=== PATIENT | female | born 1980 | race Caucasian/White ===

== ENCOUNTER → 2019-08-15 14:23 | Outpatient (CLI) | payer OTHER, SELFPAY ==
--- NOTE | ~2019-08-15 | MMUS_ITS ---
EXAMINATION: MM diagnostic sandra BI w grant, US breast BI limited HISTORY: Palpable lump at the 3:00 location of the right breast TECHNIQUE: Craniocaudal, mediolateral, and mediolateral oblique 3-D tomosynthesis images of the roshan ts were performed and synthetic 2-D images were generated. CAD analysis was submitted and interpreted . High resolution limited bilateral breast ultrasound was performed. COMPARISON: No prior mammogram is currently available for comparison. BREAST PARENCHYMAL COMPOSITION: There are scattered areas of fibroglandular density. FINDINGS: MAMMOGRAPHIC FINDINGS: Right breast: There is no suspicious mass, calcification, or architectural distortion. No mammographi c correlate is identified for the reported palpable abnormality of concern in the right breast. Left breast: There is a 3 mm round, equal density mass in the anterior third of the outer breast at t he 3:00 location 4 cm from the nipple which has suggestion of an internal fat component. No suspiciou s calcification or architectural distortion are identified. ULTRASOUND: There is no evidence of focal abnormal solid or cystic lesion in the vicinity of the reported palpabl e abnormality of concern in the right breast. There is a 4 mm oval, circumscribed, parallel, hypoecho ic mass with subtle central echogenicity at the 3:00 location near the nipple corresponding to the ma mmographic finding in question the left breast which has imaging features of an intramammary lymph no de. IMPRESSION: 1. No specific mammographic or sonographic correlate is identified for the reported palpable abnormal ity of concern in the right breast. Further evaluation at this time should be based on clinical asses sment. Continued follow-up physical examination is recommended. 2. Recommend routine screening mammography in one year. BI-RADS Category 2: Benign finding(s). Reviewed, dictated and finalized at location A. IMPRESSION: 1. No specific mammographic or sonographic correlate is identified for the repo rted palpable abnormality of concern in the right breast. Further evaluation at this time should be based on clinical assessment. Continued follow-up physical examination is recommended. 2. Recommend routine screening mammography in one year. BI-RADS Category 2: Benign finding(s).
== END ==
PROVIDERS: Visit Provider Nurse Practitioner Obstetrics & Gynecology
DX: N64.4 Mastodynia (principal); N63.10 Unspecified lump in the right breast, unspecified quadrant
CPT/HCPCS: 76642; 77062; 77066; G0279

== ENCOUNTER 2019-12-28 15:15 | Outpatient (RCR) | payer OTHER, SELFPAY ==
--- NOTE | 2019-11-28 16:17 | PTOPEVAL ---
PHYSICAL THERAPY EVALUATION Thank you for referring Jin Man to [facility].? The patient was evaluated with the diagnosis of rosas. ankle/foot pain. The patient is scheduled to be seen for therapy? 2 x/week for 4 weeks. Please review, sign, date and return this plan of care FANI. I agree with and certify that the following plan of care is medically necessary. Referring Physician Date Attending Provider: Adrianna Emery NP *PT Outpatient Evaluation Start: 11/28/19 15:03 Freq: Status: Active Protocol: Document 11/28/19 15:04 [facility] (Rec: 11/28/19 16:17 [facility] [id number]) Evaluation Evaluation Information Problem Diagnosis rosas. foot pain Onset chronic Cause started after achilles surgery Additional Evaluation Detail The patient had the left achilles repaired 3-4 years ago and plantar faciitis rosas. The patient had shots but it didn't help-had no therapy. Subjective Information The patient saw the MD due to Query Text:As Reported By Patient/ rosas. leg rash and foot pain. Family The patient has increased pain at ankles over time-worse the last 5 months. The more she is on her feet, the worse the pain gets. 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 Home Meds Must Be Re-entered With Each Visit. Pain Assessment Timing of Pain Assessment Timing of Pain Assessment Assessment Pain Scale Pain Scale Used Numeric (1 - 10) Self Report Pain Assessment Right Ankle(s) Reported Pain Level 5 Pain Description Pinching,Pressure,Tightness Pain Frequency C
--- NOTE | 2019-12-05 16:26 | PCPTNOTE ---
Patient called & cancelled scheduled appointment this date due to patient scheduling error.
--- NOTE | 2020-01-09 08:44 | PTOPEVAL ---
PHYSICAL THERAPY DISCHARGE SUMMARY Thank you for referring Jin Man to [facility].? The patient has been seen for therapy? 2x/week for 4 weeks. All goals have been met and PT is discontinued. Please review, sign, date and return this plan of care FANI. I agree with and certify that the following plan of care is medically necessary. Referring Physician Date Attending Provider: Adrianna Emery NP *PT Outpatient Evaluation Start: 11/28/19 15:03 Freq: Status: Active Protocol: Document 01/09/20 08:33 [facility] (Rec: 01/09/20 08:43 [facility] [email or web address]) Therapy Assessment Status Assessment Status Discharge Pain Assessment Timing of Pain Assessment Timing of Pain Assessment Post-Treatment Pain Scale Pain Scale Used Numeric (1 - 10) Self Report Pain Assessment Right Ankle(s) Reported Pain Level 0 Left Ankle(s) Reported Pain Level 0 Pain Score Pain Score 0,0: Self Report Interventions Used Interventions Used By Clinicians Education,Exercise,Manual Therapy Techniques,Ultrasound Pain Relief Interventions Used By Exercise,Inactivity/Rest, Patient Walking Lower Extremity Range of Motion General Lower Extremity Range of Motion Gross Lower Extremity Range of Motion ankle active motion: left DF Comments 10, PF 63, inversion 38, eversion 32 (all improved) right ankle DF 12, PF 46, inversion 43, eversion 24 Lower Extremity Muscle Strength Testing General Lower Extremity Strength Reason Not Measured WNL/Left,WNL/Right Gross Lower Extremity Strength *patient able to rise to toes rosas. without pain *patient able to stand single leg without discomfort for 30 seconds + without support Palpation Assessment Palpation Palpation non tender at left achilles and scar. Scar adhesions and achilles tendon 75% + improved flexibility. Gait Assessment Gait Pattern Assessment Gait Pattern No Deviations/Normal Other Gait Observations gait greatly improved and minimal to no notable deviations on level surfaces and with mild challenges 2 Minute Walk Total Distance Walked (feet) 464 2 Minute Walk Gait Speed Score (feet/ 3.86 second) Number of Breaks Required 0 2 Minute Walk Test Comments moderate increased limp left after 150' and no heel strike or toe off rosas. throughout
== END 2020-02-14 15:40 | disposition home or self-care (01) ==
LOC: ANHPT 15:15
PROVIDERS: PCP Internal Medicine; Visit Provider Nurse Practitioner
DX: M79.671 Pain in right foot (principal); M79.672 Pain in left foot
CPT/HCPCS: 97035; 97110; 97140; 97162

== ENCOUNTER → 2020-04-15 10:51 | Outpatient (CLI) | payer OTHER, SELFPAY ==
--- NOTE | ~2020-04-15 | US_ITS ---
EXAMINATION: US renal BI EXAM DATE: 04/15/2020 11:37 INDICATION: Cyst of kidney. CT scan outside institution one week ago demonstrating 1.3 cm hypodensity right. TECHNIQUE: Multiple grayscale and Doppler images of the kidneys were obtained (by a technologist who performed the scan) and subsequently reviewed. There is no prior study for comparison. FINDINGS: Right kidney: There is normal contour and echogenicity. It measures 11.2 x 5.1 x 5.0 centimeters. He terogeneous echogenicity region measuring 2.3 x 1.6 x 2.0 cm. Portion appears cystic and another port ion appears hyperechoic, could be hemorrhage, fat, calcium, milk of calcium. Sonographically indeterm inate lesion. There is no hydronephrosis. Left kidney: There is normal contour and echogenicity. It measures 10.5 x 5.2 x 6.0 centimeters. Th ere are no focal renal lesions identified. There is no hydronephrosis. Bladder unremarkable. IMPRESSION: Indeterminate right renal lesion. CT or MRI abdomen without and with contrast recommended . Reviewed, dictated and finalized at location B. 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 CT or MRI abdomen without and wit h contrast recommended.
--- NOTE | ~2020-04-15 | US_ITS ---
EXAMINATION: US transvaginal DATE: 04/15/2020 11:37 INDICATION: Hemoperitoneum, left adnexal cyst TECHNIQUE: Multiple endovaginal sonographic images of the pelvis were obtained. COMPARISON: None. FINDINGS: The uterus is surgically absent. The right ovary is not visualized however no right adnexal abnormality is seen. The left ovary measures 2.7 x 1.8 x 2.9 cm. No abnormality of the left adnexa i s seen.. There is normal vascular flow in the left ovary. There is no free fluid in the pelvis. IMPRESSION: 1. No left adnexal cyst or free pelvic fluid identified. Reviewed, dictated and finalized at location A. 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
--- NOTE | ~2020-04-15 | XR_ITS ---
EXAMINATION: XR hip RT min 2V DATE: 04/15/2020 11:42 INDICATION: Right hip pain TECHNIQUE: Two views of right hip were obtained. COMPARISON: None. FINDINGS: Bone alignment is normal. There is no fracture. A bone island is noted in the right acetabu lum. The soft tissues are unremarkable. IMPRESSION: 1. Normal right hip radiographs. 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
== END ==
PROVIDERS: PCP Internal Medicine; Visit Provider Clinical Nurse Specialist
DX: M25.551 Pain in right hip (principal); K66.1 Hemoperitoneum; N28.1 Cyst of kidney, acquired; N94.9 Unspecified condition associated with female genital organs and menstrual cycle
CPT/HCPCS: 73502; 76775; 76830

== ENCOUNTER 2020-04-25 16:28 | Outpatient (CLI) | payer OTHER, SELFPAY ==
--- NOTE | ~2020-04-25 | MR_ITS ---
EXAMINATION: MR abdomen wo/w con DATE: 04/25/2020 17:59 INDICATION: Indeterminate right renal lesion TECHNIQUE: Magnetic resonance imaging (MRI) of the abdomen was performed without and with 18 mL Multi darren intravenous contrast. Sequences included coronal T2-weighted SS-FSE, coronal and axial FS 2D-F IESTA, axial STIR FSE, axial T2-weighted SS-FSE, axial T2-weighted FS SS-FSE, axial diffusion-weighte d SE, axial dual-echo T1-weighted FSPGR, and axial and coronal T1-weighted LAVA. Postcontrast axial T 1-weighted LAVA images were obtained in a time course. Postcontrast coronal T1-weighted LAVA images w ere obtained. COMPARISON: Ultrasound dated 04/15/2020 FINDINGS: Heart size is normal. No pericardial or pleural effusion. All bladder is not visualized and likely posadas rgically absent. Liver, spleen, pancreas, bilateral adrenal glands and left kidney are normal. 1.3 cm mildly complex cystic lesion at the lower pole of the right kidney with hairline thin internal septa tion with very subtle discernible but not measurable enhancement consistent with a Bosniak 2 lesion. Small fluid-filled diverticulum at the proximal descending colon without adjacent inflammatory change to suggest diverticulitis. Bowels are otherwise unremarkable. No pathologically enlarged abdominal l ymphadenopathy. Bones are unremarkable with normal marrow signal throughout. IMPRESSION: 1. Minimally complex 1.3 cm benign Bosniak 2 cystic lesion at the lower pole of the right kidney whic h requires no further follow-up. Reviewed, dictated and finalized at location A. IMPRESSION: 1. Minimally complex 1.3 cm benign Bosniak 2 cystic lesion at the lower pole of the right kidney which requires no further follow-up.
[2020-04-25 17:21] LABS: Estimated Glomerular Filt Rate > 60
== END 2020-04-25 16:29 | disposition home or self-care (01) ==
PROVIDERS: PCP Internal Medicine; Visit Provider Clinical Nurse Specialist
DX: N28.9 Disorder of kidney and ureter, unspecified (principal)
CPT/HCPCS: 74183; A9577

== ENCOUNTER → 2020-05-29 13:24 | Outpatient (CLI) | payer OTHER, SELFPAY ==
--- NOTE | ~2020-05-29 | XR_ITS ---
XR ankle RT min 3V DATE: 05/29/2020 14:12 INDICATION: Right ankle injury, sprain TECHNIQUE: 4 views COMPARISON: None FINDINGS: There is mild soft tissue swelling, greater laterally. No recent fracture or dislocation of the ankle or disruption of the ankle mortise. There is suggestio n of ankle joint effusion. No periosteal reaction or bone destruction. Mild plantar calcaneal enthesopathy. IMPRESSION: Suggestion of ankle joint effusion Soft tissue swelling Mild plantar calcaneal enthesopathy Reviewed, dictated and finalized at location A.
== END ==
PROVIDERS: PCP Internal Medicine; Visit Provider Clinical Nurse Specialist
DX: S93.409A Sprain of unspecified ligament of unspecified ankle, initial encounter (principal); M79.89 Other specified soft tissue disorders; M77.31 Calcaneal spur, right foot
CPT/HCPCS: 73610

== ENCOUNTER → 2020-06-30 15:19 | Outpatient (CLI) | payer OTHER, SELFPAY ==
--- NOTE | ~2020-06-30 | MR_ITS ---
EXAMINATION: MR ankle RT wo con DATE: 06/30/2020 16:02 INDICATION: Right ankle sprain post injury one and a half months prior presenting with persistent med ial sided pain, swelling and burning sensation. TECHNIQUE: Magnetic resonance imaging (MRI) of the right ankle was performed without intravenous cont rast. Sequences included sagittal, coronal, and axial proton-density weighted fast spin echo without and with fat saturation. COMPARISON: None. FINDINGS: Medial ankle ligaments: There is prominent thickening and amorphous increased signal of the anterior superficial deltoid liga ment with surrounding soft tissue edema consistent with moderate grade sprain. There is additional in creased signal and disorganized appearance to the deep deltoid ligament including lax and discontiguo us ligament fibers consistent with additional moderate to high-grade sprain. The spring ligament comp reji remains normal. Lateral ankle ligaments: The anterior and posterior inferior tibiofibular and posterior talofibular ligaments are normal. Ther e are additional moderate to high-grade tears of the anterior talofibular and calcaneofibular ligamen ts. Tendons: Achilles tendon is normal. The peroneus longus and brevis tendons are normal. The tibialis anterior a nd extensor hallucis longus and extensor digitorum longus tendons are normal. The tibialis posterior, flexor digitorum longus and flexor hallucis longus tendons are normal. Plantar fascia: Very small plantar calcaneal spur at the origin of the otherwise normal plantar aponeurosis. Bones/other: There is prominent marrow edema of the talus centered along the medial process and neck of the talus likely related to the previous noted medial ankle sprain. Review of radiograph from 05/29/2020 demonst rate several tiny calcific densities in this region suggesting tiny cortical avulsion fracture fragme nts arising from the talus. Bone alignment is normal. Otherwise normal marrow signal with no other fr actures or pathologic marrow replacing process. Fluid: Small right ankle joint effusion. IMPRESSION: 1. Moderate to high-grade sprains of the deep and superficial deltoid ligament, the latter with likel y associated tiny avulsion fracture fragment arising from the talar footplate. 2. moderate to high-grade sprains at the lateral ankle of the anterior talofibular and calcaneofibula r ligaments 3. Small right ankle joint effusion. Reviewed, dictated and finalized at location A. IMPRESSION: 1. Moderate to high-grade sprains of the deep and superficial deltoid ligament, the latter with likely associated tiny avulsion fracture fragment arising from the talar footplate. 2. moderate to high-grade sprains at the lateral ankle of the anterior talofibu lar and calcaneofibular ligaments 3. Small right ankle joint effusion.
== END ==
PROVIDERS: Visit Provider Clinical Nurse Specialist
DX: M25.471 Effusion, right ankle (principal); S93.401A Sprain of unspecified ligament of right ankle, initial encounter
CPT/HCPCS: 73721

== ENCOUNTER 2022-03-20 13:50 | Emergency (ER) | payer OTHER, SELFPAY ==
--- NOTE | ~2022-03-20 | XR_ITS ---
XR hand LT min 3V DATE: 03/20/2022 14:14 INDICATION: Hyperextension injury of third digit TECHNIQUE: 3 views of left hand COMPARISON: None FINDINGS: A subtle approximately 0.5 mm focal density is noted at the anterior base of the distal pha lanx of the third digit. This may be a small degenerative ossicle or very small cortical avulsion fra cture of uncertain age. No fracture or dislocation, periosteal reaction or bone destruction is noted otherwise. No erosive ch oziel. IMPRESSION: Subtle approximately 0.5 mm focal density of anterior base of distal phalanx of third dig it; see differential diagnosis above Reviewed, dictated and finalized at location A. 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
[2022-03-20 13:56] VITALS: BP 150/73; PULSE 87; RESP 20; TEMP 36.6; O2SAT 99
--- NOTE | 2022-03-20 14:05 | ED.UPPEXIN ---
HPI - Extremity Injury (Upper) General Chief Complaint: Extremity Injury, Upper Stated Complaint: left hand middle finger numb/pain History of Present Illness HPI narrative: patient presents with left hand and fingers pain. thinks she may have bent finger back when lifting water at work, but pain did not start for 3 days after the incident. no deformity no bruising no swelling no open area noted. Related Data Allergies Allergy/AdvReac Type Severity Reaction Status Date / Time ciprofloxacin AdvReac Unknown Nausea and Verified 12/01/20 13:05 Vomiting SOB Penicillins AdvReac Unknown Nausea and Verified 12/01/20 13:05 Vomiting SOB Review of Systems Review of Systems: CONSTITUTIONAL: Denies fever, chills, or sweats. EYES: Denies visual changes, redness, or discharge. ENT: Denies rhinorrhea, congestion, sore throat, or otalgia. CARDIOVASCULAR: Denies chest pain, palpitations, or edema. RESPIRATORY: Denies cough or dyspnea. GASTROINTESTINAL: Denies abdominal pain, nausea, vomiting, or diarrhea. GENITOURINARY: Denies dysuria or hematuria. SKIN: Denies rash or itching. MUSCULOSKELETAL: Denies back pain, joint pain, or myalgia. NEUROLOGIC: Denies headache, numbness, or weakness. PSYCHIATRIC: Denies anxiety or depression. [facility] Past Medical History Medical History Achilles tendinitis, left leg IBS (irritable bowel syndrome) Wears glasses Weight gain Surgical History Surgical History H/O: hysterectomy History of cholecystectomy History of foot surgery left Family History Family History Mother Diabetes mellitus COPD (chronic obstructive pulmonary disease) Emphysema lung Heart problem Arthritis Kidney disorder Grandparent Breast cancer Other Depression Heart disease High cholesterol Lung cancer Neuropathy Social History Social History Social History: caffeine-soda 12 oz daily Smoking status: Never smoker Alcohol intake: current Alcohol use details: rarely Substance use: never Substance use type: does not use Gender identity (if verbalized by the patient): Female Comments At time of signature, agree with nursing past medical, surgical, social and family history. There is no relevant family history pertinent to the presenting complaint Exam Narrative: GENERAL: Well-appearing, well-nourished, and in no acute distress. HEAD: Normocephalic, atraumatic. EYES: PERRLA and EOMI. ENT: Nares clear, no rhinorrhea or epistaxis. Mucous membranes moist. NECK: Supple. CHEST: Clear to auscultation. No respiratory distress. HEART: Regular rate and rhythm. No murmur heard. Normal peripheral pulses. ABDOMEN: Soft, nontender, nondistended, normal active bowel sounds. EXTREMITIES: Normal range of motion. No edema. HAND EXAM - Skin intact, no laceration, no swelling, no erythema, normal digit cascade with flexion of fingers, median nerve, ulnar nerve, radial nerve is intact. Normal sensation of each side of each finger, can perform `ok? sign, `cross over finger test of index and middle fingers? and `thumbs up? sign, normal thumb opposition, no scissoring. good capillary refill and radial pulse. normal flexion and extension of fingers and wrist. normal supination at wrist. Normal forearm and elbow exam. SKIN: Warm, dry, no rash. NEURO: No focal deficits. Alert and oriented x3. [place] Coma Scale Eye Opening: Spontaneous 4 [place] Coma Scale Motor: Obeys Commands 6 [place] Coma Scale Verbal: Oriented 5 [place] Coma Scale Total 15 Course Course Level of Care: Express Care Visit Vital Signs Vital signs: Vital Signs Temperature 36.6 C 03/20/22 13:56 Pulse Rate 87 03/20/22 13:56 Respiratory Rate 20 03/20/22 13:56 Blood Pressure 150/73 H 03/20/22 1
== END 2022-03-20 14:48 | disposition home or self-care (01) ==
PROVIDERS: Emergency Provider Nurse Practitioner Family; PCP Internal Medicine
DX: S63.613A Unspecified sprain of left middle finger, initial encounter (principal); X58.XXXA Exposure to other specified factors, initial encounter; S60.222A Contusion of left hand, initial encounter
CPT/HCPCS: 29130; 73130; 99213; G0463

== ENCOUNTER 2022-12-22 16:41 | Emergency (ER) | payer OTHER, SELFPAY ==
[2022-12-22 16:55] VITALS: BP 123/84; PULSE 79; RESP 16; TEMP 36.8; O2SAT 100
--- NOTE | 2022-12-22 17:03 | ED.URI ---
HPI - URI/Sore Throat General Chief Complaint: Upper Respiratory Infection Stated Complaint: SINUS CONGESTION/DRAINAGE/SORE THROAT/EARS Time Seen by Provider: 12/22/22 17:03 Source: patient Mode of arrival: ambulatory Limitations: no limitations History of Present Illness HPI Narrative: 42-year-old female presents with complaint of nasal congestion, cough, sore throat, postnasal drainage, pressure to bilateral ears for 5 days. Afebrile. No chest pain or shortness of breath. Taking Mucinex, Zyrtec and Flonase. Reports not getting any better, no worsening of symptoms. 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 Would like a strep test. Has had COVID exposure but does not want COVID testing. All systems reviewed and negative except as noted above. Related Data Allergies Allergy/AdvReac Type Severity Reaction Status Date / Time ciprofloxacin AdvReac Unknown Nausea and Verified 12/22/22 17:07 Vomiting SOB Penicillins AdvReac Unknown Nausea and Verified 12/22/22 17:07 Vomiting SOB Review of Systems Review of Systems: CONSTITUTIONAL: Denies fever, chills, or sweats. Reports fatigue. EYES: Denies visual changes, redness, or discharge. ENT: Reports rhinorrhea, congestion, sore throat, bilateral ear pressure. CARDIOVASCULAR: Denies chest pain, palpitations, or edema. RESPIRATORY: Reports cough. Denies dyspnea. GASTROINTESTINAL: Denies abdominal pain, nausea, vomiting, or diarrhea. GENITOURINARY: Denies dysuria or hematuria. SKIN: Denies rash or itching. MUSCULOSKELETAL: Denies back pain, joint pain, or myalgia. NEUROLOGIC: Denies headache, numbness, or weakness. PSYCHIATRIC: Denies anxiety or depression. All other systems reviewed are negative, except as documented in HPI. [facility] Past Medical History Medical History Achilles tendinitis, left leg IBS (irritable bowel syndrome) Wears glasses Weight gain Surgical History Surgical History H/O: hysterectomy History of cholecystectomy History of foot surgery left Family History Family History Mother Diabetes mellitus COPD (chronic obstructive pulmonary disease) Emphysema lung Heart problem Arthritis Kidney disorder Grandparent Breast cancer Other Depression Heart disease High cholesterol Lung cancer Neuropathy Social History Social History Social History: caffeine-soda 12 oz daily Smoking status: Never smoker Alcohol intake: current Alcohol use details: rarely Substance use: never Substance use type: does not use Gender identity (if verbalized by the patient): Female Comments At time of signature, agree with nursing past medical, surgical, social and family history. There is no relevant family history pertinent to the presenting complaint. Exam Narrative: GENERAL: This is a well-nourished, well-developed patient, in no apparent distress. HEAD: normocephalic, atraumatic. EYES: PERRL. Sclera clear/white. Vision is grossly intact. EARS: External ears normal, auditory canals clear and without drainage, fluid bilateral TMs without erythema or perforation. Hearing grossly intact. NOSE: External nose normal with clear nasal drainage, mild erythema to nares without swelling. THROAT: Mucous membranes moist, clear postnasal drainage without erythema or swelling. No exudates. NECK: Neck supple, non-tender without lymphadenopathy, masses or thyromegaly. CARDIOVASCULAR: Regular rate and rhythm without murmurs, gallops, or rubs. RESPIRATORY: Clear to auscultation. Breath sounds equal bilaterally. No wheezes, rales, or rhonchi. SKIN: warm, Dry, intact with no suspicious lesions or rash, good texture and turgor. NEURO: awake, alert, and oriented to person, place and time. There were no obvious focal
== END 2022-12-22 17:15 | disposition home or self-care (01) ==
PROVIDERS: Emergency Provider Nurse Practitioner Family; PCP Clinical Nurse Specialist
DX: J06.9 Acute upper respiratory infection, unspecified (principal)
CPT/HCPCS: 87081; 87880; 99213; G0463

== ENCOUNTER 2023-01-03 15:30 | Outpatient (RCR) | payer OTHER, SELFPAY ==
[2022-12-08 15:32] VITALS: BP_SYST 106
--- NOTE | 2022-12-08 16:36 | OPREHPOC ---
Outpatient Therapy Plan of Care This is a Multidisciplinary Plan of Care that may contain components documented by all disciplines (PT, OT, and ST.) PT Problem 1 PT Problem #1 Knowledge Deficit PT Goal 1 Goal Pt to be IND with issued HEP Target Visit 8 PT Problem 2 PT Problem #2 Pain PT Goal 1 Goal Pt to report shoulder pain no greater than 3/10 in the last week. Target Visit 8 PT Goal 2 Goal Pt to report 75% improvement in overall symptoms. Target Visit 8 PT Problem 3 PT Problem #3 Impaired Range of Motion PT Goal 1 Goal Pt to report no increase in pain with active cervical ROM Target Visit 8 PT Goal 2 Goal Pt to improve active shoulder flexion and abduction to 120 deg without an increase in pain Target Visit 8 PT Problem 4 PT Problem #4 Impaired Sensation PT Goal 1 Goal Pt to decline radicular symptoms in the last week Target Visit 8 PT Problem 5 PT Problem #5 Impaired Strength PT Goal 1 Goal Pt to demonstrates R shoulder strength equal to L shoulder Target Visit 8 PT Goal 2 Goal Pt to demonstrate a 30lb lift and carry without an increase in pain Target Visit 8
--- NOTE | 2022-12-08 16:36 | PTOPEVAL1 ---
Assessment and note entered by Chantel Almaraz, PT, DPT Evaluation Information Assessment Status Evaluation Diagnosis R shoulder pain Onset 1 month Subjective Information Pt states about a month ago she was picking up her school bag and felt a pressure in her shoulder, without a pop. She states mowing her grass or when she is resting on her shoulder when driving is when she gets the most pain. She also reports trouble sleeping. Pt reports pain over a 10/10 when mowing. Reported Pain Level Pain Score 4: Self Report Assessment PT Clinical Summary Jin presents to therapy today for her initial evaluation with a diagnosis of R shoulder pain. Today she demonstrates decreased shoulder strength , decreased shoulder ROM (actively and passively), and cervical ROM from expected. She demonstrates lots of increased tenderness to palpation throughout her R shoulder and cervical region. She demonstrates decreased functional arm swing during ambulation. Skilled therapy services are indicated to manage pain, improve strength and ROM, and to return to PLOF. UEFI: 53/80 Plan of Care Interventions Electrical Stimulation,Hot Pack/Cold Pack,Manual Therapy,Mechanical Traction,Neuro Re-education, Patient/Caregiver Educati,Therapeutic Activities, Therapeutic Exercise PT Services Indicated Yes Treatment Frequency and 2x/wk for 8 visits Duration These treatments will address the objective and functional deficits as defined above. The patient will be advanced safely and appropriately in order for the patient to progress towards his/her prior level of function. Additional exercises will be introduced and as well as a comprehensive home exercise program upon discharge, if needed, ?to ensure carryover of functional gains achieved in the clinic. This treatment plan has been reviewed and agreement upon by the patient.
--- NOTE | 2022-12-23 16:12 | PCPTNOTE ---
Patient called to cancel this date to illness.
--- NOTE | 2022-12-27 15:54 | PCPTNOTE ---
Pt no showed today due to forgetting her appt. for a school function.
--- NOTE | 2023-01-05 16:13 | PCPTNOTE ---
Patient did not show up for scheduled appointment this date. Called and spoke with pt, she has been rescheduled.
--- NOTE | 2023-01-19 09:34 | PCPTNOTE ---
Patient called & cancelled scheduled appointment this date due to having Covid. She states she will call back to reschedule when she is feeling better.
--- NOTE | 2023-03-01 11:28 | PTOPDC ---
Assessment and note entered by Chantel Almaraz, PT, DPT Evaluation Information Assessment Status Discharge - Pt Not Presen Diagnosis R shoulder pain Onset 1 month Subjective Information Pt called and cancelled her appointment on and stated she would call back to reschedule. We have not heard from her at this time. Assessment PT Clinical Summary Jin completed 6 visits of skilled therapy from 12/08/22 to 01/19/23. She will be discharged at this time d/t lack of therapy attendance. If she needs additional therapy at a later date will need a new order.
== END 2023-03-01 12:52 | disposition home or self-care (01) ==
LOC: ANHGOSHPT 15:30
PROVIDERS: PCP Internal Medicine; Visit Provider Clinical Nurse Specialist
DX: M25.511 Pain in right shoulder (principal)
CPT/HCPCS: 97012; 97014; 97110; 97140; 97161; 97530; 99199; G0283

== ENCOUNTER 2023-03-08 08:25 | Emergency (ER) | payer OTHER, SELFPAY ==
--- NOTE | 2023-03-08 08:30 | ED.URI ---
HPI - URI/Sore Throat General Chief Complaint: Upper Respiratory Infection Stated Complaint: Ear Irritation;Sore Throat Time Seen by Provider: 03/08/23 08:30 Source: patient Mode of arrival: ambulatory Limitations: no limitations History of Present Illness HPI Narrative: Jin is a 42-year-old female patient presenting to the clinic today with complaints of ear itching, runny nose, and itchy throat. She reports symptoms started 1-2 days ago. No known fever or chills. Denies any chest pain or shortness of breath. She had COVID back in January. MD elicited complaint: sore throat and nasal congestion Related Data Allergies Allergy/AdvReac Type Severity Reaction Status Date / Time ciprofloxacin AdvReac Unknown Nausea and Verified 03/01/23 08:04 Vomiting SOB Penicillins AdvReac Unknown Nausea and Verified 03/01/23 08:04 Vomiting SOB Review of Systems Review of Systems: Pertinent positives per HPI. Patient denies any fever, chills, rash, headache, visual changes, dizziness, cough, shortness of breath, chest pain, palpitations, nausea, vomiting, diarrhea, constipation, abdominal pain, or any urinary issues. [facility] Past Medical History Medical History Achilles tendinitis, left leg IBS (irritable bowel syndrome) Wears glasses Weight gain Surgical History Surgical History H/O: hysterectomy History of cholecystectomy History of foot surgery left Family History Family History Mother Diabetes mellitus COPD (chronic obstructive pulmonary disease) Emphysema lung Heart problem Arthritis Kidney disorder Grandparent Breast cancer Other Depression Heart disease High cholesterol Lung cancer Neuropathy Social History Social History Social History: caffeine-soda 12 oz daily Smoking status: Never smoker Alcohol intake: current Alcohol use details: rarely Substance use: never Substance use type: does not use Lack of Transportation: No Lack of Food: Never True Current Housing: I Have Housing Concerned About Future Housing: No Difficulty Paying Gas/Electric Bills: No Difficulty Paying for Meds: No Currently Unemployed: No Education: High School Diploma/GED Difficulty w/ Childcare or Family Care: No Gender identity (if verbalized by the patient): Female Comments At the time of my signature, I reviewed and agree with the nursing past medical, surgical, social, and family history. There is no relevant family history pertinent to the patient complaint. Exam Narrative: General: Well-developed, well nourished, in no apparent distress Head: Normocephalic, atraumatic Eyes: Pupils equally round and reactive to light bilaterally, EOM intact, sclera and conjunctive clear, no discharge, lids normal Ears: TMs intact and clear, ear canals clear, no drainage, grossly hearing normal. Nose: Nares patent, clear nasal discharge, no inflammation, no sinus tenderness. Mouth: Oral pharynx without lesions or masses, good dentition, MMM. Neck: Supple, trachea midline, no enlargement of anterior or posterior cervical nodes, no thyroid masses or goiter palpable. Cardio: Regular rate and rhythm, s1 and s2 normal, no murmur appreciated. Resp: Clear to auscultation bilaterally, no rhonchi, rales, wheezing or rubs Course Course Emergency Course: Portions of this record may have been created with voice recognition software. Level of Care: Express Care Visit Vital Signs Vital signs: Vital signs reviewed MDM - URI/Sore Throat MDM Narrative Medical decision making narrative: At the time of visit patient is resting comfortably on the exam table. Patient appears to be nontoxic. Labs: Strep test was performed and was negative i
[2023-03-08 08:34] VITALS: BP 121/82; PULSE 73; RESP 16; TEMP 36.7; O2SAT 98
== END 2023-03-08 08:48 | disposition home or self-care (01) ==
PROVIDERS: Emergency Provider Nurse Practitioner Family; PCP Internal Medicine
DX: J30.9 Allergic rhinitis, unspecified (principal)
CPT/HCPCS: 87081; 87880; 99213; G0463

== ENCOUNTER 2024-01-11 20:59 | Emergency (ER) | payer OTHER, SELFPAY ==
--- NOTE | ~2024-01-11 | CT_ITS ---
CT abdomen pelvis w con Ordering provider: Adrianna Todd PA-C History: 43 years Female with . abd pain, vomiting . Comparison: None. Technique: CT abdomen and pelvis with IV and without oral contrast. Automated exposure control and it erative reconstruction technique were employed. The dose-length product was 1241.54 mGy-cm. 100 mL Om nipaque 350 was given IV. Findings: VISUALIZED LOWER CHEST: Normal. UPPER ABDOMINAL ORGANS: Liver: Fat infiltration. Gallbladder: Status post cholecystectomy. Spleen: Normal. Stomach/duodenum: Normal. Pancreas: Normal. Adrenals: Normal. Kidneys: Simple Cyst in the right kidney lower pole measuring 1.6 cm. PELVIC ORGANS: The bladder is normal. BOWEL AND MESENTERY: Colon: No evidence of diverticulitis. No evidence of appendicitis. Small Bowel: Fluid is seen in the small bowel loops in the mid abdomen and pelvis which may be the du e to enteritis. No thickening of the wall. Clinical correlation advised. Peritoneum/mesentery: No free air or free fluid. No mesenteric lymphadenopathy. RETROPERITONEUM: Normal aorta. No retroperitoneal lymphadenopathy. MUSCULOSKELETAL: Superficial soft tissues: The superficial soft tissues are normal. Bones: Normal spine. IMPRESSION: 1. Slightly dilated small bowel loops in the mid abdomen suggestive of enteritis versus diarrhea. Cl inical correlation and follow-up advised 2. Fat infiltration of the liver. Reviewed, dictated and finalized at location [facility] IMPRESSION: 1. Slightly dilated small bowel loops in the mid abdomen suggestive of enterit is versus diarrhea. Clinical correlation and follow-up advised 2. Fat infiltration of the liver.
[2024-01-11 21:10] VITALS: BP 127/92; PULSE 108; RESP 22; TEMP 36.6; O2SAT 100
[2024-01-11] MEDS: SODIUM CHLORIDE 0.9% IV 1,000 ML 999 ML IV CONT (22:06)
[2024-01-11] MEDS: ONDANSETRON INJ 4 MG/2 ML VIAL IV PUSH (22:07)
[2024-01-11] MEDS: FAMOTIDINE 20 MG/2 ML VIAL IV PUSH (22:07)
[2024-01-11 22:16] LABS: Basophils Percent Auto 0.3 % (0.2-1.2); Eosinophils Absolute Auto 0.1 K/mm3 (0-0.3); Eosinophils Percent Auto 0.9 % (0-4.4); Hematocrit 42.2 % (37.0-47.0); Hemoglobin 14.6 g/dL (12.0-15.0); Immature Granulocyte Absolute 0.04 K/mm3 (0.00-0.031); Immature Granulocyte Percent A 0.3 % (0-0.5); Lymphocytes Absolute Auto 0.38 K/mm3 (0.9-3.2); Lymphocytes Percent Auto 2.7 % (18.3-44.2); Mean Corpuscular HGB Conc 34.6 g/dl (32-36); Mean Corpuscular Hemoglobin 30.9 pg (26-34); Mean Corpuscular Volume 89.4 fl (80-100); Mean Platelet Volume 10.3 fl (7.4-10.4); Monocytes Absolute Auto 0.8 K/mm3 (0.1-0.6); Monocytes Percent Auto 5.3 % (2.6-8.5); Neutrophils Absolute Auto 12.7 K/mm3 (1.3-6.7); Neutrophils Percent Auto 90.5 % (45.5-73.1); Platelet Count Result 235 k/mm3 (150-375); Red Blood Count 4.72 M/mm3 (4.2-5.4); Red Cell Distribution Width 12.2 % (11.5-14.5); White Blood Count 14.1 K/mm3 (4.5-10.0)
[2024-01-11 22:17] VITALS: BP 144/93; PULSE 94; RESP 18; O2SAT 100
[2024-01-11 22:27] LABS: Alanine Aminotransferase 20 U/L (6-35); Albumin Level 4.4 g/dL (3.5-5.1); Alkaline Phosphatase 117 U/L (38-126); Anion Gap 8 mmol/L (4-12); Aspartate Amino Transferase 26 U/L (14-36); Bilirubin,Total 1.5 mg/dL (0.2-1.3); Blood Urea Nitrogen 16 mg/dL (7-17); Calcium 8.9 mg/dL (8.4-10.2); Carbon Dioxide 24 mmol/L (22-30); Chloride 104 mmol/L (98-107); Estimated CRCL calculation 81 ml/min; Estimated Glomerular Filt Rate > 60; Glucose 155 mg/dL (65-110); Lipase 37 U/L (23-300); Sodium 136 mmol/L (137-145)
[2024-01-11 22:28] LABS: BEDSIDEPREGUCG Negative (Negative)
[2024-01-11 22:31] LABS: Add Urine Microscopic? YES; Appearance Urine Clear (Clear); Bacteria Urine 1+ /hpf; Bilirubin Urine Negative (Negative); Blood Urine Negative (Negative); Color Urine Yellow (Yellow); Glucose Urine UA Negative (Negative); Ketones Urine 3+ mg/dL (Negative); Leukocyte Esterase Ur Negative LEU/UL (Negative); Nitrate Urine Negative (Negative); Non Pathogenic Casts 0-2; Protein Urine Trace mg/dL (Negative); Specific Grav Ur 1.026 (1.001-1.035); Squamous Epithelial Cell Urine Few /hpf (Few); WBC Urine 0-5 /hpf (0-3); pH Urine 7.5 (5.0-9.0)
--- NOTE | 2024-01-11 22:41 | ED_ITS ---
HPI - Nausea/Vomiting/Diarrhea General Chief complaint: Nausea/Vomiting/Diarrhea Stated complaint: N/V Time Seen by Provider: 01/11/24 21:31 Source: patient Mode of arrival: ambulatory Limitations: no limitations History of Present Illness HPI Narrative: This is a 43 year old female that presents to the emergency department for nausea, vomiting and diarrhea. Ongoing since this afternoon. Reports diffuse abdominal pain. Denies fevers. Related Data Allergies Allergy/AdvReac Type Severity Reaction Status Date / Time ciprofloxacin AdvReac Unknown Nausea and Verified 01/03/24 11:25 Vomiting SOB Penicillins AdvReac Unknown Nausea and Verified 01/03/24 11:25 Vomiting SOB Review of Systems Review of Systems: CONSTITUTIONAL: Denies fever GASTROINTESTINAL: Reports abdominal pain, nausea, vomiting, and diarrhea. GENITOURINARY: Denies dysuria All systems reviewed & are unremarkable except as noted in HPI and below PMFSH Past Medical History Medical History Achilles tendinitis, left leg IBS (irritable bowel syndrome) Wears glasses Weight gain Surgical History Surgical History H/O: hysterectomy History of cholecystectomy History of foot surgery left Family History Family History Mother Diabetes mellitus COPD (chronic obstructive pulmonary disease) Emphysema lung Heart problem Arthritis Kidney disorder Grandparent Breast cancer Other Depression Heart disease High cholesterol Lung cancer Neuropathy Social History Social History Social History: caffeine-soda 12 oz daily Smoking status: Never smoker Alcohol intake: current Alcohol use details: rarely Substance use: never Substance use type: does not use Lack of Transportation: No Lack of Food: Never True Current Housing: I Have Housing Concerned About Future Housing: No Difficulty Paying Gas/Electric Bills: No Difficulty Paying for Meds: No Currently Unemployed: No Education: High School Diploma/GED Difficulty w/ Childcare or Family Care: No Gender identity (if verbalized by the patient): Female Exam Narrative: GENERAL: Well-appearing, well-nourished, and in no acute distress. HEAD: Normocephalic, atraumatic. EYES: EOMI. CHEST: Clear to auscultation. No respiratory distress. No wheezes rales or rhonchi HEART: Regular rate and rhythm. No murmur heard. Normal peripheral pulses. ABDOMEN: Soft, nondistended, normal active bowel sounds. Tender to palpation throughout the abdomen, without guarding EXTREMITIES: Normal range of motion. No edema. SKIN: Warm, dry, no rash. NEURO: No focal deficits. Alert and oriented x3. PSYCH: Normal mood and affect Course Course Emergency Course: patient updated on workup and agrees with plan of care Vital Signs Vital signs: Vital Signs Temperature 97.9 F 01/11/24 21:10 Pulse Rate 108 H 01/11/24 21:10 Respiratory Rate 22 H 01/11/24 21:10 Blood Pressure 127/92 H 01/11/24 21:10 Pulse Oximetry 100 01/11/24 21:10 Oxygen Delivery Room Air 01/11/24 21:10 Temperature 97.9 F 01/11/24 21:10 Pulse Rate 94 01/11/24 22:17 Respiratory Rate 18 01/11/24 22:17 Blood Pressure 144/93 H 01/11/24 22:17 Pulse Oximetry 100 01/11/24 22:17 Oxygen Delivery Room Air 01/11/24 21:10 MDM - Nausea/Vomiting/Diarrhea MDM Narrative Medical decision making narrative: Patient presents to the ER for abdominal pain, nausea and vomiting. She is afebrile and nontoxic appearing. Tachycardic upon arrival, this normalized with hydration. CBC with leukocytosis to 14.1, likely due to vomiting. Metabolic panel without concerning findings. Urine without signs of infection. CT abdomen/pelvis shows findings of enteritis. patient updated on workup and agrees with plan of care. Tolerating PO intake. She is to follow up with PCP. She was given warnings to return to the ER Differential Diagnosis Differential diagnosis: Likely food poisoning, gastroenteritis, dehydration and other (colitis) Lab Data Attestation: I reviewed the patient's lab results. 01/11/24 22:08 01/11/24 22:08 Labs: Lab Results 01/11/24 01/11/24 01/11/24 Range/Units 22:08 22:20 22:26 WBC 14.1 H (4.5-10.0) K/mm3 RBC 4.72 (4.2-5.4) M/mm3 Hgb 14.6 (12.0-15.0) g/dL Hct 42.2 (37.0-47.0) % MCV 89.4 (80-100) fl MCH 30.9 (26-34) pg MCHC 34.6 (32-36) g/dl RDW 12.2 (11.5-14.5) % Plt Count 235 (150-375) k/mm3 MPV 10.3 (7.4-10.4) fl Immature Gran % (Auto) 0.3 (0-0.5) % Neut % (Auto) 90.5 H (45.5-73.1) % Lymph % (Auto) 2.7 L (18.3-44.2) % [place] % (Auto) 5.3 (2.6-8.5) % Eos % (Auto) 0.9 (0-4.4) % Baso % (Auto) 0.3 (0.2-1.2) % Lymph # (Auto) 0.38 L (0.9-3.2) K/mm3 [place] # (Auto) 0.8 H (0.1-0.6) K/mm3 Eos # (Auto) 0.1 (0-0.3) K/mm3 Baso # (Auto) 0.0 (0.0-0.1) K/mm3 Abs Immat Gran (auto) 0.04 H (0.00-0.031) K/mm3 Absolute Neuts (auto) 12.7 H (1.3-6.7) K/mm3 Absolute Nucleated RBC 0.000 (0.0-0.012) K/mm3 Nucleated RBC % 0.0 (0.0-0.2) % Sodium 136 L (137-145) mmol/L Potassium 4.0 (3.4-5.0) mmol/L Chloride 104 (98-107) mmol/L Carbon Dioxide 24 (22-30) mmol/L Anion Gap 8 (4-12) mmol/L BUN 16 (7-17) mg/dL Creatinine 0.80 (0.7-1.0) mg/dL Estim Creat Clear Calc 81 ml/min Estimated GFR > 60 (59 - ) Glucose 155 H (65-110) mg/dL Calcium 8.9 (8.4-10.2) mg/dL Total Bilirubin 1.5 H (0.2-1.3) mg/dL AST 26 (14-36) U/L ALT 20 (6-35) U/L Alkaline Phosphatase 117 (38-126) U/L Total Protein 8.0 (6.3-8.2) g/dL Albumin 4.4 (3.5-5.1) g/dL Lipase 37 (23-300) U/L Urine Color Yellow (Yellow) Urine Appearance Clear (Clear) Urine pH 7.5 (5.0-9.0) Ur Specific [place] 1.026 (1.001-1.035) Urine Protein Trace (Negative) mg/dL Urine Glucose (UA) Negative (Negative) mg/dL Urine Ketones 3+ H (Negative) mg/dL Ur Blood (Man) Negative (Negative) Urine Nitrate Negative (Negative) Urine Bilirubin Negative (Negative) Urine Urobilinogen 1.0 (<2.0) mg/dL Leukocyte Esterase Rfl Negative (Negative) JESENIA/UL Urine RBC 3-5 H (0-2) /hpf Urine WBC 0-5 (0-3) /hpf Ur Squamous Epith Cells Few (Few) /hpf Urine Bacteria 1+ H /hpf Urine Casts 0-2 POC Urine HCG, Qual Negative (Negative) Imaging Data Radiologist's impression: ITS Impressions Abdomen/Pelvis CT 01/11/24 23:25 IMPRESSION: 1. Slightly dilated small bowel loops in the mid abdomen suggestive of enteritis versus diarrhea. Clinical correlation and follow-up advised 2. Fat infiltration of the liver. Critical Care Time Critical Care Time Critical Care Time: No Discharge Plan Discharge Clinical Impression: Gastroenteritis Patient Disposition: Home, Self-Care Condition: Improved Instructions: Gastroenteritis (ED) Additional Instructions: Return to the ER if you experience fever, abdominal pain with nausea and vomiting, you are unable to keep down liquids or solids, blood in the stool, pain or burning with urination, blood in the urine or any other symptoms that are concerning to you Small, frequent meals. [place] diet. Remain well hydrated. Ondansetron as needed for nausea Follow up with primary care doctor Prescriptions: New ondansetron 4 mg tablet,disintegrating 4 mg PO Q8H PRN (Reason: nausea and vomiting) Qty: 10 0RF No Action bupropion HCl [Wellbutrin XL] 300 mg tablet extended release 24 hr 300 mg PO QAM Qty: 90 1RF duloxetine [Cymbalta] 60 mg capsule,delayed release(DR/EC) 60 mg PO DAILY Qty: 90 1RF alprazolam [Xanax] 0.5 mg tablet 0.5 mg PO BID PRN (Reason: anxiety) Qty: 30 2RF Follow-up/Referrals: Azael Howard DO [Primary Care Provider] -
== END 2024-01-12 00:30 | disposition home or self-care (01) ==
PROVIDERS: Emergency Provider Physician Assistant; PCP Internal Medicine
DX: K52.9 Noninfective gastroenteritis and colitis, unspecified (principal); K58.9 Irritable bowel syndrome, unspecified; Z90.710 Acquired absence of both cervix and uterus; Z90.49 Acquired absence of other specified parts of digestive tract; K76.0 Fatty (change of) liver, not elsewhere classified
CPT/HCPCS: 36415; 74177; 80053; 81001; 81025; 83690; 85025; 96361; 96374; 96375; 99284; J2405; J7030; Q9967

== ENCOUNTER 2024-03-06 16:05 | Emergency (ER) | payer OTHER, SELFPAY ==
--- NOTE | ~2024-03-06 | XR_ITS ---
EXAMINATION: XR knee LT 3V DATE: 03/06/2024 17:26 INDICATION: Left knee pain. TECHNIQUE: 3 views of left knee were obtained. COMPARISON: None. FINDINGS: Alignment is normal. No fracture. There is mild tricompartmental osteoarthritis. No knee norma int effusion. IMPRESSION: 1. Mild left knee osteoarthritis. Reviewed, dictated and finalized at location A. [facility]POINT ADMIN
--- OUTSIDE RECORDS SUMMARY | 2024-03-06 16:07 | XMS_ITS | Clinical Summary ---
Author Organization [facility] [employer] Address [address] [place] [address] Care Team Providers Care Third Mate Name Role Phone Azael Howard DO Primary Care Provider [phone] Source Comments [facility] [employer],non-owned Affiliates and Associated Physician Practices is amultiple site organization consisting of ambulatory clinics and hospital sitesin [place], [place], [place] and [place]. This disclosure is being madepursuant to the Care Everywhere program and may not contain all information available regarding this patient. Last updated 17.[facility] [employer] Allergies Active Allergy Reactions Criticality Noted Date Comments Ciprofloxacin Rash Low 09/07/2013 vomiting Penicillins Rash Low 09/07/2013 vomiting Medications * Be aware that medications may not be up to date on this document. Alwaysverify current medications with the patient. Medication Sig Dispensed Refills Start Date End Date Status amitriptyline (ELAVIL) 25 MG tablet Take 25 mg by mouth at bedtime. Active DICLOFENAC PO Active Social History Tobacco Use Types Packs/Day Years Used Date Smoking Tobacco: Never Alcohol Use Standard Drinks/Week Comments Yes 0 (1 standard drink = 0.6 oz pur e alcohol) Sex and Gender Information Value Date Recorded Sex Assigned at Not on file Gender Identity Not on file Sexual Orientation Not on file Last Filed Vital Signs Vital Sign Reading Time Taken Comments Blood Pressure 122/68 06/16/2017 2:26 PM CDT Pulse 114 06/16/2017 2:26 PM CDT Temperature 37 ??C (98.6 ??F) 06/16/2017 2:26 PM CDT Respiratory Rate - - Oxygen Saturation 97% 06/16/2017 2:26 PM CDT Inhaled Oxygen Concentration - - Weight 88.5 kg (195 lb) 06/16/2017 2:26 PM CDT Height 154.9 cm (5' 1 ) 06/16/2017 2:26 PM CDT Body Mass Index 36.84 06/16/2017 2:26 PM CDT Plan of Treatment Health Maintenance Due Date Last Done Comments LIPID TESTING 1979 MAMMOGRAM 1979 PAP SMEAR 1979 HIV SCREENING 08/11/1994 HEPATITIS C SCREENING 08/07/1997 DTAP/TDAP/TD VACCINES (1 - Tdap) 08/11/1998 HEPATITIS B VACCINE (1 of 3 - 19+ 3-dose series) 08/11/1998 COVID-19 VACCINE (1 - 2023-2 5 season) 2023 INFLUENZA VACCINE (#1) 2023 DEPRESSION SCREENING 02/08/2024 ZOSTER VACCINE (1 of 2) 08/11/2029 HIB VACCINE Aged Out No longer eligi ble based on patient's age to complete this topic HPV VACCINE Aged Out No longer eligi ble based on patient's age to complete this topic MENINGOCOCCAL (Group B) VACCINE Aged Out No longer eligible based on patient's age to complete this topic MENINGOCOCCAL VACCINE Aged Out No sophia ayan eligible based on patient's age to complete this topic PNEUMOCOCCAL VACCINE Aged Out No long er eligible based on patient's age to complete this topic Care Teams Third Mate Relationship Specialty Start Date End Date Azael Howard DO PCP - General Internal Medicine 09/05/13
--- OUTSIDE RECORDS SUMMARY | 2024-03-06 16:08 | XMS_ITS ---
Author Organization [facility] Address [address], [place] [address] Care Team Providers Care Gas Or Water Meter Installer Name Role Phone Azael Howard Primary Care Provider UnavailJuan Castro DPM Unavailable [phone] ALLERGIES Allergen (clinical drug ingredient) Drug/Non Drug Allergy documented on EMR Reaction Allergy Type Onset Date Status penicillin G Penicillin G Sodium Unknown Drug Allergy Active Ciprofloxacin Unknown Drug Allergy Act sheridan REASON FOR VISIT left foot MEDICATIONS Medication SIG (Take, Route, Fr equency, Duration) Notes Start Date End Date Status DULoxetine HCl 60 MG Oral for 30 Days Active SOCIAL HISTORY Tobacco Use: Social History Observation Description Date Details (start date - stop date) Never Smoker NA - NA Sex Assigned At : Social History Observation Description Sex Assigned At Unknown Tobacco Use: Question Answer Notes Patient is a: nonsmoker Alcohol screening: Question Answer Notes Did you have a drink containing alcohol in the p ast year? 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) 05/23/19 24 Active confirmed 806409165 Problem Metatarsalgia, left foot (M77.42) 05/23/19 24 Active confirmed 656913327668010 VITAL SIGNS Blood pressure systolic 123 mm Hg 05/23/19 24 Blood pressure diastolic 77 mm Hg 024 Height 61 in 05/23/2023 Weight 198 lbs 05/23/2023 BMI 37.41 kg/m2 05/23/2023 Encounters Encounter Location Date Provider Diagnosis [facility] [address] [place] [address] 05/23/2023 Juan Fritz DPM 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 Today we did discuss treatment options and I did recommend a steroid injection into the interspace. Patient also instructed to wear wide and supportive shoes and avoid barefoot walking for at least the next 2-3 weeks. Today we did discuss the risks of the injection including risk of bruising, infection, soft tissue damage and steroid flare. 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 Today we did discuss treatment options and I did recommend a steroid injection into the interspace. Patient also instructed to wear wide and supportive shoes and avoid barefoot walking for at least the next 2-3 weeks. Today we did discuss the risks of the injection including risk of bruising, infection, soft tissue damage and steroid flare. Left foot third interspace Progress Notes * Examination Category Sub-Category Detail Notes General Examination GENERAL APPEARANCE: LEFT low er extremity Vascular: Dorsalis pedis and posterior tibial pulses are palpable 2 out of 4. Capillary refill time is less than 3 seconds to all digits of the left lower extremity. Skin temp is warm to warm and a proximal to distal fashion. Dorsal pedal hair growth present. Absent dependent rubor. No edema. Neurological: Epricritic sensation grossly intact to left foot. Proprioception intact at first metatarsal phalangeal joint. Dermatological: Toenails 1 through 5 are within normal limits. Webspaces 1 through 4 are clean, dry and intact. No rash noted. Skin is supple and well hydrated. No open wounds or ulcerations noted. Musculoskeletal: Muscle strength is 5 out of 5 for all groups of the lower extremity. No pain with medial to lateral compression of the calf muscle. Ankle joint and subtalar joint range of motion are full without pain or crepitus. No obvious pedal abnormalities or deformities noted. Positive pain with direct dorsal plantar palpation of the third interspace with positive Judah sign. No pain along the lateral ligament complex of the peroneal tendons. No pain along the lateral fifth metatarsal History and Physical Notes * HPI (History of Present Illness) Category Sub-Category Detail Notes Depression Screening PHQ-2 (2015 Edition) Little interest or pleasure in doing things?: Not at all Feeling down, depressed, or hopeless?: N ot at all Total Score: 0
--- OUTSIDE RECORDS SUMMARY | 2024-03-06 16:08 | XMS_ITS | Patient Health Record ---
Author Organization [facility] Address [address] [place] [address] Care Team Providers Care Claim Technician Name Role Phone EfremAzael dolan Primary Care Provider UnavailJuan Castro DPM Unavailable [phone] ALLERGIES Allergen (clinical drug ingredient) Drug/Non Drug Allergy documented on EMR Reaction Allergy Type Onset Date Status penicillin G Penicillin G Sodium Unknown Drug Allergy Active Ciprofloxacin Unknown Drug Allergy Act sheridan REASON FOR REFERRAL No Information MEDICATIONS Medication SIG (Take, Route, Fr equency, [...] lower limb (G57.82) 05/23/19 24 Active confirmed [id number] Problem Metatarsalgia, left foot (M77.42) 05/23/19 24 Active confirmed [id number] VITAL SIGNS Blood pressure diastolic 77 mm Hg 05/23/2023 Height 61 in 05/23/2023 Blood pressure systolic 123 mm Hg 05/23/2023 Weight 198 lbs 05/23/2023 BMI 37.41 kg/m2 05/23/2023 Encounters Encounter Location Date Provider Diagnosis [facility] 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 Left foot third interspace PLAN OF TREATMENT No Information Insurance Providers Payer Name Payer Address Payer Phone Subscriber Number Group Number Insured Name Patient Relationship to Insured Coverage Start Date Coverage End Date [facility] [address] [address] [place] [phone] [id number] Jin Man Self - patient is the insured MEDICAL (GENERAL) HISTORY Medical History History ICD Code depression irritable bowel syndrome neuropathy Surgical History Surgery Date(Month/Year) hysterectomy 07/2009 left achilles tendon repair 02/2017 gallbladder 2013
--- OUTSIDE RECORDS SUMMARY | 2024-03-06 16:08 | XMS_ITS | Patient Health Summary ---
Author Organization [facility] Address [address] [place] [address] Care Team Providers Care Ornament Setter Name Role Phone Azael Howard DO Primary Care Provider [phone] Note [address] [facility],non-owned Affiliates and Associated Physician Practices is amultiple site organization consisting of ambulatory clinics and hospital sitesin [place], [place], [place] and [place]. This disclosure is being madepursuant to the Care Everywhere program and may not contain all information available regarding this patient. Last updated 17.[facility] Allergies * Ciprofloxacin(Rash) -Low Criticality * Penicillins(Rash) -Low Criticality Medications * Be aware that medications may not be up to date on this document. Alwaysverify current medications with the patient. * amitriptyline (ELAVIL) 25 MG tablet Take 25 mg by mouth at bedtime. * DICLOFENAC PO Social History Tobacco Use Types Packs/Day Years [...] Mass Index 36.84 06/16/2017 2:26 PM CDT Procedures * INFLUENZA A+B - POINT OF CARE (AMB)(Performed 06/16/2017) Performed for Viral illness * STREP A SCREEN - POINT OF CARE (AMB) STL(Performed 06/16/2017) Performed for Viral illness * BREATH HYDROGEN/METHANE TEST(Performed 09/07/2013) Results * STREP A SCREEN - POINT OF CARE (AMB) STL (06/16/2017) Strep A Rapid POCT Negative Negative Strep A Internal Control Present Lot # [id number] Expiration Date [id number] Throat ENTIRE THROAT (SURFACE REGION OF NECK) / Unknown 06/16/2017 Reyna Cevallos [facility] - POINT O F CARE ORDERABLES * INFLUENZA A+B - POINT OF CARE (AMB) (06/16/2017) Influenza A Antigen Rapid Negative Negative Influenza B Antigen Rapid Negative Negative Influenza Internal Control neg/pos NEGATIVE - POSITIVE Influenza Lot Number [id number] Influenza Expiration Date Other NASOPHARYNGEAL SWAB / Unknown 06/16/2017 Reyna Cevallos [facility] - POINT O F CARE ORDERABLES Care Teams Ornament Setter Relationship Specialty Start Date End Date Azael Howard DO PCP - General Internal Medicine 09/05/13
--- OUTSIDE RECORDS SUMMARY | 2024-03-06 16:08 | XMS_ITS | Referral Summary ---
Author Organization [facility] Address [address] [place] [address] Care Team Providers Care Systems Development Consultant Name Role Phone Azael Howard DO Primary Care Provider [phone] Allergies Active Allergy Reactions Criticality Noted Date Comments Ciprofloxacin Anxiety,Vomiting Low Hot flashes, anxiety, vomiting Other Itching Low 04/30/2021 Medrol dose pack. She states she can take prednisone that is in the bottle . Penicillin G Anxiety,Vomiting Low Hot flashes, anxiety, vomiting Medications amitriptyline (ELAVIL) 25 mg tablet as needed Active ibuprofen (ADVIL,MOTRIN) 800 mg tablet TK 1 T PO TID PRF PAIN. D/C ALL OTHER NSAIDS WHILE TAKING THIS 0 Active cetirizine (ZyrTEC) 10 mg tablet Take 1 tablet (10 mg total) by mouth daily 2 Active fluticasone propionate (FLONASE) 50 mcg/actuation nasal spray fluticasone propionate 50 mcg/actuation nasal spray,suspension SHAKE LIQUID AND USE 1 TO 2 SPRAYS IN EACH NOSTRIL DAILY DIRECTED 1 Active doxycycline hyclate 100 mg capsule TAKE 1 CAPSULE BY MOUTH TWICE DAILY WITH MEALS FOR 7 DAYS [address] (CYMBALTA) 20 mg capsule Take 1 capsule (20 mg total) by mouth 2 (two) times a day 3 Active hyoscyamine (LEVSIN) 0.125 mg SL tablet hyoscyamine 0.125 mg sublingual tablet DISSOLVE 1 TABLET SUBLINGUALLY FOUR TIMES DAILY NEEDED Active albuterol HFA (PROVENTIL HFA,VENTOLIN HFA,PROAIR HFA) 90 mcg/actuation inhalerIndicati ons:Bronchitis Inhale 2 puffs every 4 (four) hours as needed for shortness of breath or wheezing 8 g 3 Active inhalational spacing device (Aerochamber MV) spacerIndicatio ns:Bronchitis Use with albuterol inhaler 1 each 3 Active Active Problems Problem Noted Date Diagnosed Date Abdominal pain 10/09/2019 Change in bowel habits 10/09/2019 IBS (irritable bowel syndrome) 10/09/2019 Intestinal gas excretion 10/09/2019 Plantar fasciitis of right foot 10/15/2018 Social History Tobacco Use Types Packs/Day Years Used Date Smoking Tobacco: Never Smokeless Tobacco: Never Tobacco Cessation:Counseling Given: Not Answered Personal Safety Answer Date Recorded Getting School Help Needed Not on file 01/19 Comments No Sex and Gender Information Value Date Recorded Sex Assigned at Not on file Legal Sex Female 8:49 AM PROSTHODONTIST/EDUCATOR Gender Identity Not on file Sexual Orientation Not on file Last Filed Vital Signs Vital Sign Reading Time Taken Comments Blood Pressure 132/90 01/27/2023 3:57 PM PROSTHODONTIST/EDUCATOR Pulse 86 01/27/2023 3:57 PM PROSTHODONTIST/EDUCATOR Temperature 36.9 ??C (98.4 ??F) 01/27/2023 3:57 PM CS T Respiratory Rate 18 01/27/2023 3:57 PM PROSTHODONTIST/EDUCATOR Oxygen Saturation 98% 01/27/2023 3:57 PM PROSTHODONTIST/EDUCATOR Inhaled Oxygen Concentration - - Weight 92.5 kg (204 lb) 01/27/2023 3:57 PM PROSTHODONTIST/EDUCATOR Height 154.9 cm (5' 1 ) 01/27/2023 3:57 PM PROSTHODONTIST/EDUCATOR Body Mass Index 38.55 01/27/2023 3:57 PM PROSTHODONTIST/EDUCATOR Plan of Treatment Not on file Insurance [facility] HMO/PPO Address: [address] [place] [address] [facility] CHOICE PLUS [facility] HMO/PPO Address: [address] [place] [address] Care Teams Systems Development Consultant Relationship Specialty Start Date End Date Azael Howard DO PCP - General Internal Medicine 04/13/19
--- OUTSIDE RECORDS SUMMARY | 2024-03-06 16:08 | XMS_ITS | Referral Summary ---
Author Organization [facility] Address [address] [place] [address] Care Team Providers Care Manager Investigations Name Role Phone Azael Howard DO Primary Care Provider [phone] Source Comments [facility],non-owned Affiliates and Associated Physician Practices is amultiple site organization consisting of ambulatory clinics and hospital sitesin [place], [place], [place] and [place]. This disclosure is being madepursuant to the Care Everywhere program and may not contain all information available regarding this patient. Last updated 17.[facility] Allergies Active Allergy Reactions Criticality Noted Date [...] 06/16/2017 2:26 PM CDT Plan of Treatment Not on file Care Teams Manager Investigations Relationship Specialty Start Date End Date Azael Howard DO PCP - General Internal Medicine 09/05/13
--- OUTSIDE RECORDS SUMMARY | 2024-03-06 16:08 | XMS_ITS | Data Portability ---
Author Organization [facility] Address [address] [place] [address] Assessment Encounter Date Assessment Date Assessment LastModified by Organization Details LastModified Time 07/17/2019 07/17/2019 Annual gynecological exam performed. Patient will come back in a year unless there are new symptoms. [email or web address] Not available 07/17/2019 11:56:43 Plan of Treatment Reminders Order Date Submit Date Provider Last Modified By Organization Details Last Modified Time Details Appointments None recorded. Lab None recorded. Referral None recorded. Procedures None recorded. Surgeries None recorded. Imaging MAMMO, screening, digital, bilateral 2019 020 [facility], [address] [place] [address] [address], [place], [address], 1 05:06:03 Medication Orders None recorded. Patient TargetsNo targets recorded. Patient Instructions Encounter Date Encounter Id Patient Instructions Last Modified By Organization Details Last Modified Time 07/17/2019 [id number] [email or web address] Not available 12:18:11 Reason for Referral None Reported. Results Created Date Observation Date Name Description Value Unit Range Abnormal Flag Note LastModifiedBy Organization Detail LastModifiedTime 07/17/1907/19/2019 pap, LB Pap test thin prep Negati ve for Intrae pithel ial Lesion or Malign arnol normal ACCES DINA #: [id number] Sourc e: Cervi paige/E ndoce rvica l LMP: 06/07 Date Taken : 07/16 Speci men Type: ThinP rep Vial Date Repor bienvenido: 2019 Clini paige Data: Cytot ech: Tracy Crump , CT (ASCP ) Date Repor bienvenido: 2019 Speci men Adequ acy: Satis facto ry for evalu ation No endoc ervic al/tr ansfo rmati on zone compo nent prese nt Gener al Categ oriza tion: NEGAT MARISSA FOR INTRA EPITH ELIAL BRISSA N OR MALIG KASIA This speci men has been jaime zed by the ThinP rep Imagi ng Syste m, an inter activ e compu ter syste m which bo ts the lab in the scree concepción of ThinP rep Pap Test slide s. Follo wing imagi ng, the slide was revie wed by a Cytot echno logis t and/o r Patho logis t. D N A A S S A Y S R E P O R T TEST NAME RESUL TS ----- ---- ----- -- HPV High Risk Vinny rashid (TMA) ThinP rep Vial The human papil lomav irus (HPV) High Risk Vinny rashid is an FDA-a pprov ed in-vi tro ampli fied nucle ic acid test for the quali tativ e detec tion of E6/E7 viral mRNA. Resul ts shoul d be corre lated with patie nt prese ntati on, histo ry, cervi paige cytol ogy and other clini paige and labor atory findi ngs. See https ://[employer]/s ites/ defau lt/fi les/2 018-0 3/AW- 01797 _002_ 01.pd f for furth er infor matio n. Test perfo rmed by [facility] d/b/a [facility], [address], [place] [address] , Clyde Saenz ra, DO, Labor atory Direc tor. HPV High Risk *HPV NOT DETEC BIENVENIDO (TYPE S 16, 18, 31, 33, 35, 39, 45, 51, 52, 56, 58, 59, 66, 68) *HPV: The human papil lomav irus (HPV) High Risk Vinny rashid is an FDA-a pprov ed in-vi tro ampli fied nucle ic acid test for the quali tativ e detec tion of E6/E7 viral mRNA. [facility] parker pradhan be corre lated with patimelissa nt prese ntati on, histo ry, cervi paige cytol ogy and other clini paige and labor atory findi ngs. See https ://[employer]/s ites/ defau lt/fi les/2 018-0 3/AW- 05635 _002_ 01.pd f for deondre er infor sarah n. Test perfo rmed by [facility], [facility], [address], [place] [address] , Clyde Saenz ra, DO, Labor atory Direc tor. End of t Techn ical servi minh provi ded by [facility] [place], [facility], [address] [place] [address] Murali Parsons MD, Labor ator[facility] Dire tor. Case revie wed and diagn osis rende red at [facility], d/b/a [facility], [address] [place] [address] Murali Parsons MD, Labor atorNanoVelos Dire tor. CONFI DENTI AL Not Available [facility] ([facility]) [address], [place], [address], 07/19/2019 12:08:58 07/17/19 20 07/18/2019 HPV DNA, high- risk HPV high risk NOT DETECT ED normal Not Available [facility]) [address], [place], [address], 07/19/2019 12:08:59 08/16/19 20 08/15/2019 MAMMO , diagn ostic , digit al, bilat eral No observ ation record ed. [address], [place], [address], 12/14/2019 11:12:30 Result Notes None recorded. Problems Name Problem SNOMED Code Status Onset Date Resolution Date Notes Provider Name and Address Organization Details Recorded Time Menopause present 344042058 Active 2015 Symptoms such as flushing, sleeplessn ess, headache, lack of concentrat ion, associated with natural (age-relat ed) menopause; Recorded Elsewhere: No Locatio n: [facility] rce: EHR Chroni c: N Practice ID: 0001 Billa ble Time: 11:15:00 AM Not Available [facility] 0 21:48:18 Acute vaginitis 18002971 Active 2019 Vaginitis; Recorded Elsewhere: No Locatio n: [facility] rce: EHR Chroni c: N Practice ID: 0001 Billa ble Time: 10:45:00 AM Not Available [facility] 0 21:48:[address] Concept Active 2015 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) (routine) w/o abn findings;R ecorded Elsewhere: No Locatio n: [facility] rce: EHR Chroni c: N Practice ID: 0001 Billa ble Time: 11:15:00 AM Not Available [facility] 0 21:48:[address] Concept Active 2015 Encntr for general adult medical exam w/o abnormal findings;R ecorded Elsewhere: No Locatio n: [facility] rce: EHR Chroni c: N Practice ID: 0001 Billa ble Time: 11:15:00 AM Not Available [facility] 0 21:48:18 Breast lump 35182244 Active 2016 Lump in breast;Rec orded Elsewhere: No Locatio n: [facility] rce: EHR Chroni c: N Practice ID: 0001 Billa ble Time: 09:45:00 AM Not Available [facility] 0 21:48:18 Specializ ed medical examinati on Active 2014 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 N;Recorded Elsewhere: No Locatio n: [facility] rce: EHR Chroni c: N Practice ID: 0001 Billa ble Time: 01:30:00 PM Not Available [facility] 0 21:48:18 Vaginolab ial hernia Active 2017 Other specified noninflamm atory disorders of vagina;Rec orded Elsewhere: No Locatio n: [facility] rce: EHR Chroni c: N Practice ID: 0001 Billa ble Time: 11:00:00 AM Not Available [facility] 0 21:48:18 Screening for malignant neoplasm of cervix Active 2014 Screening for malignant neoplasms of the cervix;Rec orded Elsewhere: No Locatio n: [facility] rce: EHR Chroni c: N Practice ID: 0001 Billa ble Time: 01:30:00 PM Not Available [facility] 0 21:48:18 Screening procedure Active 2013 Special screening for malignant neoplasms, vagina;Rec orded Elsewhere: No Locatio n: [facility] rce: EHR Chroni c: N Practice ID: 0001 Billa ble Time: 12:30:00 PM Not Available [facility] 0 21:48:19 Acute vulvitis 12513143 Active 2016 Vulvitis;R ecorded Elsewhere: No Locatio n: [facility] rce: EHR Chroni c: N Practice ID: 0001 Billa ble Time: 01:00:00 PM Not Available [facility] 0 21:48:19 Finding of trunk structure 855348663 Active 2013 Abdominal or pelvic swelling, mass, or lump, generalize d;Recorded Elsewhere: No Locatio n: [facility] rce: EHR Chroni c: N Practice ID: 0001 Billa ble Time: 10:00:00 AM Not Available [facility] 0 21:48:19 Adult health examinati on Active 2014 ROUTINE MEDICAL EXAM;Recor ded Elsewhere: No Locatio n: [facility] rce: EHR Chroni c: N Practice ID: 0001 Billa ble Time: 01:30:00 PM Not Available [facility] 0 21:48:19 Microscop ic hematuria 898053226 Active 2013 MICROSCOPI C HEMATURIA; Recorded Elsewhere: No Locatio n: [facility] rce: EHR Chroni c: N Practice ID: 0001 Billa ble Time: 12:30:00 PM Not Available [facility] 0 21:48:19 Abnormal cervical Papanicol aou smear 979139999 Active 2013 Other abnormal papanicola ou smear of cervix and cervical HPV;Record ed Elsewhere: No Locatio n: [facility] rce: EHR Chroni c: N Practice ID: 0001 Billa ble Time: 12:30:00 PM Not Available [facility] 0 21:48:19 Problem Notes None recorded. Procedures Surgical History Date Name Laterality Status Provider Name and Address Organization Details Recorded Time Partial Hysterectomy completed [facility] 07/17/2019 11:56:01 Cholecystectomy completed [facility] 07/17/2019 11:56:07 Imaging Results Imaging Date Name Status LastModified by Organiz ation Details LastModified Time 08/15/2019 MAMMO, diagnostic, digital, bilateral completed [facility] [address] [place] [address], [id number], 12/14/2019 11:12:30 Procedure Notes None recorded. Medical Equipment None Reported. Allergies Allergen ID Allergen Name Allergen Category Reaction Reaction Severity Criticality Documentation Date Start Date Code Code System Note Provider Name and Address Organization Details Recorded Time 921 ciproflox acin medicatio n Not available Not available Not available 07/17/2019 2551 RxNorm Vero [facility] 0 11:54:39 922 Product containin g penicilli n and antibioti c (product) medicatio n Not available Not available Not available 07/17/2019 12762 05 SNOMED Vero Osorio [facility] 0 11:54:43 Medications Name Sig Start Date Stop Date Status Note LastModified by Organization Details LastModified Time amitripty line 75 mg tablet take 1 tablet by oral route every day at bedtime 2014 active Prescrib ed Elsewher e: Yes Loca tion: Mirna torres [facility] odify By: [email or web address] trick En counter DateTime : 08/31/19 15 01:30:00 PM Not Available Not Available Not Available Diflucan 150 mg tablet take 1 tablet by oral route once 08/15 completed Prescrib ed Elsewher e: No Locat ion: Mirna torres [facility] odify By: sherron Torres ncounter DateTime : 05/11/19 18 11:00:00 AM Not Available Not Available Not Available meloxicam 7.5 mg tablet take 1 tablet by oral route every day 2016 active Prescrib ed Elsewher e: Yes Loca tion: Mirna torres [facility] odify By: amcandace Torres ncounter DateTime : 09/22/19 17 09:45:00 AM Not Available Not Available Not Available betametha sone valerate 0.1 % topical cream apply by topical route every day a thin layer to the affected area(s) 05/10 completed Prescrib ed Elsewher e: No Locat ion: Mirna torres [facility] odify By: steven chowdary DateTime : 01/29/20 17 01:00:00 PM Not Available Not Available Not Available Terazol 7 0.4 % vaginal cream insert 1 applicat orful by vaginal route every day for 7 days at bedtime 03/02 completed Prescrib ed Elsewher e: No Locat ion: Mirna torres [facility] odify By: toni Torres ncounter DateTime : 02/24/19 18 10:10:22 AM Not Available Not Available Not Available meloxicam 07/16 completed Not Available Not Available Not Available ibuprofen active Not Available Not Abril ilable Not Available amitripty line active Not Available Not Available Not Available Vitals Date Recorded Body height Body mass index (BMI) Body weight Systolic blood pressure Diastolic blood pressure Provider Name and Address Organization Details Last Updated DateTime 07/17/2019 1859.28 cm 0.3 kg/m2 13300.51 g 117 mm[Hg] 79 mm[Hg] Vero Osorio [facility] 0 12:02:07 Social History None recorded. Functional Status None recorded. Mental Status None recorded. Family History Relationship Description Onset Age of this Age Resolved Age Notes LastModified by Organization Details LastModified Time Mother Asthma [email or web address] Not available 11:55:08 Mother Diabetes mellitus [email or web address] Not available 2019 11:55:19 Sister Asthma [email or web address] Not available 11:55:08 Sister Disorder of thyroid gland [email or web address] Not available 2019 11:55:28 Maternal Grandmother Carcinoma in situ of breast [email or web address] Not available 2019 11:55:41 Maternal Grandmother Malignant tumor of lung [email or web address] Not available 2019 11:55:49 Notes:Maternal grandmother: Cancer, lung, Cancer, breast Mother: Diabetes mellitus, Asthma Sister: Asthma, Thyroid disease Medical History No medical history recorded. Gynecological HistoryNo gynecological history recorded. Obstetrics History GPAL:G 0 P 0 0 0 0 Past Encounters Encounter ID Performer Location Encounter Start Date Encounter Closed Date Diagnosis/Indication Diagnosis SNOMED-CT Code Diagnosis ICD10 Code Diagnosis Note [id number] Kimber Rangel , [facility] [address] [address] 07/17/2019 11:52:14 07/17/2019 13:24:16 Gynecologic examination 07236015 Z12.39 Suggested Calcium with Vitamin D 1200-1500m g daily. Patient advised to get an annual flu shot in the fall and she could obtain at [facility] or [facility] clinic. Also to obtain TDap vaccinatio n if you have not had one in the last 10 years. Recommend yearly mammograms . Encouraged monthly self breast exams. Encourage safe sexual practices, to use condoms and limit partners if not already in a monogamous relationsh ip. Engage in daily exercise of low impact aerobic exercise 45-60 minutes 4-5 times weekly. Avoid tobacco and illicit drugs as well as using moderation with alcohol intake less than 1-2 8 oz beverages daily. This lifestyle behavior pattern will lead to less health conditions and longer life span. If BMI greater than 25 weight watchers or dietary consult advised. All questions have been answered. Patient appears to understand informatio n, but if you have any questions please call or respond to this email. Partial Hyst for cervical cancer last pap 2016 wnl She would like to update pap/hpv cuff this year. Mammo order given Health Concerns Section Related Observation LastModified by Organization Detai ls LastModified Time None Recorded Concern Status LastModified by Organization Details LastModified Time None Recorded Advance Directives Directive None Recorded Payers Encounter Date Sequence Insurance Name Policy Number Policy Madden Covered Member ID Madden Member ID Guarantor Name 07/17/2019 1 [facility] [id number] Jin Man [id number] Notes Date Note Type Note Provider Name and Address Organization Details Recorded Time 07/17/2019 text/html Annual GYNReport ed bypatient.History: no gynecologic complaints Menstrual cycle:Normal menses Urinary symptoms:No hematuria; No incontinence Vulva:No genital lesion Vagina:Normal vaginal discharge Breast:No breast pain; No breast lump; No nipple discharge Current Contraception:Hyst erectomy partial for cervical cancer Sexual complaints:No sexual complaints; No pain during intercourse; Normal libido Menopausal Symptoms:No menopausal symptoms; Normal vaginal lubrication Psychological symptoms:No depression; No anxiety; No PMDD Preventive measures:Encourage self breast examination; Encourage regular exercise; Encourage no tobacco use; Encourage regular mammograms starting age 40; History of abnormal pap smear/cervical dysplasia; Needs to schedule mammogram Kimber Rangel [facility]- [address], [place], [address], [facility] 07/17/2019 12:20:48 OBGyn Episode Ob Episode Information Episode Created Date Number of Fetuses Patient Bloodtype Patient rh Status Prepregnancy Weight lbs Domestic Partner Domestic Partner Phone Father Name Dietetics Professor Status 07/17/19 20 1 CLOSED Fetus Data First Name Last Name Admitted to NICU Weight (g) Sex Living Outcome Pediatric Complications Fetus ID Race Codes Race Delivery Type 2104 Ferdinand Calculation Initial Ferdinand Date Initial Exam Date Initial Exam Provider Initial Ultrasound Date Last Menstrual Period Date Ultra Sound Weeks Gestation 0 Eighteen To Twenty Week Ferdinand Update Ultra Sound Date Fundal Height At Umbil Quickening Date Ultra Sound Latest Weeks Gestation Final Ferdinand Confirmed By Final Ferdinand Confirmed Date Final Ferdinand Date Ultra Sound Latest Days Gestation 0 0 Menstrual History Last Menstrual Date Menses Monthly On Bcp Conception Prior Menses Frequency Hcg Plus Date Menarche Onset Age Delivery Information Delivery Date Delivery Type Labor Anesthesia Weeks Gestation Incision Type Labor Labor Length Hrs Delivered By Post Complications Tubal Sterilization Discharge Date Comments 0 Discharge Information Feeding Method Contraceptive Method Maternal HG B and HCT Levels Ob Episode Information Episode Created Date Number of Fetuses Patient Bloodtype Patient rh Status Prepregnancy Weight lbs Domestic Partner Domestic Partner Phone Father Name Dietetics Professor Status 07/17/19 20 1 CLOSED Fetus Data First Name Last Name Admitted to NICU Weight (g) Sex Living Outcome Pediatric Complications Fetus ID Race Codes Race Delivery Type 2105 Ferdinand Calculation Initial Ferdinand Date Initial Exam Date Initial Exam Provider Initial Ultrasound Date Last Menstrual Period Date Ultra Sound Weeks Gestation 0 Eighteen To Twenty Week Ferdinand Update Ultra Sound Date Fundal Height At Umbil Quickening Date Ultra Sound Latest Weeks Gestation Final Ferdinand Confirmed By Final Ferdinand Confirmed Date Final Ferdinand Date Ultra Sound Latest Days Gestation 0 0 Menstrual History Last Menstrual Date Menses Monthly On Bcp Conception Prior Menses Frequency Hcg Plus Date Menarche Onset Age Delivery Information Delivery Date Delivery Type Labor Anesthesia Weeks Gestation Incision Type Labor Labor Length Hrs Delivered By Post Complications Tubal Sterilization Discharge Date Comments 3 Discharge Information Feeding Method Contraceptive Method Maternal HG B and HCT Levels
--- OUTSIDE RECORDS SUMMARY | 2024-03-06 16:08 | XMS_ITS | Clinical Summary ---
Author Organization [facility] Address [address] [place] [address]. [place], [place] [address] [place] [address] Care Team Providers Care Building Services Technician Name Role Phone Unavailable Primary Care Provider Unavailabl e Social History Tobacco Use Types Packs/Day Years Used Date Smoking Tobacco: Never Assessed Comments Unknown Sex and Gender Information Value Date Recorded Sex Assigned at Not on file Legal Sex Female 5:47 PM CDT Gender Identity Not on file Sexual Orientation Not on file Plan of Treatment Health Maintenance Due Date Last Done Comments Cervical Cancer Screening Pa p Smear (Age 30 to 64) Every 3 Years 1979 Annual Physical 08/11/1982 Hepatitis C 08/11/1997 DTaP, Tdap and Td Vaccines ( 1 - Tdap) 08/11/1998 Hepatitis B Vaccines (1 of 3 - 19+ 3-dose series) 08/11/1998 Cervical Cancer Screening Pa p with HPV Testing (Age 30 to 64) Every 5 Years 08/11/2009 Cervical Cancer Screening with HPV 08/11/2009 Mammogram Screening 2019 COVID-19 Vaccine ( - 2023-2 5 season) 2023 Influenza Adult (#1) 2023 HPV Vaccines Aged Out No longer eligi ble based on patient's age to complete this topic Meningococcal B Vaccine Aged Out No l onger eligible based on patient's age to complete this topic Meningococcal Vaccine Aged Out No sophia ayan eligible based on patient's age to complete this topic Pneumococcal Vaccine: Pediat rics (0 to 5 Years) and At-Risk Patients (6 to 64 Years) Aged Out No longer eligible b ased on patient's age to complete this topic RSV Immunizations Under 20 Months Aged Out No longer eligible based on patient's age to complete this topic
--- OUTSIDE RECORDS SUMMARY | 2024-03-06 16:08 | XMS_ITS | Clinical Summary ---
Author Organization [facility] Address [address] [place] [address] Care Team Providers Care Sales Clerk Name Role Phone Azael Howard DO Primary Care Provider [phone] Allergies Active Allergy Reactions Criticality Noted Date [...] 10/09/2019 Plantar fasciitis of right foot 10/15/2018 Surgical History Surgery Date Site/Laterality Comments CHOLECYSTECTOMY HYSTERECTOMY Partial ACHILLES TENDON REPAIR Medical History Medical History Date Comments Abdominal bloating Arthritis Family History Medical History Relation Name Comments Breast cancer Father's Brother Heart disease Maternal Grandfather Arthritis Mother COPD Mother Heart disease Mother Colon cancer Paternal Grandmother Asthma Sister Relation Name Status Comments Father's Brother Maternal Grandfather Mother Paternal Grandmother Sister Social History Tobacco Use Types Packs/Day Years Used Date Smoking Tobacco: Never Smokeless Tobacco: Never Tobacco Cessation:Counseling Given: Not Answered Personal Safety Answer Date Recorded Getting School Help Needed Not on file 01/19 Comments No Sex and Gender Information Value Date Recorded Sex Assigned at Not on file Legal Sex Female 8:49 AM LEGAL WORD PROCESSOR Gender Identity Not on file Sexual Orientation Not on file Obstetrics History Last Filed Vital Signs Vital Sign Reading Time Taken Comments Blood Pressure 132/90 01/27/2023 3:57 PM LEGAL WORD PROCESSOR Pulse 86 01/27/2023 3:57 PM LEGAL WORD PROCESSOR Temperature 36.9 ??C (98.4 ??F) 01/27/2023 3:57 PM CS T Respiratory Rate 18 01/27/2023 3:57 PM LEGAL WORD PROCESSOR Oxygen Saturation 98% 01/27/2023 3:57 PM LEGAL WORD PROCESSOR Inhaled Oxygen Concentration - - Weight 92.5 kg (204 lb) 01/27/2023 3:57 PM LEGAL WORD PROCESSOR Height 154.9 cm (5' 1 ) 01/27/2023 3:57 PM LEGAL WORD PROCESSOR Body Mass Index 38.55 01/27/2023 3:57 PM LEGAL WORD PROCESSOR Plan of Treatment Health Maintenance Due Date Last Done Comments Breast Cancer Screening-Mammogram 1979 Depression Screening 1979 Hepatitis C Screening 1979 DTaP/Tdap/Td Vaccine (1 - Tdap) 08/11/1990 Varicella Vaccines (1 of 2 - 13+ 2-dose series) 08/11/1992 Hepatitis B Screening 08/11/1997 Regular Well Visit/Exam 18-64 08/11/1997 Influenza Vaccine (#1) 2023 HPV Vaccines Aged Out No longer eligi ble based on patient's age to complete this topic Pneumococcal vaccine <65 Aged Out No longer eligible based on patient's age to complete this topic Insurance [facility] Address: [place] [address] [facility] Address: [facility] [address] [place] [address] Care Teams Sales Clerk Relationship Specialty Start Date End Date Azael Howard DO PCP - General Internal Medicine 04/13/19
--- OUTSIDE RECORDS SUMMARY | 2024-03-06 16:08 | XMS_ITS | Clinical Summary ---
Author Organization [facility] Address [address] [place] [address] Phone Care Team Providers Care Contracts Paralegal Name Role Phone Azael Howard DO Primary Care Provider Allergies Active Allergy Reactions Criticality Noted Date Comments Ciprofloxacin Unknown Penicillins Unknown Medications amitriptyline (ELAVIL) 25 MG TabletIndicatio ns:1 tab by mouth every evening Indications: 1 tab by mouth every evening Active dicyclomine (BENTYL) 20 MG Tablet Take 1 Tablet by mouth every 6 hours. 30 Tablet 1 Active Additional Information Patient not taking.Reported on 11/28/2020 traMADol (ULTRAM) 50 MG Tablet Take 1-2 Tablets by mouth every 6 hours as needed for Moderate or more severe pain. 20 Tablet 1 Active Additional Information Patient not taking.Reported on 11/28/2020 ibuprofen (MOTRIN) 800 MG Tablet ibuprofen 800 mg tablet TK 1 T PO TID PRN P - DISCONTINUE ALL OTHER NSAIDS WHILE TAKING THIS 0 Active methylPREDNISol one (Medrol) 4 MG Tablet Therapy PackIndications :Acute non-recurrent frontal sinusitis Use as per instructions on package. 21 Tablet 1 Active cetirizine (ZyrTEC) 10 MG TabletIndicatio ns:Acute non-recurrent frontal sinusitis Take 1 Tablet by mouth daily. 90 Tablet 3 1 Active fluticasone (FLONASE) 50 MCG/ACT SuspensionIndic ations:Acute non-recurrent frontal sinusitis 1-2 Sprays by Nasal route daily. Use in each nostril as directed. 15.8 mL 1 1 Active albuterol 108 (90 Base) MCG/ACT Aerosol Solution take 2 Puffs by inhalation every 6 hours as needed for Cough. 18 g 2 Active Active Problems Problem Noted Date Diagnosed Date IBS (irritable bowel syndrome) Abdominal pain Intestinal gas Change in bowel habits Family History Medical History Relation Name Comments Breast Cancer Maternal Grandmother Relation Name Status Comments Maternal Grandmother Social History Tobacco Use Types Packs/Day Years Used Date Smoking Tobacco: Never Smokeless Tobacco: Never Alcohol Use Standard Drinks/Week Comments Not Currently 0 (1 standard drink = 0.6 oz pur e alcohol) Sexually Active Control Partners Comments Yes Male Comments No Sex and Gender Information Value Date Recorded Sex Assigned at Not on file Legal Sex Female 9:01 PM CDT Gender Identity Not on file Sexual Orientation Not on file Last Filed Vital Signs Vital Sign Reading Time Taken Comments Blood Pressure 133/76 05/03/2021 10:02 AM CDT Pulse 100 05/03/2021 10:02 AM CDT Temperature 36.3 ??C (97.3 ??F) 05/03/2021 8:04 AM CD T Respiratory Rate 20 05/03/2021 10:02 AM CDT Oxygen Saturation 95% 05/03/2021 10:02 AM CDT Inhaled Oxygen Concentration - - Weight 90.7 kg (200 lb) 05/03/2021 8:04 AM CDT Height 154.9 cm (5' 1 ) 05/03/2021 8:04 AM CDT Body Mass Index 37.79 05/03/2021 8:04 AM CDT Plan of Treatment Health Maintenance Due Date Last Done Comments Hepatitis C Virus (HCV) Screening 1979 TdaP Immunization 1979 Hepatitis B Immunization (1 of 3 - 19+ 3-dose series) 08/11/1998 Influenza Immunization (#1) 2023 SARS-COV-2 Immunization ( - 2023- season) 2023 Respiratory Syncytial Virus (RSV) Immunization (Adult) (1 - 1-dose 75+ series) 08/11/2054 Discussion re Starting/Frequ ency of Mammograms Completed 09/30/2016 Meningococcal Immunization (ACWY) Aged Out No longer eligible based on patient's age to complete this topic Pneumococcal Immunization Combined Aged Out No longer eligible based on patient's age to complete this topic Rotavirus Immunization Aged Out No lo nger eligible based on patient's age to complete this topic Procedures Procedure Name Priority Date/Time Associated Diagnosis Comments HEIKE DIAG BILATERAL DIGITAL W CAD Routine 09/30/2016 3:20 PM CDT Lump or mass in breast from Last 3 Months or Most Recently Relevant to Health Maintenance Results * HEIKE DIAG BILATERAL DIGITAL W CAD (09/30/2016 3:20 PM CDT) Anatomical Region Laterality Modality breast Bilateral Mammography 09/30/2016 2:46 PM CDT Narrative 09/30/2016 4:58 PM CDT - HEIKE DIAG BILATERAL DIGITAL W CAD BILATERAL DIGITAL DIAGNOSTIC MAMMOGRAM WITH CAD WITH MEDIOLATERAL MEDIOLATERAL OBLIQUE CRANIOCAUDAL: 09/30/2016 The study was acquired using digital technology and interpreted from soft copy. ?? Current study was also evaluated with ICAD version 7.2. ?? CLINICAL: Diagnostic study new baseline. Patient presents with a left breast lower inner quadrant lump for the past 2 weeks. Patient also states having bilateral breast tenderness/soreness intermittently for the past year and has increased in frequency and severity over the past 4 months. No personal history of cancer. Maternal grandmother had breast cancer age 35. ?? COMPARISONS: No prior exams were available for comparison. ?? BREAST TISSUE:The tissue of both breasts is heterogeneously dense. This may lower the sensitivity of mammography. ?? FINDINGS: No significant masses, calcifications, or other findings are seen in either breast. ?? IMPRESSION: BI-RAD 0 ??ADDITIONAL IMAGING EVALUATION NEEDED There is no abnormality seen in the left breast to correspond with the palpable abnormality. ?? An ultrasound will also be performed and reported separately. The patient has been or will be contacted. ?? Simon Munoz M.D. ? bs/:09/30/2016 15:18:15 ?? Family Resource Specialist: Valentina Ceron (Suki), [facility] letter sent: Additional Imaging ?? Reading location: [facility] BI-RADS: 0 Additional Imaging Evaluation Needed Procedure Note Simon Munoz MD - 09/30/2016 - HEIKE DIAG BILATERAL DIGITAL W CAD BILATERAL DIGITAL DIAGNOSTIC MAMMOGRAM WITH CAD WITH MEDIOLATERAL MEDIOLATERAL OBLIQUE CRANIOCAUDAL: 09/30/2016 The study was acquired using digital technology and interpreted from soft copy. Current study was also evaluated with ICAD version 7.2. CLINICAL: Diagnostic study new baseline. Patient presents with a left breast lower inner quadrant lump for the past 2 weeks. Patient also states having bilateral breast tenderness/soreness intermittently for the past year and has increased in frequency and severity over the past 4 months. No personal history of cancer. Maternal grandmother had breast cancer age 35. COMPARISONS: No prior exams were available for comparison. BREAST TISSUE:The tissue of both breasts is heterogeneously dense. This may lower the sensitivity of mammography. FINDINGS: No significant masses, calcifications, or other findings are seen in either breast. IMPRESSION: BI-RAD 0 ADDITIONAL IMAGING EVALUATION NEEDED There is no abnormality seen in the left breast to correspond with the palpable abnormality. An ultrasound will also be performed and reported separately. The patient has been or will be contacted. Simon Munoz M.D. bs/:09/30/2016 15:18:15 Family Resource Specialist: Valentina Ceron (R), [facility] letter sent: Additional Imaging Reading location: [facility] BI-RADS: 0 Additional Imaging Evaluation Needed us Bethany Rachel MD IMG MAMMO ORDERABLES Final Re sult from Last 3 Months or Most Recently Relevant to Health Maintenance Care Teams Contracts Paralegal Relationship Specialty Start Date End Date Azael Howard DO [facility] [address] [place] [address] PCP - General Internal Medicine 12/31/15
[2024-03-06 16:14] VITALS: BP 139/78; PULSE 85; RESP 18; TEMP 36.9; O2SAT 99
--- NOTE | 2024-03-06 17:19 | ED_ITS ---
HPI - General Adult General Chief complaint: Extremity Injury, Lower Stated complaint: Left Ankle/Leg Pain Source: patient Mode of arrival: ambulatory Limitations: no limitations History of Present Illness HPI narrative: Patient presents for evaluation of pain in left lower extremity. Symptom onset 1829 last night. Pain was initially in the left knee. 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 Pain lasted until about 2230 last night at which time she got home from work. She denies any identified precipitating injury. It feels like her knee is ?twisting and grinding?. She rates her pain last night as 7/10 severity. She did not take any medication for symptoms. 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 She describes the pain as ?mushing and her left foot as being wet . She has associated numbness without tingling. She has an underlying history of fibromyalgia, restless legs and anxiety for which she takes Wellbutrin, Cymbalta, and xanax. Related Data Allergies Allergy/AdvReac Type Severity Reaction Status Date / Time ciprofloxacin AdvReac Unknown Nausea and Verified 03/06/24 16:10 Vomiting SOB Penicillins AdvReac Unknown Nausea and Verified 03/06/24 16:10 Vomiting SOB Review of Systems Review of Systems: CONSTITUTIONAL: Denies fever, chills, or sweats. EYES: Denies visual changes, redness, or discharge. ENT: Denies rhinorrhea, congestion, sore throat, or otalgia. CARDIOVASCULAR: Denies chest pain, palpitations, or edema. RESPIRATORY: Denies cough or dyspnea. GASTROINTESTINAL: Denies abdominal pain, nausea, vomiting, or diarrhea. GENITOURINARY: Denies dysuria or hematuria. SKIN: Denies rash or itching. MUSCULOSKELETAL: Reports pain in the left knee. Reports pain left foot which radiates up the anterior aspect of the left lower leg into the lateral aspect of the left hip NEUROLOGIC: Reports numbness in the left foot. Denies headache, dizziness, or weakness. PSYCHIATRIC: Denies anxiety or depression. [facility] Past Medical History Medical History IBS (irritable bowel syndrome) Wears glasses Weight gain Achilles tendinitis, left leg Surgical History Surgical History History of cholecystectomy H/O: hysterectomy History of foot surgery left Family History Family History Mother Diabetes mellitus COPD (chronic obstructive pulmonary disease) Emphysema lung Heart problem Arthritis Kidney disorder Grandparent Breast cancer Other Depression Heart disease High cholesterol Lung cancer Neuropathy Social History Social History Social History: caffeine-soda 12 oz daily Smoking status: Never smoker Alcohol intake: current Alcohol use details: rarely Substance use: never Substance use type: does not use Lack of Transportation: No Lack of Food: Never True Current Housing: I Have Housing Concerned About Future Housing: No Difficulty Paying Gas/Electric Bills: No Difficulty Paying for Meds: No Currently Unemployed: No Education: High School Diploma/GED Difficulty w/ Childcare or Family Care: No Gender identity (if verbalized by the patient): Female Exam Narrative: GENERAL: Well-appearing, well-nourished, and in no acute distress. HEAD: Normocephalic, atraumatic. EYES: PERRLA and EOMI. ENT: Nares clear, no rhinorrhea or epistaxis. Mucous membranes moist. Oropharynx without tonsillar hypertrophy exudate or other lesions. Bilateral TMs pearly mauricio nonbulging NECK: Supple. No adenopathy or masses. No carotid bruits or JVD CHEST: Clear to auscultation. No respiratory distress. No wheezes rales or rhonchi HEART: Regular rate and rhythm. No murmur heard. Normal peripheral pulses. ABDOMEN: Soft, nontender, nondistended, normal active bowel sounds. EXTREMITIES: There is mild tenderness in the plantar aspect of the arch of the left foot. There is tenderness in left knee. Positive crepitus in anterior aspect of the left knee without obvious deformity. Full ROM of left knee intact. There is tenderness in anterior aspect of left lower leg SKIN: Warm, dry, no rash. NEURO: No focal deficits. Alert and oriented x3. PSYCH: Normal mood and affect. Course Course Emergency Course: This is a 43-year-old female who presented for evaluation of left lower extre mity pain. She has evidence of osteoarthritis on x ray. Foot pain is consistent with plantar fasciitis. She states she does have a history of this. 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 She was instructed to ensure she has good arch supports in her footwear. Increase hydration. Vlvc-vit-tgkaocv agents for symptom management. Follow up with primary provider. Go to the ER for worsening symptoms. Patient in agreement with plan of care. Level of Care: Express Care Visit Vital Signs Vital signs: Vital Signs Temperature 36.9 C 03/06/24 16:14 Pulse Rate 85 03/06/24 16:14 Respiratory Rate 18 03/06/24 16:14 Blood Pressure 139/78 03/06/24 16:14 Pulse Oximetry 99 03/06/24 16:14 Oxygen Delivery Room Air 03/06/24 16:14 Temperature 36.9 C 03/06/24 16:14 Pulse Rate 85 03/06/24 16:14 Respiratory Rate 18 03/06/24 16:14 Blood Pressure 139/78 03/06/24 16:14 Pulse Oximetry 99 03/06/24 16:14 Oxygen Delivery Room Air 03/06/24 16:14 Medical Decision Making Vital Signs Vital Signs: Vital Signs Temperature 36.9 C 03/06/24 16:14 Pulse Rate 85 03/06/24 16:14 Respiratory Rate 18 03/06/24 16:14 Blood Pressure 139/78 03/06/24 16:14 Pulse Oximetry 99 03/06/24 16:14 Oxygen Delivery Room Air 03/06/24 16:14 Temperature 36.9 C 03/06/24 16:14 Pulse Rate 85 03/06/24 16:14 Respiratory Rate 18 03/06/24 16:14 Blood Pressure 139/78 03/06/24 16:14 Pulse Oximetry 99 03/06/24 16:14 Oxygen Delivery Room Air 03/06/24 16:14 Imaging Data Radiologist's impression: EXAMINATION: XR knee LT 3V DATE: 03/06/2024 17:26 INDICATION: Left knee pain. TECHNIQUE: 3 views of left knee were obtained. COMPARISON: None. FINDINGS: Alignment is normal. No fracture. There is mild tricompartmental osteoarthritis. No knee joint effusion. IMPRESSION: 1. Mild left knee osteoarthritis. Discharge Plan Discharge Clinical Impression: Arthritis of left knee, Plantar fasciitis Patient Disposition: Home, Self-Care Condition: Stable Instructions: Antibiotic Form, Plantar Fasciitis (ED), Osteoarthritis (ED) Patient Language: Guamanian Prescriptions: New methylprednisolone [Medrol (Silvestre)] 4 mg tablets,dose pack See Rx Instructions .ROUTE .COMPLEX Qty: 21 0RF Rx Instructions: for 6 days No Action bupropion HCl [Wellbutrin XL] 300 mg tablet extended release 24 hr 300 mg PO QAM Qty: 90 1RF duloxetine [Cymbalta] 60 mg capsule,delayed release(DR/EC) 60 mg PO DAILY Qty: 90 1RF alprazolam [Xanax] 0.5 mg tablet 0.5 mg PO BID PRN (Reason: anxiety) Qty: 30 2RF Follow-up/Referrals: Azael Howard DO [Primary Care Provider] - Time of Disposition: 17:55
[2024-03-06] MEDS: IBUPROFEN 400 MG TABLET 800 MG PO (17:30)
== END 2024-03-06 17:58 | disposition home or self-care (01) ==
PROVIDERS: Emergency Provider Nurse Practitioner; PCP Internal Medicine
DX: M17.12 Unilateral primary osteoarthritis, left knee (principal); M72.2 Plantar fascial fibromatosis; M79.7 Fibromyalgia; G25.81 Restless legs syndrome; F41.9 Anxiety disorder, unspecified
CPT/HCPCS: 73562; 99213; A9270; G0463

== ENCOUNTER 2024-03-29 09:35 | Outpatient (CLI) | payer OTHER, SELFPAY ==
--- NOTE | ~2024-03-29 | MM_ITS ---
EXAMINATION: MM screening sandra BI w grant HISTORY: Screening TECHNIQUE: Craniocaudal and mediolateral oblique 3-D tomosynthesis images were obtained and synthetic 2-D images were generated. CAD analysis was submitted and interpreted. COMPARISON: Comparison to multiple prior studies sequentially, with oldest reviewed study dated 09/2019. BREAST PARENCHYMAL COMPOSITION: Not dense: There are scattered areas of fibroglandular density. FINDINGS: There is a new small low-density mass in the lower central aspect of the right breast, midd le third. The left breast is stable without evidence for malignancy. IMPRESSION: 1. New low-density mass lower central right breast, middle third. 2. Additional mammographic views and possible breast ultrasound are recommended. BI-RADS Category 0: Incomplete: Needs additional imaging evaluation. Reviewed, dictated and finalized at location B. E BUILDER IMPRESSION: 1. New low-density mass lower central right breast, middle third. 2. Additional mammographic views and possible breast ultrasound are recommended . BI-RADS Category 0: Incomplete: Needs additional imaging evaluation.
--- OUTSIDE RECORDS SUMMARY | 2024-03-29 09:45 | XMS_ITS | Patient Health Record ---
Author Organization [facility] Address [address] [place] [address] Care Team Providers Care Pearl Cutter Name Role Phone EfremAzael dolan Primary Care Provider UnavailJuan Castro DPM Unavailable [phone] ALLERGIES Allergen (clinical drug ingredient) Drug/Non Drug [...] lower limb (G57.82) 05/23/19 24 Active confirmed [id number] Problem Metatarsalgia, left foot (M77.42) 05/23/19 24 Active confirmed [id number] VITAL SIGNS Blood pressure diastolic 77 mm Hg 05/23/2023 Height 61 in 05/23/2023 Blood pressure systolic 123 mm Hg 05/23/2023 Weight 198 lbs 05/23/2023 BMI 37.41 kg/m2 05/23/2023 Encounters Encounter Location Date Provider Diagnosis [facility] [address] [place] [address] 05/23/2023 Juan Fritz DPM Neuroma of third [...] Insured Coverage Start Date Coverage End Date [facility] [address] [address] [place] [address] [id number] Jin Man Self - patient is the insured MEDICAL (GENERAL) HISTORY Medical History History ICD Code depression irritable bowel syndrome neuropathy Surgical History Surgery Date(Month/Year) hysterectomy 07/2009 left achilles tendon repair 02/2017 gallbladder 2013
--- OUTSIDE RECORDS SUMMARY | 2024-03-29 09:45 | XMS_ITS | Referral Summary ---
Author Organization [facility] Address [address] [place] [address] Care Team Providers Care Incinerator Attendant Name Role Phone Azael Howard DO Primary Care Provider [phone] Source Comments [facility],non-owned Affiliates and Associated Physician Practices is amultiple site organization consisting of ambulatory clinics and hospital sitesin [place], [place] and [place]. This disclosure is being madepursuant to the Care Everywhere program and may not contain all information available regarding this patient. Last updated 17.[facility] Allergies Active Allergy Reactions Criticality Noted Date [...] 114 06/16/2017 2:26 PM CDT Temperature 37 C (98.6 F) 06/16/2017 2:26 PM CDT Respiratory Rate - - Oxygen Saturation 97% 06/16/2017 2:26 PM CDT Inhaled Oxygen Concentration - - Weight 88.5 kg (195 lb) 06/16/2017 2:26 PM CDT Height 154.9 cm (5' 1 ) 06/16/2017 2:26 PM CDT Body Mass Index 36.84 06/16/2017 2:26 PM CDT Plan of Treatment Not on file Care Teams Incinerator Attendant Relationship Specialty Start Date End Date Azael Howard DO PCP - General Internal Medicine 09/05/13
--- OUTSIDE RECORDS SUMMARY | 2024-03-29 09:45 | XMS_ITS | Clinical Summary ---
Author Organization [facility] Address [address] [place] [address] Care Team Providers Care Supervisor Histology Name Role Phone Unavailable Primary Care Provider [...] HPV 08/11/2009 Mammogram Screening 2019 COVID-19 Vaccine (2023-2 5 season) 2023 Influenza Adult (#1) 2023 [...]
--- OUTSIDE RECORDS SUMMARY | 2024-03-29 09:45 | XMS_ITS | Patient Health Summary ---
Author Organization [facility] Address [address] [place] [address] Care Team Providers Care Ecdis N Navigation Operator Name Role Phone Azael Howard DO Primary Care Provider [phone] Note from [facility],non-owned Affiliates and Associated Physician Practices is amultiple site organization consisting of ambulatory clinics and hospital sitesin [place], [place], [place] and [place]. This disclosure is being madepursuant to the Care Everywhere program and may not contain all information available regarding this patient. Last updated 17.[facility] Allergies * Ciprofloxacin(Rash) -Low Criticality * Penicillins(Rash) [...] Strep A Internal Control Present Lot # [id number] Expiration Date [id number] Throat ENTIRE THROAT (SURFACE REGION OF NECK) / Unknown 06/16/2017 Reyna Cevallos SHAREPOINT ADMINISTRATOR-PROBATION AND PATROL AGENT LAB - POINT O F CARE ORDERABLES * INFLUENZA A+B - POINT OF CARE (AMB) (06/16/2017) Influenza A Antigen Rapid Negative Negative Influenza B Antigen Rapid Negative Negative Influenza Internal Control neg/pos NEGATIVE - POSITIVE Influenza Lot Number [id number] Influenza Expiration Date Other NASOPHARYNGEAL SWAB / Unknown 06/16/2017 Reyna Cevallos SHAREPOINT ADMINISTRATOR-PROBATION AND PATROL AGENT LAB - POINT O F CARE ORDERABLES Care Teams Ecdis N Navigation Operator Relationship Specialty Start Date End Date Azael Howard DO PCP - General Internal Medicine 09/05/13
--- OUTSIDE RECORDS SUMMARY | 2024-03-29 09:45 | XMS_ITS ---
Author Organization [facility] Address [address], [place] [address] Care Team Providers Care Retouching Operator Name Role Phone Azael Howard Primary Care Provider UnavailJuan Castro DPM Unavailable [phone] ALLERGIES Allergen (clinical drug ingredient) Drug/Non Drug [...] lower limb (G57.82) 05/23/19 24 Active confirmed [id number] Problem Metatarsalgia, left foot (M77.42) 05/23/19 24 Active confirmed [id number] VITAL SIGNS Blood pressure systolic 123 mm Hg 05/23/19 24 Blood pressure diastolic 77 mm Hg 024 Height 61 in 05/23/2023 Weight 198 lbs 05/23/2023 BMI 37.41 kg/m2 05/23/2023 Encounters Encounter Location Date Provider Diagnosis [facility] [address] [place] [address] 05/23/2023 Juan Fritz DPM Neuroma of third [...]
--- OUTSIDE RECORDS SUMMARY | 2024-03-29 09:45 | XMS_ITS | Clinical Summary ---
Author Organization [facility] Address [address] [address] Care Team Providers Care Botanical Technical Officer Name Role Phone Azael Howard DO Primary Care Provider [phone] Source Comments [facility],non-owned Affiliates and Associated Physician Practices is amultiple site organization consisting of ambulatory clinics and hospital sitesin [place], [place], [place] and [place]. This disclosure is being madepursuant to the Care Everywhere program and may not contain all information available regarding this patient. Last updated 17.[facility] Allergies Active Allergy Reactions Criticality Noted Date [...] - 19+ 3-dose series) 08/11/1998 COVID-19 VACCINE ( - 2023-2 5 season) 2023 INFLUENZA VACCINE [...] age to complete this topic Care Teams Botanical Technical Officer Relationship Specialty Start Date End Date Azael Howard DO PCP - General Internal Medicine 09/05/13
--- OUTSIDE RECORDS SUMMARY | 2024-03-29 09:46 | XMS_ITS | Clinical Summary ---
Author Organization [facility] Address [address] [place] [address] Care Team Providers Care Lay Up Operator Name Role Phone Azael Howard DO Primary Care Provider [phone] Allergies Active Allergy Reactions Criticality Noted Date [...] on file Legal Sex Female 8:49 AM OFFICE WORKER Gender Identity Not on file Sexual Orientation Not on file Obstetrics History Last Filed Vital Signs Vital Sign Reading Time Taken Comments Blood Pressure 132/90 01/27/2023 3:57 PM OFFICE WORKER Pulse 86 01/27/2023 3:57 PM OFFICE WORKER Temperature 36.9 C (98.4 F) 01/27/2023 3:57 PM OFFICE WORKER Respiratory Rate 18 01/27/2023 3:57 PM OFFICE WORKER Oxygen Saturation 98% 01/27/2023 3:57 PM OFFICE WORKER Inhaled Oxygen Concentration - - Weight 92.5 kg (204 lb) 01/27/2023 3:57 PM OFFICE WORKER Height 154.9 cm (5' 1 ) 01/27/2023 3:57 PM OFFICE WORKER Body Mass Index 38.55 01/27/2023 3:57 PM OFFICE WORKER Plan of Treatment Health Maintenance Due Date [...] patient's age to complete this topic Insurance [facility] [employer] [facility] [facility] [employer]PPO Address: [place] [address] [facility] [employer] [employer] [employer]/PPO Address: [facility] [address] [phone] Care Teams Lay Up Operator Relationship Specialty Start Date End Date Azael Howard DO PCP - General Internal Medicine 04/13/19
--- OUTSIDE RECORDS SUMMARY | 2024-03-29 09:46 | XMS_ITS | Referral Summary ---
Author Organization [facility] Address [address] [place] [address] Care Team Providers Care Blow Pit Helper Name Role Phone Azael Howard DO Primary Care Provider +1- [phone] Allergies Active Allergy Reactions Criticality Noted Date [...] on file Legal Sex Female 8:49 AM LAW WRITER Gender Identity Not on file Sexual Orientation Not on file Last Filed Vital Signs Vital Sign Reading Time Taken Comments Blood Pressure 132/90 01/27/2023 3:57 PM LAW WRITER Pulse 86 01/27/2023 3:57 PM LAW WRITER Temperature 36.9 C (98.4 F) 01/27/2023 3:57 PM LAW WRITER Respiratory Rate 18 01/27/2023 3:57 PM LAW WRITER Oxygen Saturation 98% 01/27/2023 3:57 PM LAW WRITER Inhaled Oxygen Concentration - - Weight 92.5 kg (204 lb) 01/27/2023 3:57 PM LAW WRITER Height 154.9 cm (5' 1 ) 01/27/2023 3:57 PM LAW WRITER Body Mass Index 38.55 01/27/2023 3:57 PM LAW WRITER Plan of Treatment Not on file Insurance [facility] PLUS [facility] H[facility]PPO Address[facility] [address] [place] [address] [facility] CHOICE PLUS [facility] H[facility]/PPO Address: [address] [address] [place] [address] Care Teams Blow Pit Helper Relationship Specialty Start Date End Date Azael Howard DO PCP - General Internal Medicine 04/13/19
--- OUTSIDE RECORDS SUMMARY | 2024-03-29 09:46 | XMS_ITS | Clinical Summary ---
Author Organization [facility] Address [address] [place] [address] Phone Care Team Providers Care Motorized Squad Captain Name Role Phone Azael Howard DO Primary [...] 100 05/03/2021 10:02 AM CDT Temperature 36.3 C (97.3 F) 05/03/2021 8:04 AM CDT Respiratory Rate 20 05/03/2021 10:02 AM CDT [...] copy. Current study was also evaluated with Stick and PlayD version 7.2. CLINICAL: Diagnostic study new baseline. [...] be contacted. Simon Munoz M.D. bs/:09/30/2016 15:18:15 Sales Host: Valentina Ceron (R), [facility] letter sent: Additional Imaging Reading location: [facility] BI-RADS: 0 Additional Imaging Evaluation Needed [...] be contacted. Simon Munoz M.D. bs/:09/30/2016 15:18:15 Sales Host: Valentina Ceron (R), [facility] letter sent: Additional Imaging Reading location: [facility] BI-RADS: 0 Additional Imaging Evaluation Needed us Bethany Rachel MD IMG MAMMO ORDERABLES Final Re sult from Last 3 Months or Most Recently Relevant to Health Maintenance Care Teams Motorized Squad Captain Relationship Specialty Start Date End Date Azael Howard DO [address] [place] [address] PCP - General Internal Medicine 12/31/15
== END 2024-03-29 09:36 | disposition home or self-care (01) ==
PROVIDERS: PCP Internal Medicine; Visit Provider Clinical Nurse Specialist
DX: Z12.31 Encounter for screening mammogram for malignant neoplasm of breast (principal); R92.8 Other abnormal and inconclusive findings on diagnostic imaging of breast
CPT/HCPCS: 77063; 77067

== ENCOUNTER 2024-04-03 13:01 | Outpatient (CLI) | payer OTHER, SELFPAY ==
--- NOTE | ~2024-04-03 | MMUS_ITS ---
EXAMINATION: MM diagnostic sandra RT w grant, US breast RT limited HISTORY: Right breast mass TECHNIQUE: Additional 3-D tomosynthesis images of the right breast were performed and synthetic 2-D i mages were generated. CAD analysis was submitted and interpreted. High resolution limited right breas t ultrasound was performed. COMPARISON: 03/29/2024 BREAST PARENCHYMAL COMPOSITION:Not Dense. There are scattered areas of fibroglandular density. FINDINGS: MAMMOGRAPHIC FINDINGS: Spot compression views confirm a low-density ovoid 1 cm mass at the slightly lower, central right baljeet ast. ULTRASOUND: At the 7:00 position right breast, 2 cm from nipple, there is a 5 x 6 x 5 mm hypoechoic circumscribed round mass. No posterior shadowing. IMPRESSION: 6 mm probable benign mass at the 7:00 position right breast, as detailed above. Six-month follow-up ultrasound recommended to reassess. BI-RADS category 3, probably benign findings. Reviewed, dictated and finalized at location . TECHNICAL MGR IMPRESSION: 6 mm probable benign mass at the 7:00 position right breast, as detailed above . Six-month follow-up ultrasound recommended to reassess. BI-RADS category 3, probably benign findings.
--- OUTSIDE RECORDS SUMMARY | 2024-04-03 14:49 | XMS_ITS | Patient Health Record ---
Author Organization [employer] [facility] Address [address] [place] [address] Care Team Providers Care Mexican Food Maker Name Role Phone EfremAzael dolan Primary Care Provider UnavailJuan Castro DPM Unavailable [phone] ALLERGIES Allergen (clinical drug ingredient) Drug/Non Drug [...] lower limb (G57.82) 05/23/19 24 Active confirmed [id number] Problem Metatarsalgia, left foot (M77.42) 05/23/19 24 Active confirmed [id number] VITAL SIGNS Blood pressure diastolic 77 mm Hg 05/23/2023 Height 61 in 05/23/2023 Blood pressure systolic 123 mm Hg 05/23/2023 Weight 198 lbs 05/23/2023 BMI 37.41 kg/m2 05/23/2023 Encounters Encounter Location Date Provider Diagnosis [facility] [address] [place] [address] 05/23/2023 Juan Fritz DPM Neuroma of third [...] Insured Coverage Start Date Coverage End Date [facility] [address] [address] [place] [address] [phone] [id number] Jin Man Self - patient is the insured MEDICAL (GENERAL) HISTORY Medical History History ICD Code depression irritable bowel syndrome neuropathy Surgical History Surgery Date(Month/Year) hysterectomy 07/2009 left achilles tendon repair 02/2017 gallbladder 2013
--- OUTSIDE RECORDS SUMMARY | 2024-04-03 14:49 | XMS_ITS | Clinical Summary ---
Author Organization [facility] Address [address] [place] [address] Phone Care Team Providers Care Wood Heel Cementer Name Role Phone Azael Howard DO Primary [...] 08/11/2054 Discussion re Starting/Frequ ency of Mammograms Discontinued 09/30/2016 Meningococcal Immunization (ACWY) Aged Out No longer eligible based on patient's age to complete this topic Pneumococcal Immunization Combined Aged Out No longer eligible b ased [...] be contacted. Simon Munoz M.D. bs/:09/30/2016 15:18:15 Cement Car Dumper: Valentina Ceron (R), [facility] letter sent: Additional Imaging Reading location: [facility] BI-RADS: 0 Additional Imaging Evaluation Needed Procedure [...] be contacted. Simon Munoz M.D. bs/:09/30/2016 15:18:15 Cement Car Dumper: Valentina Ceron (R), [facility] letter sent: Additional Imaging Reading location: [facility] BI-RADS: 0 Additional Imaging Evaluation Needed us Bethany Rachel MD IMG MAMMO ORDERABLES Final Re sult from Last 3 Months or Most Recently Relevant to Health Maintenance Care Teams Wood Heel Cementer Relationship Specialty Start Date End Date Azael Howard DO [address] [facility] [place] [address] PCP - General Internal Medicine 12/31/15
--- OUTSIDE RECORDS SUMMARY | 2024-04-03 14:49 | XMS_ITS | Patient Health Summary ---
Author Organization [facility] Address [address] [place] [address] Care Team Providers Care Egg Breaker Name Role Phone Azael Howard DO Primary Care Provider [phone] Note from [facility],non-owned Affiliates and Associated Physician Practices is amultiple site organization consisting of ambulatory clinics and hospital sitesin [place], [place], [place] and [place]. This disclosure is being madepursuant to the Care Everywhere program and may not contain all information available regarding this patient. Last updated 17.[facility] Allergies * Ciprofloxacin(Rash) -Low Criticality * Penicillins(Rash) [...] Strep A Internal Control Present Lot # [id number] Expiration Date [id number] Throat ENTIRE THROAT (SURFACE REGION OF NECK) / Unknown 06/16/2017 Reyna Cevallos TIME STUDY TECHNICIAN-OVERLAY OPERATOR LAB - POINT O F CARE ORDERABLES * INFLUENZA A+B - POINT OF CARE (AMB) (06/16/2017) Influenza A Antigen Rapid Negative Negative Influenza B Antigen Rapid Negative Negative Influenza Internal Control neg/pos NEGATIVE - POSITIVE Influenza Lot Number [id number] Influenza Expiration Date Other NASOPHARYNGEAL SWAB / Unknown 06/16/2017 Reyna Cevallos TIME STUDY TECHNICIAN-OVERLAY OPERATOR LAB - POINT O F CARE ORDERABLES Care Teams Egg Breaker Relationship Specialty Start Date End Date Azael Howard DO PCP - General Internal Medicine 09/05/13
--- OUTSIDE RECORDS SUMMARY | 2024-04-03 14:49 | XMS_ITS | Referral Summary ---
Author Organization [facility] Address [address] [place] [address] Care Team Providers Care Stereotype Molder Name Role Phone Azael Howard DO Primary Care Provider +1- [phone] Allergies Active Allergy Reactions Criticality Noted Date [...] on file Legal Sex Female 8:49 AM PICKING TECH Gender Identity Not on file Sexual Orientation Not on file Last Filed Vital Signs Vital Sign Reading Time Taken Comments Blood Pressure 132/90 01/27/2023 3:57 PM PICKING TECH Pulse 86 01/27/2023 3:57 PM PICKING TECH Temperature 36.9 C (98.4 F) 01/27/2023 3:57 PM PICKING TECH Respiratory Rate 18 01/27/2023 3:57 PM PICKING TECH Oxygen Saturation 98% 01/27/2023 3:57 PM PICKING TECH Inhaled Oxygen Concentration - - Weight 92.5 kg (204 lb) 01/27/2023 3:57 PM PICKING TECH Height 154.9 cm (5' 1 ) 01/27/2023 3:57 PM PICKING TECH Body Mass Index 38.55 01/27/2023 3:57 PM PICKING TECH Plan of Treatment Not on file Insurance [facility] [place] [address] [facility] CHO[facility] PLUS Care Teams Stereotype Molder Relationship Specialty Start Date End Date Azael Howard DO PCP - General Internal Medicine 04/13/19
--- OUTSIDE RECORDS SUMMARY | 2024-04-03 14:49 | XMS_ITS | Clinical Summary ---
Author Organization [facility] Address [address] [place] [address] Care Team Providers Care Sales Planning Analyst Name Role Phone Azael Howard DO Primary Care Provider +1- [phone] Allergies Active Allergy Reactions Criticality Noted Date [...] on file Legal Sex Female 8:49 AM NONPROFIT DIRECTOR Gender Identity Not on file Sexual Orientation Not on file Obstetrics History Last Filed Vital Signs Vital Sign Reading Time Taken Comments Blood Pressure 132/90 01/27/2023 3:57 PM NONPROFIT DIRECTOR Pulse 86 01/27/2023 3:57 PM NONPROFIT DIRECTOR Temperature 36.9 C (98.4 F) 01/27/2023 3:57 PM NONPROFIT DIRECTOR Respiratory Rate 18 01/27/2023 3:57 PM NONPROFIT DIRECTOR Oxygen Saturation 98% 01/27/2023 3:57 PM NONPROFIT DIRECTOR Inhaled Oxygen Concentration - - Weight 92.5 kg (204 lb) 01/27/2023 3:57 PM NONPROFIT DIRECTOR Height 154.9 cm (5' 1 ) 01/27/2023 3:57 PM NONPROFIT DIRECTOR Body Mass Index 38.55 01/27/2023 3:57 PM NONPROFIT DIRECTOR Plan of Treatment Health Maintenance Due Date [...] patient's age to complete this topic Insurance [facility] CHOICE PLUS [facility] CHOICE PLUS [place] [id number] Care Teams Sales Planning Analyst Relationship Specialty Start Date End Date Azael Howard DO PCP - General Internal Medicine 04/13/19
--- OUTSIDE RECORDS SUMMARY | 2024-04-03 14:49 | XMS_ITS ---
Author Organization [employer] [facility] Address [address], [place] [address] Care Team Providers Care Stunt Double Name Role Phone Azael Howard Primary Care Provider UnavailJuan Castro DPM Unavailable [phone] ALLERGIES Allergen (clinical drug ingredient) Drug/Non Drug [...] lower limb (G57.82) 05/23/19 24 Active confirmed [id number] Problem Metatarsalgia, left foot (M77.42) 05/23/19 24 Active confirmed [id number] VITAL SIGNS Blood pressure systolic 123 mm Hg 05/23/19 24 Blood pressure diastolic 77 mm Hg 024 Height 61 in 05/23/2023 Weight 198 lbs 05/23/2023 BMI 37.41 kg/m2 05/23/2023 Encounters Encounter Location Date Provider Diagnosis [facility] [address] [place] [address] 05/23/2023 Juan Fritz DPM Neuroma of third [...]
--- OUTSIDE RECORDS SUMMARY | 2024-04-03 14:49 | XMS_ITS | Clinical Summary ---
Author Organization [facility] Address [address] [place] [address] Care Team Providers Care Entrepreneurship Program Director Name Role Phone Unavailable Primary Care Provider [...]
--- OUTSIDE RECORDS SUMMARY | 2024-04-03 14:49 | XMS_ITS | Clinical Summary ---
Author Organization [facility] [employer] Address [address] [place] [address] Care Team Providers Care Arts Education Teacher Name Role Phone Azael Howard DO Primary Care Provider [phone] Source Comments [facility] [employer],non-owned Affiliates and Associated Physician Practices is amultiple site organization consisting of ambulatory clinics and hospital sitesin [place], [place], [place] and [place]. This disclosure is being madepursuant to the Care Everywhere program and may not contain all information available regarding this patient. Last updated 17.[facility] [employer] Allergies Active Allergy Reactions Criticality Noted Date [...] age to complete this topic Care Teams Arts Education Teacher Relationship Specialty Start Date End Date Azael Howard DO PCP - General Internal Medicine 09/05/13
--- OUTSIDE RECORDS SUMMARY | 2024-04-03 14:49 | XMS_ITS | Referral Summary ---
Author Organization [facility] Address [address] [place] [address] Care Team Providers Care Model Maker Name Role Phone Azael Howard DO Primary Care Provider [phone] Source Comments [facility],non-owned Affiliates and Associated Physician Practices is amultiple site organization consisting of ambulatory clinics and hospital sitesin [place], [place], [place] and [place]. This disclosure is being madepursuant to the Care Everywhere program and may not contain all information available regarding this patient. Last updated 17.[facility] Allergies Active Allergy Reactions Criticality Noted Date [...] of Treatment Not on file Care Teams Model Maker Relationship Specialty Start Date End Date Azael Howard DO PCP - General Internal Medicine 09/05/13
== END 2024-04-03 13:02 | disposition home or self-care (01) ==
PROVIDERS: PCP Internal Medicine; Visit Provider Clinical Nurse Specialist
DX: N63.13 Unspecified lump in the right breast, lower outer quadrant (principal); R92.8 Other abnormal and inconclusive findings on diagnostic imaging of breast
CPT/HCPCS: 76642; 77061; 77065; G0279

== ENCOUNTER 2024-04-27 15:24 | Emergency (ER) | payer OTHER, SELFPAY ==
--- NOTE | ~2024-04-27 | XR_ITS ---
HISTORY: achilles tendon pain COMPARISON: 05/29/2020. Reference is also made to an MRI examination of the right ankle performed 06/08. TECHNIQUE: 3 views of the right ankle were performed FINDINGS: Degenerative disease is identified with a prominent calcaneal spur. No acute fracture or dislocation. No significant soft tissue swelling. The ankle mortise is preserved. Bone mineralization is age-appropriate. IMPRESSION: Degenerative disease, without acute fracture. Reviewed, dictated and finalized at location A.
--- OUTSIDE RECORDS SUMMARY | 2024-04-27 15:27 | XMS_ITS ---
Author Organization [facility] Address [address], [place] [address] Care Team Providers Care Beam Worker Name Role Phone Azael Howard Primary Care Provider UnavailJuan Castro DPM Unavailable [phone] ALLERGIES Allergen (clinical drug ingredient) Drug/Non Drug [...] lower limb (G57.82) 05/23/19 24 Active confirmed [id number] Problem Metatarsalgia, left foot (M77.42) 05/23/19 24 Active confirmed [id number] VITAL SIGNS Blood pressure systolic 123 mm Hg 05/23/19 24 Blood pressure diastolic 77 mm Hg 024 Height 61 in 05/23/2023 Weight 198 lbs 05/23/2023 BMI 37.41 kg/m2 05/23/2023 Encounters Encounter Location Date Provider Diagnosis [facility] [address] [place] [address] 05/23/2023 Juan Fritz DPM Neuroma of third [...]
--- OUTSIDE RECORDS SUMMARY | 2024-04-27 15:27 | XMS_ITS | Clinical Summary ---
Author Organization [facility] Address [address] [place] [address] Care Team Providers Care Health Unit Coordinator Name Role Phone Unavailable Primary Care Provider [...]
--- OUTSIDE RECORDS SUMMARY | 2024-04-27 15:27 | XMS_ITS | Clinical Summary ---
Author Organization [facility] Address [address] [place] [address] Care Team Providers Care Elevator Operator Freight Name Role Phone Azael Howard DO Primary Care Provider [phone] Source Comments [facility],non-owned Affiliates and Associated Physician Practices is amultiple site organization consisting of ambulatory clinics and hospital sitesin [place], [place], [place] and [place]. This disclosure is being madepursuant to the Care Everywhere program and may not contain all information available regarding this patient. Last updated 17.[facility] Allergies Active Allergy Reactions Criticality Noted Date [...] to complete this topic MENINGOCOCCAL (Group B) VACC INE SHARED DECISION-MAKING Aged Out No longer eligibl e based on patient's age to complete this topic MENINGOCOCCAL GROUPS A/C/Y/W VACCINE Aged Out No longer eligible b ased on patient's age to complete this topic PNEUMOCOCCAL VACCINE Aged Out No long er eligible based on patient's age to complete this topic Care Teams Elevator Operator Freight Relationship Specialty Start Date End Date Azael Howard DO PCP - General Internal Medicine 09/05/13
--- OUTSIDE RECORDS SUMMARY | 2024-04-27 15:28 | XMS_ITS | Patient Health Record ---
Author Organization [facility] Address [address] [place] [address] Care Team Providers Care County Manager Name Role Phone EfremAzael dolan Primary Care Provider UnavailJuan Castro DPM Unavailable [phone] ALLERGIES Allergen (clinical drug ingredient) Drug/Non Drug [...] lower limb (G57.82) 05/23/19 24 Active confirmed [id number] Problem Metatarsalgia, left foot (M77.42) 05/23/19 24 Active confirmed [id number] VITAL SIGNS Blood pressure diastolic 77 mm Hg 05/23/2023 Height 61 in 05/23/2023 Blood pressure systolic 123 mm Hg 05/23/2023 Weight 198 lbs 05/23/2023 BMI 37.41 kg/m2 05/23/2023 Encounters Encounter Location Date Provider Diagnosis [facility] [address] [place] [address] 05/23/2023 Juan Fritz DPM Neuroma of third [...] Start Date Coverage End Date [facility] [address] [address] [place] [address] [phone] [id number] Jin Man Self - patient is the insured MEDICAL (GENERAL) HISTORY Medical History History ICD Code depression irritable bowel syndrome neuropathy Surgical History Surgery Date(Month/Year) hysterectomy 07/2009 left achilles tendon repair 02/2017 gallbladder 2013
--- OUTSIDE RECORDS SUMMARY | 2024-04-27 15:28 | XMS_ITS | Clinical Summary ---
Author Organization [facility] Address [address] [place] [address] Phone Care Team Providers Care Extraction Operator Name Role Phone Azael Howard DO [...] be contacted. Simon Munoz M.D. bs/:09/30/2016 15:18:15 Law Writer: Valentina Ceron (R), [facility] letter sent: Additional Imaging Reading location: [facility] BI-RADS: 0 Additional Imaging Evaluation [...] be contacted. Simon Munoz M.D. bs/:09/30/2016 15:18:15 Law Writer: Valentina Ceron (R), [facility] letter sent: Additional Imaging Reading location: [facility] BI-RADS: 0 Additional Imaging Evaluation Needed us Bethany Rachel MD IMG MAMMO ORDERABLES Final Re sult from Last 3 Months or Most Recently Relevant to Health Maintenance Care Teams Extraction Operator Relationship Specialty Start Date End Date Azael Howard DO [address] [place] [address] PCP - General Internal Medicine 12/31/15
--- OUTSIDE RECORDS SUMMARY | 2024-04-27 15:28 | XMS_ITS | Referral Summary ---
Author Organization [facility] Address [address] [place] [address] Care Team Providers Care Assistant Oceanographer Name Role Phone Azael Howard DO Primary Care Provider +1- [phone] Allergies Active Allergy Reactions Criticality Noted Date [...] on file Legal Sex Female 8:49 AM ANIMAL PHYSIOLOGIST Gender Identity Not on file Sexual Orientation Not on file Last Filed Vital Signs Vital Sign Reading Time Taken Comments Blood Pressure 132/90 01/27/2023 3:57 PM ANIMAL PHYSIOLOGIST Pulse 86 01/27/2023 3:57 PM ANIMAL PHYSIOLOGIST Temperature 36.9 C (98.4 F) 01/27/2023 3:57 PM ANIMAL PHYSIOLOGIST Respiratory Rate 18 01/27/2023 3:57 PM ANIMAL PHYSIOLOGIST Oxygen Saturation 98% 01/27/2023 3:57 PM ANIMAL PHYSIOLOGIST Inhaled Oxygen Concentration - - Weight 92.5 kg (204 lb) 01/27/2023 3:57 PM ANIMAL PHYSIOLOGIST Height 154.9 cm (5' 1 ) 01/27/2023 3:57 PM ANIMAL PHYSIOLOGIST Body Mass Index 38.55 01/27/2023 3:57 PM ANIMAL PHYSIOLOGIST Plan of Treatment Not on file Insurance [facility] CHOICE PLUS [facility] HMO/PPO Address: [address] [address] [place] [address] [facility] CHOICE PLUS [facility] HMO/PPO Address: [address] [address] [place] [address] Care Teams Assistant Oceanographer Relationship Specialty Start Date End Date Azael Howard DO PCP - General Internal Medicine 04/13/19
--- OUTSIDE RECORDS SUMMARY | 2024-04-27 15:28 | XMS_ITS | Data Portability ---
Author Organization [facility] Address [address] [place] [address] Assessment Encounter Date Assessment Date Assessment LastModified [...] Imaging MAMMO, screening, digital, bilateral 2019 020 [facility], [address] [place] [address] [address], [place], [address], 1 05:06:03 Medication Orders None recorded. Patient [...] and labor atory findi ngs. See https ://[employer] ([employer]IS)/s ites/ defau lt/fi les/2 018-0 3/AW- 34927 _002_ 01.pd f for furth er infor matio n. Test perfo rmed by [facility] d/b/a Yoni drew, [address], [place] [address] , Clyde Saenz ra, DO, Labor atory [...] e detec tion of E6/E7 viral mRNA. [facility] [[email or web address]] parker pradhan be corre lated with patimelissa nt prese ntati on, histo ry, cervi paige cytol ogy and other clini paige and labor atory findi ngs. See https ://[employer] ([employer]IS)/s ites/ defau lt/fi les/2 018-0 3/AW- 09498 _002_ 01.pd f for deondre er infor sarah n. Test perfo rmed by [facility] [employer], d/b/a [facility], [address], [place] [address] , Clyde Saenz ra, DO, Labor atory Direc tor. End of t Techn ical servi minh provi ded by [facility] [employer], d/b/a [facility], [address] [place] [address] Murali Parsons MD, Labor atorLight Harmonic Dire tor. Case revie wed and diagn osis rende red at [facility], d/b/a [facility], [address] [place] [address] Murali Parsons MD, Labor atorLight Harmonic Dire tor. CONFI DENTI AL Not Available [facility] ([facility]) [address], [place], [address], 07/19/2019 12:08:58 07/17/19 20 07/18/2019 HPV DNA, high- risk HPV high risk NOT DETECT ED normal Not Available [facility]) [address], [place], [address], 07/19/2019 12:08:59 08/16/19 20 08/15/2019 MAMMO , diagn ostic , digit al, bilat eral No observ ation record ed. [address], [place], [address], 12/14/2019 11:12:30 Result Notes None recorded. Problems Name Problem SNOMED Code Status Onset Date Resolution Date Notes Provider Name and Address Organization Details Recorded Time Menopause present 507100521 Active 2015 Symptoms such as flushing, sleeplessn ess, headache, lack of concentrat ion, associated with natural (age-relat ed) menopause; Recorded Elsewhere: No Locatio n: [facility] rce: EHR Chroni c: N Practice ID: 0001 Billa ble Time: 11:15:00 AM Not Available [employer] 0 21:48:18 Acute vaginitis 12101378 Active 2019 Vaginitis; Recorded Elsewhere: No Locatio n: [facility] rce: EHR Chroni c: N Practice ID: 0001 Billa ble Time: 10:45:00 AM Not Available [employer] 0 21:48:[address] Concept Active 2015 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) (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) w/o abn findings;R ecorded Elsewhere: No Locatio n: [facility] rce: EHR Chroni c: N Practice ID: 0001 Billa ble Time: 11:15:00 AM Not Available [employer] 0 21:48:[address] Concept Active 2015 Encntr for general adult medical exam w/o abnormal findings;R ecorded Elsewhere: No Locatio n: [facility] rce: EHR Chroni c: N Practice ID: 0001 Billa ble Time: 11:15:00 AM Not Available [employer] 0 21:48:18 Breast lump 64770077 Active 2016 Lump in breast;Rec orded Elsewhere: No Locatio n: [facility] rce: EHR Chroni c: N Practice ID: 0001 Billa ble Time: 09:45:00 AM Not Available [employer] 0 21:48:18 Specializ ed medical examinati on Active 2014 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;Recorded Elsewhere: No Locatio n: [facility] rce: EHR Chroni c: N Practice ID: 0001 Billa ble Time: 01:30:00 PM Not Available [employer] 0 21:48:18 Vaginolab ial hernia Active 2017 Other specified noninflamm atory disorders of vagina;Rec orded Elsewhere: No Locatio n: [facility] rce: EHR Chroni c: N Practice ID: 0001 Billa ble Time: 11:00:00 AM Not Available [facility] 0 21:48:18 Screening for malignant neoplasm of cervix Active 2014 Screening for malignant neoplasms of the cervix;Rec orded Elsewhere: No Locatio n: [facility] rce: EHR Chroni c: N Practice ID: 0001 Billa ble Time: 01:30:00 PM Not Available [facility] 0 21:48:18 Screening procedure Active 2013 Special screening for malignant neoplasms, vagina;Rec orded Elsewhere: No Locatio n: [facility] rce: EHR Chroni c: N Practice ID: 0001 Billa ble Time: 12:30:00 PM Not Available [employer] 0 21:48:19 Acute vulvitis 56733501 Active 2016 Vulvitis;R ecorded Elsewhere: No Locatio n: [facility] rce: EHR Chroni c: N Practice ID: 0001 Billa ble Time: 01:00:00 PM Not Available [employer] 0 21:48:19 Finding of trunk structure 967222057 Active 2013 Abdominal or pelvic swelling, mass, or lump, generalize d;Recorded Elsewhere: No Locatio n: [facility] rce: EHR Chroni c: N Practice ID: 0001 Billa ble Time: 10:00:00 AM Not Available [facility] 0 21:48:19 Adult health examinati on Active 2014 ROUTINE MEDICAL EXAM;Recor ded Elsewhere: No Locatio n: [facility] rce: EHR Chroni c: N Practice ID: 0001 Billa ble Time: 01:30:00 PM Not Available [facility] 0 21:48:19 Microscop ic hematuria 225876194 Active 2013 MICROSCOPI C HEMATURIA; Recorded Elsewhere: No Locatio n: [facility] rce: EHR Chroni c: N Practice ID: 0001 Billa ble Time: 12:30:00 PM Not Available [facility] 0 21:48:19 Abnormal cervical Papanicol aou smear 999907780 Active 2013 Other abnormal papanicola ou smear of cervix and cervical HPV;Record ed Elsewhere: No Locatio n: [facility] rce: EHR Chroni c: N Practice ID: 0001 Billa ble Time: 12:30:00 PM Not Available [facility] 0 21:48:19 Problem Notes None recorded. Procedures Surgical History Date Name Laterality Status Provider Name and Address Organization Details Recorded Time Partial Hysterectomy completed [facility] 07/17/2019 11:56:[address] [facility] 07/17/2019 11:56:07 Imaging Results Imaging Date Name Status LastModified by Organiz ation Details LastModified Time 08/15/2019 MAMMO, diagnostic, digital, bilateral completed [facility] [address] [place], [place] [address] [address] [place] [address], [id number], 12/14/2019 11:12:30 Procedure Notes None recorded. Medical Equipment None Reported. Allergies Allergen ID Allergen Name Allergen Category Reaction Reaction Severity Criticality Documentation Date Start Date Code Code System Note Provider Name and Address Organization Details Recorded Time 921 ciproflox acin medicatio n Not available Not available Not available 07/17/[address] [facility] 0 11:54:39 922 Product containin g penicilli n (product) medicatio n Not available Not available Not available 07/17/2019 50217 8001 SNOMED Vero Osorio [facility] 0 11:54:43 Medications Name Sig Start Date Stop Date Status Note LastModified by Organization Details LastModified Time amitripty line 75 mg tablet take 1 tablet by oral route every day at bedtime 2014 active Prescrib ed Elsewher e: Yes Loca tion: Xiomara melissa [facility] odify By: kmkirkpa trick En counter DateTime : 08/31/19 15 01:30:00 PM Not Available Not Available Not Available Diflucan 150 mg tablet take 1 tablet by oral route once 08/15 completed Prescrib ed Elsewher e: No Locat ion: Mirna torres [facility] odify By: sherron fanunter DateTime : 05/11/19 18 11:00:00 AM Not Available Not Available Not Available meloxicam 7.5 mg tablet take 1 tablet by oral route every day 2016 active Prescrib ed Elsewher e: Yes Loca tion: Mirna torres [facility] odify By: aayush fanunter DateTime : 09/22/19 17 09:45:00 AM Not Available Not Available Not Available betametha sone valerate 0.1 % topical cream apply by topical route every day a thin layer to the affected area(s) 05/10 completed Prescrib ed Elsewher e: No Locat ion: [facility] odify By: steven chowdary DateTime : 01/29/20 17 01:00:00 PM Not Available Not Available Not Available Terazol 7 0.4 % vaginal cream insert 1 applicat orful by vaginal route every day for 7 days at bedtime 03/02 completed Prescrib ed Elsewher e: No Locat ion: [facility] odify By: toni fanuntjose DateTime : 02/24/19 18 10:10:22 AM Not [...] Updated DateTime 07/17/2019 1859.28 cm 0.3 kg/m2 40858.51 g 117 mm[Hg] 79 mm[Hg] Vero Osorio [place] - [facility] 0 12:02:07 Social History None recorded. [...] Code Diagnosis Note [id number] Kimber Rangel , [facility] [address] [address] 07/17/2019 11:52:14 07/17/2019 13:24:16 Gynecologic examination [id number] Z12.39 Suggested Calcium with Vitamin D 1200-1500m g daily. Patient advised to get an annual flu shot in the fall and she could obtain at [facility] or [facility] clinic. Also to obtain TDap vaccinatio n [...] Madden Member ID Guarantor Name 07/17/2019 1 [facility] [id number] Jin Man [id number] Notes Date Note Type Note Provider Name [...] Kimber Rangel MARCO ANTONIO- [address], [place], [address], [facility] 07/17/2019 12:20:48 OBGyn Episode Ob Episode Information Episode Created Date Number of Fetuses Patient Bloodtype Patient rh Status Prepregnancy Weight lbs Domestic Partner Domestic Partner Phone Father Name Processor Solid Propellant Status 07/17/19 20 1 CLOSED Fetus Data [...] Domestic Partner Domestic Partner Phone Father Name Processor Solid Propellant Status 07/17/19 20 1 CLOSED Fetus Data [...] Date Ultra Sound Latest Weeks Gestation Final Ferdniand Confirmed By Final Ferdinand Confirmed Date Final [...]
--- OUTSIDE RECORDS SUMMARY | 2024-04-27 15:28 | XMS_ITS | Clinical Summary ---
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 Gender Identity Not on file Sexual Orientation Not on file Obstetrics History Last Filed Vital Signs Vital Sign Reading Time Taken Comments Blood Pressure 132/90 01/27/2023 3:57 PM CUSHION BUILDER Pulse 86 01/27/2023 3:57 PM CUSHION BUILDER Temperature 36.9 C (98.4 F) 01/27/2023 3:57 PM CUSHION BUILDER Respiratory Rate 18 01/27/2023 3:57 PM CUSHION BUILDER Oxygen Saturation 98% 01/27/2023 3:57 PM CUSHION BUILDER Inhaled Oxygen Concentration - - Weight 92.5 kg (204 lb) 01/27/2023 3:57 PM CUSHION BUILDER Height 154.9 cm (5' 1 ) 01/27/2023 3:57 PM CUSHION BUILDER Body Mass Index 38.55 01/27/2023 3:57 PM CUSHION BUILDER Plan of Treatment Health Maintenance Due Date [...] patient's age to complete this topic Insurance [facility] CHO[facility] PLUS [facility] PLUS Care Teams Supervisor Tank House Relationship Specialty Start Date End Date Azael Howard DO PCP - General Internal Medicine 04/13/19
[2024-04-27 15:39] VITALS: BP 131/79; PULSE 82; RESP 20; TEMP 36.7; O2SAT 98
--- NOTE | 2024-04-27 15:47 | ED.EXTPRO ---
HPI - Extremity Problem General Chief complaint: Extremity Problem,Nontraumatic Stated complaint: right foot pain Time Seen by Provider: 04/27/24 15:47 Source: patient Mode of arrival: ambulatory Limitations: no limitations History of Present Illness HPI Narrative: 43 yo F presents with pain to R achilles tendon for several wks. States she feels hard swollen knot to tendon for 1 to 2 wks. The past few days has had decreased ROM, pain to medial and lateral aspects of ankle and pain with bearing weight. hobbled out of work last night due to pain . No injury. Works 70 to 80 hrs a wk. 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 Does a lot of walking and standing. Hx of surgery to L achilles tendon. All systems reviewed and negative except as noted above. Related Data Allergies Allergy/AdvReac Type Severity Reaction Status Date / Time ciprofloxacin AdvReac Unknown Nausea and Verified 03/06/24 16:10 Vomiting SOB Penicillins AdvReac Unknown Nausea and Verified 03/06/24 16:10 Vomiting SOB Review of Systems Review of Systems: CONSTITUTIONAL: Denies fever, chills, or sweats. EYES: Denies visual changes, redness, or discharge. ENT: Denies rhinorrhea, congestion, sore throat, or otalgia. CARDIOVASCULAR: Denies chest pain, palpitations, or edema. RESPIRATORY: Denies cough or dyspnea. GASTROINTESTINAL: Denies abdominal pain, nausea, vomiting, or diarrhea. GENITOURINARY: Denies dysuria or hematuria. SKIN: Denies rash or itching. MUSCULOSKELETAL: Denies back pain, joint pain, or myalgia. Reports right ankle pain and pain to Achilles tendon NEUROLOGIC: Denies headache, numbness, or weakness. PSYCHIATRIC: Denies anxiety or depression. All other systems reviewed are negative, except as documented in HPI. [facility] Past Medical History Medical History IBS (irritable bowel syndrome) Wears glasses Weight gain Achilles tendinitis, left leg Surgical History Surgical History History of cholecystectomy H/O: hysterectomy History of foot surgery left Family History Family History Mother Diabetes mellitus COPD (chronic obstructive pulmonary disease) Emphysema lung Heart problem Arthritis Kidney disorder Grandparent Breast cancer Other Depression Heart disease High cholesterol Lung cancer Neuropathy Social History Social History Social History: caffeine-soda 12 oz daily Smoking status: Never smoker Alcohol intake: current Alcohol use details: rarely Substance use: never Substance use type: does not use Lack of Transportation: No Lack of Food: Never True Current Housing: I Have Housing Concerned About Future Housing: No Difficulty Paying Gas/Electric Bills: No Difficulty Paying for Meds: No Currently Unemployed: No Education: High School Diploma/GED Difficulty w/ Childcare or Family Care: No Gender identity (if verbalized by the patient): Female Comments At time of signature, agree with nursing past medical, surgical, social and family history. There is no relevant family history pertinent to the presenting complaint. Exam Narrative: GENERAL: This is a well-nourished, well-developed patient, in no apparent distress. HEAD: normocephalic, atraumatic. EYES: PERRL. Sclera clear/white. Vision is grossly intact. EARS: External ears normal NOSE: External nose normal NECK: Neck supple, non-tender without lymphadenopathy, masses or thyromegaly. CARDIOVASCULAR: Regular rate and rhythm without murmurs, gallops, or rubs. RESPIRATORY: Clear to auscultation. Breath sounds equal bilaterally. No wheezes, rales, or rhonchi. SKIN: warm, Dry, intact with no suspicious lesions or rash, good texture and turgor. NEURO: awake, alert, and oriented to person, place and time. There were no obvious focal neurologic abnormalities. EXTREMITIES: generalized tenderness to L ankle without significant swelling. decreased flexion/extension due to pain. hard, swollen area felt to Achilles tendon Course Course Level of Care: Express Care Visit Vital Signs Vital signs: Vital Signs Temperature 36.7 C 04/27/24 15:39 Pulse Rate 82 04/27/24 15:39 Respiratory Rate 20 04/27/24 15:39 Blood Pressure 131/79 04/27/24 15:39 Pulse Oximetry 98 04/27/24 15:39 Oxygen Delivery Room Air 04/27/24 15:39 Temperature 36.7 C 04/27/24 15:39 Pulse Rate 82 04/27/24 15:39 Respiratory Rate 20 04/27/24 15:39 Blood Pressure 131/79 04/27/24 15:39 Pulse Oximetry 98 04/27/24 15:39 Oxygen Delivery Room Air 04/27/24 15:39 reviewed MDM - Extremity (Nontraumatic) MDM Narrative Medical decision making narrative: X-ray of right ankle is negative for fracture. Patient has a foot and ankle specialist in [place] that she saw several years ago for surgery to left Achilles tendon. Would prefer to have a foot and ankle specialist closer to home. Referred to Dr. Vasquez for further evaluation. Please be advised this is a medical document. It is intended for [id number] communication. It is written in medical language and may contain unfamiliar abbreviations or verbiage. Medical documents are intended to carry relevant information, facts as evident, and the clinical opinion of the practitioner at the time of the encounter. This report may have been done utilizing a voice recognition system. Attempts have been made to correct errors. However, there may be uncorrected grammatical, spelling, and recognition errors present. The file time of this note does not necessarily represent the time of service. Imaging Data My impression: agree with radiologist Radiologist's impression: HISTORY: achilles tendon pain COMPARISON: 05/29/2020. Reference is also made to an MRI examination of the right ankle performed 06/30/2020. TECHNIQUE: 3 views of the right ankle were performed FINDINGS: Degenerative disease is identified with a prominent calcaneal spur. No acute fracture or dislocation. No significant soft tissue swelling. The ankle mortise is preserved. Bone mineralization is age-appropriate. IMPRESSION: Degenerative disease, without acute fracture. Discharge Plan Discharge Clinical Impression: Right ankle strain Qualifiers: Encounter type: initial encounter Qualified Code(s): S96.911A - Strain of unspecified muscle and tendon at ankle and foot level, right foot, initial encounter Achilles tendonitis Qualifiers: Laterality: right Qualified Code(s): M76.61 - Achilles tendinitis, right leg Patient Disposition: Home, Self-Care Condition: Stable Instructions: Achilles Tendinitis (ED) Additional Instructions: The x-ray of your right ankle was negative for fracture. Take ibuprofen every 6 to 8 hours as needed for pain. Apply ice as needed for pain. Elevate when at rest. Avoid activities that increase pain. Wear supportive shoes. Stretch daily. Patient Language: Malagasy Prescriptions: No Action methylprednisolone [Medrol (Silvestre)] 4 mg tablets,dose pack See Rx Instructions .ROUTE .COMPLEX Qty: 21 0RF Rx Instructions: for 6 days bupropion HCl [Wellbutrin XL] 300 mg tablet extended release 24 hr 300 mg PO QAM Qty: 90 1RF duloxetine [Cymbalta] 60 mg capsule,delayed release(DR/EC) 60 mg PO DAILY Qty: 90 1RF alprazolam [Xanax] 0.5 mg tablet 0.5 mg PO BID PRN (Reason: anxiety) Qty: 30 2RF Follow-up/Referrals: Fernando Vasquez MD [Physician] - (follow up with foot/ankle specialist for further evaluation) Tracy Rosen, ACCOUNTING LECTURER-C [Primary Care Provider] - Stand Alone Forms: Work/School Release IP Time of Disposition: 16:23
== END 2024-04-27 16:34 | disposition home or self-care (01) ==
PROVIDERS: Emergency Provider Nurse Practitioner Family; PCP Clinical Nurse Specialist
DX: S96.911A Strain of unspecified muscle and tendon at ankle and foot level, right foot, initial encounter (principal); X58.XXXA Exposure to other specified factors, initial encounter; M76.61 Achilles tendinitis, right leg; K58.9 Irritable bowel syndrome, unspecified
CPT/HCPCS: 73610; 99213; G0463

== ENCOUNTER 2024-05-10 15:24 | Emergency (ER) | payer OTHER, SELFPAY ==
--- NOTE | ~2024-05-10 | XR_ITS ---
HISTORY: pain x 2 days. [place] carpals 1/2, distal rad COMPARISON: None TECHNIQUE: 3 views of the right wrist were performed FINDINGS: No acute fracture is identified. The carpal arcs are intact. Mild radiocarpal joint space narrowing with sclerosis of the distal radius is present. The remaining visualized joint spaces are otherwise preserved. Bone mineralization is unremarkable. IMPRESSION: Trace degenerative disease, without acute fracture or dislocation. Reviewed, dictated and finalized at location A.
--- NOTE | 2024-05-10 15:34 | ED_ITS ---
HPI - Extremity Injury (Upper) General Chief Complaint: Extremity Injury, Upper Stated Complaint: Right Hand Pain Time Seen by Provider: 05/10/24 15:40 Source: patient, RN notes reviewed and old records reviewed Mode of arrival: ambulatory Limitations: no limitations History of Present Illness HPI narrative: 43-year-old female presents to the [facility] with 2 day history of right hand and wrist pain. States she does a lot of repetitive motion and a lot a lifting. Patient's pain for 2nd metacarpal, distal radius. No snuffbox tenderness. Capillary refill under 2 seconds. Does have full range of motion Related Data Allergies Allergy/AdvReac Type Severity Reaction Status Date / Time ciprofloxacin AdvReac Unknown Nausea and Verified 05/10/24 15:48 Vomiting SOB Penicillins AdvReac Unknown Nausea and Verified 05/10/24 15:48 Vomiting SOB Review of Systems Review of Systems: All systems reviewed & are unremarkable except as noted in HPI and below Constitutional: Constitutional: Reports no additional constitutional complaints ENT: Reports system reviewed and no additional complaints, except as documented Cardiovascular: Cardiovascular: Reports no additional cardiovascular complaints, Denies chest pain and Denies dyspnea Respiratory: Respiratory: Reports no additional respiratory complaints, Denies chest congestion, Denies cough and Denies dyspnea Musculoskeletal: Musculoskeletal: Reports as per HPI Integumentary/Breasts: Skin/Breast: Reports system reviewed and no additional complaints, except as docu PMFSH Past Medical History Medical History IBS (irritable bowel syndrome) Wears glasses Weight gain Achilles tendinitis, left leg Surgical History Surgical History History of cholecystectomy H/O: hysterectomy History of foot surgery left Family History Family History Mother Diabetes mellitus COPD (chronic obstructive pulmonary disease) Emphysema lung Heart problem Arthritis Kidney disorder Grandparent Breast cancer Other Depression Heart disease High cholesterol Lung cancer Neuropathy Social History Social History Social History: caffeine-soda 12 oz daily Smoking status: Never smoker Alcohol intake: current Alcohol use details: rarely Substance use: never Substance use type: does not use Lack of Transportation: No Lack of Food: Never True Current Housing: I Have Housing Concerned About Future Housing: No Difficulty Paying Gas/Electric Bills: No Difficulty Paying for Meds: No Currently Unemployed: No Education: High School Diploma/GED Difficulty w/ Childcare or Family Care: No Gender identity (if verbalized by the patient): Female Comments At the time of my signature, I reviewed and agree with the nursing past medical, surgical, social, and family history. There is no relevant family history per tinent to the patient complaint. Exam Const: General: cooperative, healthy appearing, comfortable, no acute distress, well developed, alert and well nourished Nutritional Appearance: well nourished and obese Orientation/consciousness: patient oriented x3 Limitations: no limitations HENMT: Head: normal to inspection Eyes: General: appearance normal, both eyes and all related structures Alignment and Position: alignment normal Neck: Neck: normal visual inspection, full ROM, no lymphadenopathy and no meningeal signs Chest: Chest palpation & inspection: normal inspection of the chest Resp: Effort & Inspection: normal respiratory effort and able to speak in complete sentences Cardio: Rate: regular rate Skin: General skin exam: normal color and no rashes or lesions noted Neuro: General: patient oriented x3, gait normal, moves all extremities and no meningeal signs Cognition (Neuro): normal cognition Speech: normal speech Gait exam (Neuro): Normal gait present Extrem: General: normal to inspection, full ROM, capillary refill normal and normal gait Right upper extremity: wrist tenderness, abnormal ROM pain with active ROM during, normal vascular exam and radial pulse present; no swelling, no unusual warmth, no abrasions, no lacerations, no ecchymosis and no deformity and Extremity exam: right hand normal capillary refill, tenderness of the dorsal hand over the 1st metacarpal, over the 2nd metacarpal and over the 3rd metacarpal and no swelling; no abrasions, no lacerations and no ecchymosis Psych: Appearance: grossly normal and well kempt Mental Status: mental status grossly normal Speech and movement: Normal speech and movement present and Clear speech present Affect: normal affect Attitude: cooperative Course Course Level of Care: Express Care Visit Vital Signs Vital signs: Vital Signs Temperature 97.2 F L 05/10/24 15:39 Pulse Rate 79 05/10/24 15:39 Respiratory Rate 16 05/10/24 15:39 Blood Pressure 131/85 05/10/24 15:39 Pulse Oximetry 100 05/10/24 15:39 Oxygen Delivery Room Air 05/10/24 15:39 Temperature 97.2 F L 05/10/24 15:39 Pulse Rate 79 05/10/24 15:39 Respiratory Rate 16 05/10/24 15:39 Blood Pressure 131/85 05/10/24 15:39 Pulse Oximetry 100 05/10/24 15:39 Oxygen Delivery Room Air 05/10/24 15:39 Reviewed MDM - Extremity Injury (Upper) MDM Narrative Medical decision making narrative: Patient sitting in exam room. Nontoxic, vitals stable. Patient presents with right hand and wrist pain with no known injury. X-ray shows no acute findings. Patient appropriate for outpatient treatment with close follow-up. Patient presented already within Rhys wrap. Discharge instructions reviewed with patient, as well as provided in writing per nursing staff. The instructions also include specific and strict return/GO TO THE ER as well as f/u information. All questions have been answered, and the patient deny any further questions with discharge and discharge plan. Some parts of this dictation were generated by voice recognition software and may contain typographical and/or grammatical inaccuracies. Differential Diagnosis Differential diagnosis: Likely sprain and strain of wrist, fracture of wrist and other Imaging Data Radiologist's impression: HISTORY: pain x 2 days. [place] carpals 1/2, distal rad COMPARISON: None TECHNIQUE: 3 views of the right wrist were performed FINDINGS: No acute fracture is identified. The carpal arcs are intact. Mild radiocarpal joint space narrowing with sclerosis of the distal radius is present. The remaining visualized joint spaces are otherwise preserved. Bone mineralization is unremarkable. IMPRESSION: Trace degenerative disease, without acute fracture or dislocation. Critical Care Time Critical Care Time Critical Care Time: No Discharge Plan Discharge Clinical Impression: Strain of right wrist, Hand strain Patient Disposition: Home, Self-Care Condition: Stable Instructions: Antibiotic Form, Wrist Sprain (ED), Arthritis (ED) Additional Instructions: Your Xray did not show a fracture. Ice should be applied to help with pain. It can be used for 20 to 30 minutes, every 2-3 hours while awake. Do not apply ice directly to your skin. Wear the Rhys wrap or purchase a wrist splint or support You can alternate ibuprofen 600mg and Tylenol 650mg every 4 hours as needed for pain Please schedule a follow-up visit with your personal physician for further zeinab luation and treatment within 2 weeks especially if symptoms persist. For new or worsening symptoms go directly to the emergency room Patient Language: French Prescriptions: No Action bupropion HCl [Wellbutrin XL] 300 mg tablet extended release 24 hr 300 mg PO QAM Qty: 90 1RF duloxetine [Cymbalta] 60 mg capsule,delayed release(DR/EC) 60 mg PO DAILY Qty: 90 1RF alprazolam [Xanax] 0.5 mg tablet 0.5 mg PO BID PRN (Reason: anxiety) Qty: 30 2RF Follow-up/Referrals: Azael Howard DO [Primary Care Provider] - 2 Weeks ([facility] follow-up) Stand Alone Forms: Work/School Release IP Time of Disposition: 16:10
[2024-05-10 15:39] VITALS: BP 131/85; PULSE 79; RESP 16; TEMP 36.2; O2SAT 100
--- OUTSIDE RECORDS SUMMARY | 2024-05-10 15:39 | XMS_ITS | Clinical Summary ---
Author Organization [facility] Address [address] [place] [address] Care Team Providers Care Silk Washing Machine Operator Name Role Phone Azael Howard DO Primary Care Provider [phone] Source Comments [facility],non-owned Affiliates and Associated Physician Practices is amultiple site organization consisting of ambulatory clinics and hospital sitesin [place], [place], [place] and [place]. This disclosure is being madepursuant to the Care Everywhere program and may not contain all information available regarding this patient. Last updated 17.[facility] Allergies Active Allergy Reactions Criticality Noted Date [...] age to complete this topic Care Teams Silk Washing Machine Operator Relationship Specialty Start Date End Date Azael Howard DO PCP - General Internal Medicine 09/05/13
--- OUTSIDE RECORDS SUMMARY | 2024-05-10 15:39 | XMS_ITS | Clinical Summary ---
Author Organization [facility] Address [address] [place] [address] Care Team Providers Care Tenterer Name Role Phone Unavailable Primary Care Provider [...]
--- OUTSIDE RECORDS SUMMARY | 2024-05-10 15:39 | XMS_ITS | Clinical Summary ---
Author Organization [facility] [address] [facility] Address [address] [place] [address] Care Team Providers Care Clinical Reimbursement Specialist Name Role Phone Azael Howard DO Primary Care Provider [phone] Allergies Active Allergy Reactions Criticality Noted Date [...] on file Legal Sex Female 8:49 AM FEATHER CUTTING MACHINE FEEDER Gender Identity Not on file Sexual Orientation Not on file Obstetrics History Last Filed Vital Signs Vital Sign Reading Time Taken Comments Blood Pressure 132/90 01/27/2023 3:57 PM FEATHER CUTTING MACHINE FEEDER Pulse 86 01/27/2023 3:57 PM FEATHER CUTTING MACHINE FEEDER Temperature 36.9 C (98.4 F) 01/27/2023 3:57 PM FEATHER CUTTING MACHINE FEEDER Respiratory Rate 18 01/27/2023 3:57 PM FEATHER CUTTING MACHINE FEEDER Oxygen Saturation 98% 01/27/2023 3:57 PM FEATHER CUTTING MACHINE FEEDER Inhaled Oxygen Concentration - - Weight 92.5 kg (204 lb) 01/27/2023 3:57 PM FEATHER CUTTING MACHINE FEEDER Height 154.9 cm (5' 1 ) 01/27/2023 3:57 PM FEATHER CUTTING MACHINE FEEDER Body Mass Index 38.55 01/27/2023 3:57 PM FEATHER CUTTING MACHINE FEEDER Plan of Treatment Health Maintenance Due Date Last Done Comments Breast Cancer Screening-Mammogram 1979 Depression Screening 1979 Hepatitis C Screening 1979 DTaP/Tdap/Td Vaccine (1 - Tdap) 08/11/1990 Varicella Vaccines (1 of 2 - 13+ 2-dose series) 08/11/1992 Hepatitis B Screening 08/11/1997 Regular Well Visit/Exam 18-64 08/11/1997 Influenza Vaccine (Season Ended) 2024 HPV Vaccines Aged Out No longer eligi ble based on patient's age to complete this topic Pneumococcal vaccine <65 Aged Out No longer eligible based on patient's age to complete this topic Insurance [facility] CHOICE PLUS [facility] CHOICE PLUS Care Teams Clinical Reimbursement Specialist Relationship Specialty Start Date End Date Azael Howard DO PCP - General Internal Medicine 04/13/19
--- OUTSIDE RECORDS SUMMARY | 2024-05-10 15:39 | XMS_ITS | Referral Summary ---
Author Organization [facility] [address] [facility] Address [address] [place] [address] Care Team Providers Care Marine Railway Operator Name Role Phone Azael Howard DO Primary Care Provider [phone] Allergies Active Allergy Reactions Criticality Noted Date [...] on file Legal Sex Female 8:49 AM CHIEF PRIVACY OFFICER Gender Identity Not on file Sexual Orientation Not on file Last Filed Vital Signs Vital Sign Reading Time Taken Comments Blood Pressure 132/90 01/27/2023 3:57 PM CHIEF PRIVACY OFFICER Pulse 86 01/27/2023 3:57 PM CHIEF PRIVACY OFFICER Temperature 36.9 C (98.4 F) 01/27/2023 3:57 PM CHIEF PRIVACY OFFICER Respiratory Rate 18 01/27/2023 3:57 PM CHIEF PRIVACY OFFICER Oxygen Saturation 98% 01/27/2023 3:57 PM CHIEF PRIVACY OFFICER Inhaled Oxygen Concentration - - Weight 92.5 kg (204 lb) 01/27/2023 3:57 PM CHIEF PRIVACY OFFICER Height 154.9 cm (5' 1 ) 01/27/2023 3:57 PM CHIEF PRIVACY OFFICER Body Mass Index 38.55 01/27/2023 3:57 PM CHIEF PRIVACY OFFICER Plan of Treatment Not on file Insurance [facility] CHOICE PLUS [facility] CHOICE PLUS Care Teams Marine Railway Operator Relationship Specialty Start Date End Date Azael Howard DO PCP - General Internal Medicine 04/13/19
--- OUTSIDE RECORDS SUMMARY | 2024-05-10 15:39 | XMS_ITS | Data Portability ---
Author Organization [facility] Address [address] [place] [address] Assessment Encounter Date Assessment Date Assessment LastModified [...] Imaging MAMMO, screening, digital, bilateral 2019 020 [facility], [address] [place] [address] [address], [place], [address], 1 05:06:03 Medication Orders None recorded. Patient [...] and labor atory findi ngs. See https ://Zipano/s ites/ defau lt/fi les/2 018-0 3/AW- 80003 _002_ 01.pd f for furth er infor matio n. Test perfo rmed by [facility] d/b/a [facility], [address], [place] [address] , Clyde Saenz ra, DO, Labor atory [...] e detec tion of E6/E7 viral mRNA. [facility] parker pradhan be corre lated with patimelissa nt prese ntati on, histo ry, cervi paige cytol ogy and other clini paige and labor atory findi ngs. See https ://Zipano/s ites/ defau lt/fi les/2 018-0 3/AW- 94833 _002_ 01.pd f for deondre er infor sarah n. Test perfo rmed by [facility], d/b/a [facility], [address], [place] [address] , Clyde Saenz ra, DO, Labor atory Direc tor. End of t Techn ical servi minh provi ded by [facility], d/b/a [facility], [address] [place] [address] Murali Parsons MD, Labor atorD.[employer] Dire tor. Case revie wed and diagn osis rende red at [facility], d/b/a [facility], [address] [place] [address] Murali Parsons MD, Labor atorD.[employer] Dire tor. CONFI DENTI AL Not Available [facility] ([facility]) [address], [place], [address], 07/19/2019 12:08:58 07/17/19 20 07/18/2019 HPV DNA, high- risk HPV high risk NOT DETECT ED normal Not Available [facility]) [address], [place], [address], 07/19/2019 12:08:59 08/16/19 20 08/15/2019 MAMMO , diagn ostic , digit al, bilat eral No observ ation record ed. [address], [place], [address], 12/14/2019 11:12:30 Result Notes None recorded. Problems Name Problem SNOMED Code Status Onset Date Resolution Date Notes Provider Name and Address Organization Details Recorded Time Menopause present 125185022 Active 2015 Symptoms such as flushing, sleeplessn ess, headache, lack of concentrat ion, associated with natural (age-relat ed) menopause; Recorded Elsewhere: No Locatio n: [facility] rce: EHR Chroni c: N Practice ID: 0001 Billa ble Time: 11:15:00 AM Not Available [employer] 0 21:48:18 Acute vaginitis 44147424 Active 2019 Vaginitis; Recorded Elsewhere: No Locatio n: [facility] rce: EHR Chroni c: N Practice ID: 0001 Billa ble Time: 10:45:00 AM Not Available [facility] 0 21:48:[address] Concept Active 2015 Encntr for senior vice president and chief information officer exam (general) (routine) w/o abn findings;R ecorded Elsewhere: No Locatio n: [facility] rce: EHR Chroni c: N Practice ID: 0001 Billa ble Time: 11:15:00 AM Not Available [employer] 0 21:48:[address] Concept Active 2015 Encntr for general adult medical exam w/o abnormal findings;R ecorded Elsewhere: No Locatio n: [facility] rce: EHR Chroni c: N Practice ID: 0001 Billa ble Time: 11:15:00 AM Not Available [facility] 0 21:48:18 Breast lump 03815631 Active 2016 Lump in breast;Rec orded Elsewhere: No Locatio n: [facility] rce: EHR Chroni c: N Practice ID: 0001 Billa ble Time: 09:45:00 AM Not Available [facility] 0 21:48:18 Specializ ed medical examinati on Active 2014 ROUTINE PARKER EXAMINATIO N;Recorded Elsewhere: No Locatio n: [facility] rce: EHR Chroni c: N Practice ID: 0001 Billa ble Time: 01:30:00 PM Not Available [facility] 0 21:48:18 Vaginolab ial hernia Active 2017 Other specified noninflamm atory disorders of vagina;Rec orded Elsewhere: No Locatio n: [facility] rce: EHR Chroni c: N Practice ID: 0001 Billa ble Time: 11:00:00 AM Not Available [facility] 0 21:48:18 Screening for malignant neoplasm of cervix Active 2014 Screening for malignant neoplasms of the cervix;Rec orded Elsewhere: No Locatio n: [facility] rce: EHR Chroni c: N Practice ID: 0001 Billa ble Time: 01:30:00 PM Not Available [facility] 0 21:48:18 Screening procedure Active 2013 Special screening for malignant neoplasms, vagina;Rec orded Elsewhere: No Locatio n: [facility] rce: EHR Chroni c: N Practice ID: 0001 Billa ble Time: 12:30:00 PM Not Available [facility] 0 21:48:19 Acute vulvitis 82595875 Active 2016 Vulvitis;R ecorded Elsewhere: No Locatio n: [facility] rce: EHR Chroni c: N Practice ID: 0001 Billa ble Time: 01:00:00 PM Not Available [facility] 0 21:48:19 Finding of trunk structure 046532826 Active 2013 Abdominal or pelvic swelling, mass, or lump, generalize d;Recorded Elsewhere: No Locatio n: [facility] rce: EHR Chroni c: N Practice ID: 0001 Billa ble Time: 10:00:00 AM Not Available [facility] 0 21:48:19 Adult health examinati on Active 2014 ROUTINE MEDICAL EXAM;Recor ded Elsewhere: No Locatio n: [facility] rce: EHR Chroni c: N Practice ID: 0001 Billa ble Time: 01:30:00 PM Not Available [facility] 0 21:48:19 Microscop ic hematuria 997275193 Active 2013 MICROSCOPI C HEMATURIA; Recorded Elsewhere: No Locatio n: [facility] rce: EHR Chroni c: N Practice ID: 0001 Billa ble Time: 12:30:00 PM Not Available [facility] 0 21:48:19 Abnormal cervical Papanicol aou smear 425484102 Active 2013 Other abnormal papanicola ou smear of cervix and cervical HPV;Record ed Elsewhere: No Locatio n: [facility] rce: EHR Chroni c: N Practice ID: 0001 Billa ble Time: 12:30:00 PM Not Available [facility] 0 21:48:19 Problem Notes None recorded. Procedures Surgical History Date Name Laterality Status Provider Name and Address Organization Details Recorded Time Partial Hysterectomy completed [facility] 07/17/2019 11:56:01 Cholecystectomy completed [facility] 07/17/2019 11:56:07 Imaging Results Imaging Date Name Status LastModified by Organiz ation Details LastModified Time 08/15/2019 MAMMO, diagnostic, digital, bilateral completed [facility] [address] [place], [place] [address] [address] [place] [address], [address], 12/14/2019 11:12:30 Procedure Notes None recorded. Medical [...] Not available Not available Not available 07/17/2019 [id number] SNOMED Vero Osorio [facility] 0 11:54:43 Medications Name Sig Start Date Stop Date Status Note LastModified by Organization Details LastModified Time amitripty line 75 mg tablet take 1 tablet by oral route every day at bedtime 2014 active Prescrib ed Elsewher e: Yes Loca tion: Xiomara melissa [facility]ify By: [email or web address] trick En counter DateTime : 08/31/19 15 01:30:00 PM Not Available Not Available Not Available Diflucan 150 mg tablet take 1 tablet by oral route once 08/15 completed Prescrib ed Elsewher e: No Locat ion: Mirna torres [facility]ify By: sherron fanunter DateTime : 05/11/19 18 11:00:00 AM Not Available Not Available Not Available meloxicam 7.5 mg tablet take 1 tablet by oral route every day 2016 active Prescrib ed Elsewher e: Yes Loca tion: Mirna torres [facility]ify By: aayush fanunter DateTime : 09/22/19 17 09:45:00 AM Not Available Not Available Not Available betametha sone valerate 0.1 % topical cream apply by topical route every day a thin layer to the affected area(s) 05/10 completed Prescrib ed Elsewher e: No Locat ion: [facility] odify By: steven chowdary DateTime : 01/29/20 17 01:00:00 PM Not Available Not Available Not Available Terazol 7 0.4 % vaginal cream insert 1 applicat orful by vaginal route every day for 7 days at bedtime 03/02 completed Prescrib ed Elsewher e: No Locat ion: [facility] odify By: toni fanuntjose DateTime : 02/24/19 [...] Updated DateTime 07/17/2019 1859.28 cm 0.3 kg/m2 72076.51 g 117 mm[Hg] 79 mm[Hg] Vero Osorio [place] - [facility] 0 12:02:07 Social History None [...] Code Diagnosis Note [id number] Kimber Rangel , [facility] [address] [address] 07/17/2019 11:52:14 07/17/2019 13:24:16 Gynecologic examination [id number] Z12.39 Suggested Calcium with Vitamin D 1200-1500m g daily. Patient advised to get an annual flu shot in the fall and she could obtain at [facility] or [facility] clinic. Also to obtain TDap vaccinatio [...] Madden Member ID Guarantor Name 07/17/2019 1 [facility] [id number] Jin Man [id number] Notes Date Note Type Note Provider Name [...] Kimber Rangel MARCO ANTONIO- [address], [place], [address], [facility] 07/17/2019 12:20:48 OBGyn Episode Ob Episode Information Episode Created Date Number of Fetuses Patient Bloodtype Patient rh Status Prepregnancy Weight lbs Domestic Partner Domestic Partner Phone Father Name Sign Shop Supervisor Status 07/17/19 20 1 CLOSED Fetus Data [...] Domestic Partner Domestic Partner Phone Father Name Sign Shop Supervisor Status 07/17/19 20 1 CLOSED Fetus Data [...]
--- OUTSIDE RECORDS SUMMARY | 2024-05-10 15:39 | XMS_ITS | Patient Health Record ---
Author Organization [facility] Address [address] [place] [address] Care Team Providers Care Fringing Machine Operator Name Role Phone EfremAzael dolan Primary Care Provider UnavailJuan Castro DPM Unavailable [phone] ALLERGIES Allergen (clinical drug ingredient) Drug/Non Drug [...] lower limb (G57.82) 05/23/19 24 Active confirmed 767108526 Problem Metatarsalgia, left foot (M77.42) 05/23/19 24 Active confirmed 018030309074093 VITAL SIGNS Blood pressure diastolic 77 mm Hg 05/23/2023 Height 61 in 05/23/2023 Blood pressure systolic 123 mm Hg 05/23/2023 Weight 198 lbs 05/23/2023 BMI 37.41 kg/m2 05/23/2023 Encounters Encounter Location Date Provider Diagnosis [facility] [address] [place] [address] 05/23/2023 Juan Fritz DPM Neuroma of third [...] Insured Coverage Start Date Coverage End Date [facility] [address] [address] [place] [address] [id number] Jin Man Self - patient is the insured MEDICAL (GENERAL) HISTORY Medical History History ICD Code depression irritable bowel syndrome neuropathy Surgical History Surgery Date(Month/Year) hysterectomy 07/2009 left achilles tendon repair 02/2017 gallbladder 2013
--- OUTSIDE RECORDS SUMMARY | 2024-05-10 15:39 | XMS_ITS ---
Author Organization [facility] Address [address] [address] Care Team Providers Care Mounting Inspector Name Role Phone Azael Howard Primary Care Provider UnavailJuan Castro DPM Unavailable [phone] ALLERGIES Allergen (clinical drug ingredient) Drug/Non Drug [...] lower limb (G57.82) 05/23/19 24 Active confirmed 214953788 Problem Metatarsalgia, left foot (M77.42) 05/23/19 24 Active confirmed [id number] VITAL SIGNS Blood pressure systolic 123 mm Hg 05/23/19 24 Blood pressure diastolic 77 mm Hg 024 Height 61 in 05/23/2023 Weight 198 lbs 05/23/2023 BMI 37.41 kg/m2 05/23/2023 Encounters Encounter Location Date Provider Diagnosis [facility] [address] [place] [address] 05/23/2023 Juan Frtiz DPM Neuroma of third interspace of left [...]
--- OUTSIDE RECORDS SUMMARY | 2024-05-10 15:39 | XMS_ITS | Clinical Summary ---
Author Organization [facility] Address [address] [place] [address] Phone Care Team Providers Care Chief I Dispatcher Name Role Phone Azael Howard DO Primary [...] be contacted. Simon Munoz M.D. bs/:09/30/2016 15:18:15 Accounts Supervisor: Valentina Ceron (R), [facility] letter sent: Additional Imaging Reading location: [facility] BI-RADS: 0 Additional Imaging Evaluation Needed [...] be contacted. Simon Munoz M.D. bs/:09/30/2016 15:18:15 Accounts Supervisor: Valentina Ceron (R), [facility] letter sent: Additional Imaging Reading location: [facility] BI-RADS: 0 Additional Imaging Evaluation Needed us Bethany Rachel MD IMG MAMMO ORDERABLES Final Re sult from Last 3 Months or Most Recently Relevant to Health Maintenance Care Teams Chief I Dispatcher Relationship Specialty Start Date End Date Azael Howard DO [address] [place] [address] PCP - General Internal Medicine 12/31/15
== END 2024-05-10 16:10 | disposition home or self-care (01) ==
PROVIDERS: Emergency Provider Nurse Practitioner; PCP Internal Medicine
DX: S66.911A Strain of unspecified muscle, fascia and tendon at wrist and hand level, right hand, initial encounter (principal); X50.3XXA Overexertion from repetitive movements, initial encounter; F41.9 Anxiety disorder, unspecified; Z85.9 Personal history of malignant neoplasm, unspecified
CPT/HCPCS: 73110; 99213; G0463

== ENCOUNTER 2024-07-18 21:45 | Emergency (ER) | payer OTHER, SELFPAY ==
[2024-07-18 21:47] VITALS: BP 148/92; PULSE 80; RESP 16; TEMP 36.3; O2SAT 96
--- OUTSIDE RECORDS SUMMARY | 2024-07-18 21:47 | XMS_ITS | Clinical Summary ---
Author Organization [facility] Address [address] [place] [address] Care Team Providers Care Prosthetist Name Role Phone Azael Howard DO Primary Care Provider [phone] Source Comments [facility],non-owned Affiliates and Associated Physician Practices is amultiple site organization consisting of ambulatory clinics and hospital sitesin [place], [place], [place] and [place]. This disclosure is being madepursuant to the Care Everywhere program and may not contain all information available regarding this patient. Last updated 17.[facility] Allergies Active Allergy Reactions Criticality Noted Date Comments Ciprofloxacin Rash Low 09/07/2013 vomiting Penicillins Rash Low 09/07/2013 vomiting Medications * Be aware that medications may not be up to date on this document. Alwaysverify current medications with the patient. amitriptyline (ELAVIL) 25 MG tablet Take 25 mg by mouth at bedtime. Active DICLOFENAC PO Active Social History Tobacco Use Types Packs/Day Years Used Date Smoking Tobacco: Never Alcohol Use Standard Drinks/Week Comments Yes 0 (1 standard drink = 0.6 oz pur e alcohol) Comments No Sex and Gender Information Value Date Recorded Sex Assigned at Not on file Legal Sex Female 3:04 PM CDT Gender Identity Not on file [...] 2:26 PM CDT Height 154.9 cm (5' 1) 06/16/2017 2:26 PM CDT Body Mass Index 36.84 06/16/2017 2:26 PM CDT Plan of Treatment Health Maintenance Due Date Last Done Comments LIPID TESTING 1979 MAMMOGRAM 1979 HIV SCREENING 08/11/1994 HEPATITIS C SCREENING 08/07/1997 DTAP/TDAP/TD VACCINES (1 - Tdap) 08/11/1998 HEPATITIS B VACCINE (1 of 3 - 19+ 3-dose series) 08/11/1998 COVID-19 VACCINE (1 - 2023-2 5 season) 2023 DEPRESSION SCREENING 02/08/2024 INFLUENZA VACCINE (Season Ended) 2024 ZOSTER VACCINE (1 of 2) 08/11/2029 HIB [...] age to complete this topic Insurance [facility] MEDICAID - OUT OF STATE Care Teams Prosthetist Relationship Specialty Start Date End Date Azael Howard DO PCP - General Internal Medicine 09/05/13
--- OUTSIDE RECORDS SUMMARY | 2024-07-18 21:48 | XMS_ITS | Data Portability ---
Author Organization [facility] Address [address] [place] [address] Assessment Encounter Date Assessment Date Assessment LastModified [...] Imaging MAMMO, screening, digital, bilateral 2019 [address] [facility], [address] [place] [address] [address], [place], [address], 1 05:06:03 Medication Orders None recorded. Patient [...] and labor atory findi ngs. See https ://InstraGrok/s ites/ defau lt/fi les/2 018-0 3/AW- 08225 _002_ 01.pd f for furth er infor matio n. Test perfo rmed by [facility], d/b/a Yoni drew, [address], [place] [address] , Clyde Saenz ra, DO, Labor atory [...] e detec tion of E6/E7 viral mRNA. [facility] parker pradhan be corre lated with patimelissa nt prese ntati on, histo ry, cervi paige cytol ogy and other clini paige and labor atory findi ngs. See https ://InstraGrok/s ites/ defau lt/fi les/2 018-0 3/AW- 17275 _002_ 01.pd f for deondre er infor sarah n. Test perfo rmed by [facility], d/b/a [facility], [address], [place] [address] , Clyde Saenz ra, DO, Labor atory Direc tor. End of t Techn ical servi minh provi ded by [facility], d/b/a [facility], [address] [place] [address] Murali Parsons MD, Labor at[facility] Dire tor. Case revie wed and diagn osis rende red at [facility] [employer], d/b/a [facility], [address] [place] [address] Murali Parsons MD, Labor at[facility] Dire tor. CONFI DENTI AL Not Available [facility] ([facility]) [address], [place], [address], 07/19/2019 12:08:58 07/17/19 20 07/18/2019 HPV DNA, high- risk HPV high risk NOT DETECT ED normal Not Available [facility] ([facility]) [address], [place], [address], 07/19/2019 12:08:59 08/16/19 20 08/15/2019 MAMMO , diagn ostic , digit al, bilat eral No observ ation record ed. [address], [place], [address], 12/14/2019 11:12:30 Result Notes None recorded. Problems Name Problem SNOMED Code Status Onset Date Resolution Date Notes Provider Name and Address Organization Details Recorded Time Menopause present 281133566 Active 2015 Symptoms such as flushing, sleeplessn ess, headache, lack of concentrat ion, associated with natural (age-relat ed) menopause; Recorded Elsewhere: No Locatio n: [facility] rce: EHR Chroni c: N Practice ID: 0001 Billa ble Time: 11:15:00 AM Not Available [facility] 0 21:48:18 Acute vaginitis 40350212 Active 2019 Vaginitis; Recorded Elsewhere: No Locatio n: [facility] rce: EHR Chroni c: N Practice ID: 0001 Billa ble Time: 10:45:00 AM Not Available [facility] 0 21:48:[address] Concept Active 2015 Encntr for casino surveillance officer exam (general) (routine) w/o abn findings;R ecorded Elsewhere: No Locatio n: [facility] rce: EHR Chroni c: N Practice ID: 0001 Billa ble Time: 11:15:00 AM Not Available [facility] 0 21:48:[address] Concept Active 2015 Encntr for general adult medical exam w/o abnormal findings;R ecorded Elsewhere: No Locatio n: [facility] rce: EHR Chroni c: N Practice ID: 0001 Billa ble Time: 11:15:00 AM Not Available [facility] 0 21:48:18 Breast lump 73801417 Active 2016 Lump in breast;Rec orded Elsewhere: No Locatio n: [facility] rce: EHR Chroni c: N Practice ID: 0001 Billa ble Time: 09:45:00 AM Not Available [facility] 0 21:48:18 Specializ ed medical examinati on Active 2014 ROUTINE COFFEE SAMPLER EXAMINATIO N;Recorded Elsewhere: No Locatio n: [facility] rce: EHR Chroni c: N Practice ID: 0001 Billa ble Time: 01:30:00 PM Not Available [facility] 0 21:48:18 Vaginolab ial hernia Active 2017 Other specified noninflamm atory disorders of vagina;Rec orded Elsewhere: No Locatio n: [facility] rce: EHR Chroni c: N Practice ID: 0001 Billa ble Time: 11:00:00 AM Not Available [facility] 0 21:48:18 Screening for malignant neoplasm of cervix Active 2014 Screening for malignant neoplasms of the cervix;Rec orded Elsewhere: No Locatio n: [facility] rce: EHR Chroni c: N Practice ID: 0001 Billa ble Time: 01:30:00 PM Not Available [facility] 0 21:48:18 Screening procedure Active 2013 Special screening for malignant neoplasms, vagina;Rec orded Elsewhere: No Locatio n: [facility] rce: EHR Chroni c: N Practice ID: 0001 Billa ble Time: 12:30:00 PM Not Available [facility] 0 21:48:19 Acute vulvitis 08602139 Active 2016 Vulvitis;R ecorded Elsewhere: No Locatio n: [facility] rce: EHR Chroni c: N Practice ID: 0001 Billa ble Time: 01:00:00 PM Not Available [facility] 0 21:48:19 Finding of trunk structure 076238304 Active 2013 Abdominal or pelvic swelling, mass, or lump, generalize d;Recorded Elsewhere: No Locatio n: [facility] rce: EHR Chroni c: N Practice ID: 0001 Billa ble Time: 10:00:00 AM Not Available [facility] 0 21:48:19 Adult health examinati on Active 2014 ROUTINE MEDICAL EXAM;Recor ded Elsewhere: No Locatio n: [facility] rce: EHR Chroni c: N Practice ID: 0001 Billa ble Time: 01:30:00 PM Not Available [facility] 0 21:48:19 Microscop ic hematuria 599057614 Active 2013 MICROSCOPI C HEMATURIA; Recorded Elsewhere: No Locatio n: [facility] rce: EHR Chroni c: N Practice ID: 0001 Billa ble Time: 12:30:00 PM Not Available [facility] 0 21:48:19 Abnormal cervical Papanicol aou smear 649475458 Active 2013 Other abnormal papanicola ou smear of cervix and cervical HPV;Record ed Elsewhere: No Locatio n: [facility] rce: EHR Chroni c: N Practice ID: 0001 Billa ble Time: 12:30:00 PM Not Available [facility] 0 21:48:19 Problem Notes None recorded. Procedures Surgical History Date Name Laterality Status Provider Name and Address Organization Details Recorded Time Partial Hysterectomy completed [facility] 07/17/2019 11:56:01 Cholecystectomy completed [facility] 07/17/2019 11:56:07 Imaging Results None recorded. Procedure Notes None recorded. Medical Equipment None Reported. Allergies Allergen ID Allergen Name Allergen Category Reaction Reaction Severity Criticality Documentation Date Start Date Code Code System Note Provider Name and Address Organization Details Recorded Time 921 ciproflox acin medicatio n Not available Not available Not available 07/17/2019 2551 RxNorm Vero Osorio [facility] 0 11:54:39 922 Product containin g penicilli n (product) medicatio n Not available Not available Not available 07/17/2019 11015 8001 SNOMED [facility] 0 11:54:43 Medications Name Sig Start Date Stop Date Status Note LastModified by Organization Details LastModified Time amitripty line 75 mg tablet take 1 tablet by oral route every day at bedtime 2014 active Prescrib ed Elsewher e: Yes [facility] By: [email or web address] trick En counter DateTime : 08/31/19 15 01:30:00 PM Not Available Not Available Not Available Diflucan 150 mg tablet take 1 tablet by oral route once 08/15 completed Prescrib ed Elsewher e: No Locat ion: [facility] odify By: sherron summers DateTime : 05/11/19 18 11:00:00 AM Not Available Not Available Not Available meloxicam 7.5 mg tablet take 1 tablet by oral route every day 2016 active Prescrib ed Elsewher e: Yes [facility] odify By: aayush summers DateTime : 09/22/19 17 09:45:00 AM Not Available Not Available Not Available betametha sone valerate 0.1 % topical cream apply by topical route every day a thin layer to the affected area(s) 05/10 completed Prescrib ed Elsewher e: No [facility]at ion[facility] odify By: steven chowdary DateTime : 01/29/20 17 01:00:00 PM Not Available Not Available Not Available Terazol 7 0.4 % vaginal cream insert 1 applicat orful by vaginal route every day for 7 days at bedtime 03/02 completed Prescrib ed Elsewher e: No Locat ion: [facility] odify By: toni summers DateTime : 02/24/19 18 10:10:22 AM Not [...] Updated DateTime 07/17/2019 1859.28 cm 0.3 kg/m2 43739.51 g 117 mm[Hg] 79 mm[Hg] Vero Osorio MS - [facility] 0 12:02:07 Social History None recorded. [...] Not available 2019 11:55:41 Maternal Grandmother Malignant neoplasm of lung tryan28 Not available 2019 11:55:49 [...] ICD10 Code Diagnosis Note 7118 Kimber Rangel [facility] [address] [address] 07/17/2019 11:52:14 07/17/2019 13:24:16 Gynecologic examination 95511569 Z12.39 Suggested Calcium with Vitamin D 1200-1500m g daily. Patient advised to get an annual flu shot in the fall and she could obtain at [facility] or [facility] care clinic. Also to obtain TDap vaccinatio n [...] Madden Member ID Guarantor Name 07/17/2019 1 [facility] [id number] Jin Man [id number] Notes Date Note Type Note Provider Name [...] smear/cervical dysplasia; Needs to schedule mammogram Kimber Rangel, [facility]- [address], [place], [address], [facility] 07/17/2019 12:20:48 OBGyn Episode Ob Episode Information Episode Created Date Number of Fetuses Patient Bloodtype Patient rh Status Prepregnancy Weight lbs Domestic Partner Domestic Partner Phone Father Name Marketing Communications Associate Status 07/17/19 20 1 CLOSED Fetus Data [...] Domestic Partner Domestic Partner Phone Father Name Marketing Communications Associate Status 07/17/19 20 1 CLOSED Fetus Data [...]
--- OUTSIDE RECORDS SUMMARY | 2024-07-18 21:48 | XMS_ITS | Patient Health Record ---
Author Organization [facility] Address [address] [place] [address] Care Team Providers Care District Or District Office Director Name Role Phone EfremAzael dolan Primary Care Provider Juan Bradley DPM Unavailable [phone] ALLERGIES Allergen (clinical drug ingredient) Drug/Non Drug [...] lower limb (G57.82) 05/23/19 24 Active confirmed 513581112 Problem Metatarsalgia, left foot (M77.42) 05/23/19 24 Active confirmed [id number] PLAN OF TREATMENT No Information Insurance Providers Payer Name Payer Address Payer Phone Subscriber Number Group Number Insured Name Patient Relationship to Insured Coverage Start Date Coverage End Date [facility] [address] [address] [place] [address] [phone] [id number] Jin Man Self - patient is the insured MEDICAL (GENERAL) HISTORY Medical History History ICD Code depression irritable bowel syndrome neuropathy Surgical History Surgery Date(Month/Year) hysterectomy 07/2009 left achilles tendon repair 02/2017 gallbladder 2013
--- OUTSIDE RECORDS SUMMARY | 2024-07-18 21:48 | XMS_ITS | Referral Summary ---
Author Organization [facility] Address [address] [place] [address] Care Team Providers Care Lithograph Press Operator Name Role Phone Azael Howard DO Primary Care Provider [phone]- [phone] Allergies Active Allergy Reactions Criticality Noted Date Comments Ciprofloxacin Anxiety,Vomiting Low Hot flashes, anxiety, vomiting Other Itching Low 04/30/2021 Medrol dose pack. She states she can take prednisone that is in the bottle. Penicillin G Anxiety,Vomiting Low Hot flashes, anxiety, [...] on file Legal Sex Female 8:49 AM CLERICAL ASSOCIATE Gender Identity Not on file Sexual Orientation Not on file Last Filed Vital Signs Vital Sign Reading Time Taken Comments Blood Pressure 132/90 01/27/2023 3:57 PM CLERICAL ASSOCIATE Pulse 86 01/27/2023 3:57 PM CLERICAL ASSOCIATE Temperature 36.9 C (98.4 F) 01/27/2023 3:57 PM CLERICAL ASSOCIATE Respiratory Rate 18 01/27/2023 3:57 PM CLERICAL ASSOCIATE Oxygen Saturation 98% 01/27/2023 3:57 PM CLERICAL ASSOCIATE Inhaled Oxygen Concentration - - Weight 92.5 kg (204 lb) 01/27/2023 3:57 PM CLERICAL ASSOCIATE Height 154.9 cm (5' 1) 01/27/2023 3:57 PM CLERICAL ASSOCIATE Body Mass Index 38.55 01/27/2023 3:57 PM CLERICAL ASSOCIATE Plan of Treatment Not on file Insurance [facility] CHOICE PLUS [facility] CHOICE PLUS Care Teams Lithograph Press Operator Relationship Specialty Start Date End Date Azael Howard DO PCP - General Internal Medicine 04/13/19
--- OUTSIDE RECORDS SUMMARY | 2024-07-18 21:48 | XMS_ITS | Clinical Summary ---
Author Organization [facility] Address [address] [place] [address] Phone Care Team Providers Care Belt Weaver Name Role Phone Azael Howard DO Primary [...] 8:04 AM CDT Height 154.9 cm (5' 1) 05/03/2021 8:04 AM CDT Body Mass Index 37.79 05/03/2021 8:04 AM CDT Plan of Treatment Health Maintenance Due Date Last Done Comments Hepatitis C Virus (HCV) Screening 1980 TdaP Immunization 1979 Human Papillomavirus (HPV) Immunization (1 - 3-dose series) 08/11/1994 Hepatitis B Immunization (1 of 3 - 19+ 3-dose series) 08/11/1998 SARS-COV-2 Immunization ( - 2023- season) 2023 Influenza Immunization (Seas on Ended) 2024 Respiratory Syncytial Virus (RSV) Immunization (Adult) (1 [...] be contacted. Simon Munoz M.D. bs/:09/30/2016 15:18:15 Delivery Table Operator: Valentina Ceron (Suik), [facility] letter sent: Additional Imaging Reading location: [facility] BI-RADS: 0 Additional Imaging Evaluation Needed Procedure [...] be contacted. Simon Munoz M.D. bs/:09/30/2016 15:18:15 Delivery Table Operator: Valentina Ceron (R), [facility] letter sent: Additional Imaging Reading location: [facility] BI-RADS: 0 Additional Imaging Evaluation Needed us Bethany Rachel MD IMG MAMMO ORDERABLES Final Re sult from Last 3 Months or Most Recently Relevant to Health Maintenance Care Teams Belt Weaver Relationship Specialty Start Date End Date Azael Howard DO [facility] [place] [address] PCP - General Internal Medicine 12/31/15
--- OUTSIDE RECORDS SUMMARY | 2024-07-18 21:48 | XMS_ITS ---
Author Organization [facility] Address [address], [place] [address] Care Team Providers Care Slip Caster Name Role Phone Azael Howard Primary Care Provider UnavailJuan Castro DPM Unavailable [phone] ALLERGIES Allergen (clinical drug ingredient) Drug/Non Drug [...] lower limb (G57.82) 05/23/19 24 Active confirmed 744420773 Problem Metatarsalgia, left foot (M77.42) 05/23/19 24 Active confirmed [id number] VITAL SIGNS Blood pressure systolic 123 mm Hg 05/23/19 24 Blood pressure diastolic 77 mm Hg 024 Height 61 in 05/23/2023 Weight 198 lbs 05/23/2023 BMI 37.41 kg/m2 05/23/2023 Encounters Encounter Location Date Provider Diagnosis [facility] [address] [place] [address] 05/23/2023 Juan Fritz DPM Neuroma of third [...]
--- OUTSIDE RECORDS SUMMARY | 2024-07-18 21:48 | XMS_ITS | Clinical Summary ---
Author Organization [facility] [address] [facility] Address [address] [place] [address] Care Team Providers Care Sales Trainee Name Role Phone Azael Howard DO Primary Care Provider +1- [phone] Allergies Active Allergy Reactions Criticality Noted Date [...] on file Legal Sex Female 8:49 AM VENEER STOCK GRADER Gender Identity Not on file Sexual Orientation Not on file Obstetrics History Last Filed Vital Signs Vital Sign Reading Time Taken Comments Blood Pressure 132/90 01/27/2023 3:57 PM VENEER STOCK GRADER Pulse 86 01/27/2023 3:57 PM VENEER STOCK GRADER Temperature 36.9 C (98.4 F) 01/27/2023 3:57 PM VENEER STOCK GRADER Respiratory Rate 18 01/27/2023 3:57 PM VENEER STOCK GRADER Oxygen Saturation 98% 01/27/2023 3:57 PM VENEER STOCK GRADER Inhaled Oxygen Concentration - - Weight 92.5 kg (204 lb) 01/27/2023 3:57 PM VENEER STOCK GRADER Height 154.9 cm (5' 1) 01/27/2023 3:57 PM VENEER STOCK GRADER Body Mass Index 38.55 01/27/2023 3:57 PM VENEER STOCK GRADER Plan of Treatment Health Maintenance Due Date [...] patient's age to complete this topic Insurance [facility] CHOICE PLUS [facility] H[facility]/PPO [place] [address] [facility] CHOICE PLUS [facility] HMO/PPO Address: [address] [address] [place] [address] Care Teams Sales Trainee Relationship Specialty Start Date End Date Azael Howard DO PCP - General Internal Medicine 04/13/19
--- NOTE | 2024-07-18 22:23 | ED.GENADULT ---
HPI - General Adult General Chief complaint: Unspecified Stated complaint: restless leg, body locking up, achilles pain Time Seen by Provider: 07/18/24 22:10 History of Present Illness HPI narrative: This is a 43-year-old female with fibromyalgia presenting for fibromyalgia flare. Patient ran out of her Cymbalta 1 week ago. She had been doing well until yesterday when she started to feel her muscles get very twitchy. It then got worse today primarily in her ankle region where she says she has a bad Achilles. This made it difficult for her to go to work. She has not called her primary care physician. She did have an episode of vomiting. She has no other symptoms at this time. Related Data Allergies Allergy/AdvReac Type Severity Reaction Status Date / Time ciprofloxacin AdvReac Unknown Nausea and Verified 07/18/24 21:46 Vomiting SOB Penicillins AdvReac Unknown Nausea and Verified 07/18/24 21:46 Vomiting SOB PMFSH Past Medical History Medical History IBS (irritable bowel syndrome) Wears glasses Weight gain Achilles tendinitis, left leg Surgical History Surgical History History of cholecystectomy H/O: hysterectomy History of foot surgery left Family History Family History Mother Diabetes mellitus COPD (chronic obstructive pulmonary disease) Emphysema lung Heart problem Arthritis Kidney disorder Grandparent Breast cancer Other Depression Heart disease High cholesterol Lung cancer Neuropathy Social History Social History Social History: caffeine-soda 12 oz daily Smoking status: Never smoker Alcohol intake: current Alcohol use details: rarely Substance use: never Substance use type: does not use Lack of Transportation: No Lack of Food: Never True Current Housing: I Have Housing Concerned About Future Housing: No Difficulty Paying Gas/Electric Bills: No Difficulty Paying for Meds: No Currently Unemployed: No Education: High School Diploma/GED Difficulty w/ Childcare or Family Care: No Gender identity (if verbalized by the patient): Female Exam Narrative: APPEARANCE: No apparent distress. Head: atraumatic. EYES: EOMI, NOSE: Atraumatic NECK: Trachea midline RESPIRATORY: No increased rate of breathing CARDIOVASCULAR: RRR, ABDOMINAL: Non-distended MUSCULOSKELETAl: Trigger points in the trapezius and along the paraspinal muscles. Tendinosis of the right Achilles with tenderness to palpation NEURO: Alert. Moving 4/4 extremities SKIN:: Warm, dry. Normal color PSYCHIATRIC: Normal affect Course Vital Signs Vital signs: Vital Signs Temperature 97.4 F L 07/18/24 21:47 Pulse Rate 80 07/18/24 21:47 Respiratory Rate 16 07/18/24 21:47 Blood Pressure 148/92 H 07/18/24 21:47 Pulse Oximetry 96 07/18/24 21:47 Oxygen Delivery Room Air 07/18/24 21:47 Temperature 97.4 F L 07/18/24 21:47 Pulse Rate 80 07/18/24 21:47 Respiratory Rate 16 07/18/24 21:47 Blood Pressure 148/92 H 07/18/24 21:47 Pulse Oximetry 96 07/18/24 21:47 Oxygen Delivery Room Air 07/18/24 21:47 Medical Decision Making MDM Narrative Medical decision making narrative: -Course: 43-year-old female fibromyalgia presenting with fibromyalgia flare after being off her Cymbalta for 1 week. Patient is requesting Zofran and a refill on her Cymbalta. This is provided. Vital signs are stable and she is well appearing overall. No other concerning history physical. She is instructed to call her primary care physician tomorrow morning. Patient returns she develops any new or worsening symptoms -DDX includes but is not limited to: Fibromyalgia, tendinitis/tendinosis Vital Signs Vital Signs: Vital Signs Temperature 97.4 F L 07/18/24 21:47 Pulse Rate 80 07/18/24 21:47 Respiratory Rate 16 07/18/24 21:47 Blood Pressure 148/92 H 07/18/24 21:47 Pulse Oximetry 96 07/18/24 21:47 Oxygen Delivery Room Air 07/18/24 21:47 Temperature 97.4 F L 07/18/24 21:47 Pulse Rate 80 07/18/24 21:47 Respiratory Rate 16 07/18/24 21:47 Blood Pressure 148/92 H 07/18/24 21:47 Pulse Oximetry 96 07/18/24 21:47 Oxygen Delivery Room Air 07/18/24 21:47 Discharge Plan Discharge Clinical Impression: Fibromyalgia, Medication refill Patient Disposition: Home Condition: Stable Instructions: Antibiotic Form, Fibromyalgia (ED) Additional Instructions: Please take her Cymbalta as directed. Please call your primary care office in the morning arrange follow-up. If you develop any new or worsening symptoms return to ED for re-evaluation. Patient Language: Japanese Prescriptions: New duloxetine [Cymbalta] 60 mg capsule,delayed release(DR/EC) 60 mg PO DAILY Qty: 14 0RF ondansetron 4 mg tablet,disintegrating 4 mg PO Q8H PRN (Reason: nausea and vomiting) Qty: 30 0RF No Action bupropion HCl [Wellbutrin XL] 300 mg tablet extended release 24 hr 300 mg PO QAM Qty: 90 1RF duloxetine [Cymbalta] 60 mg capsule,delayed release(DR/EC) 60 mg PO DAILY Qty: 90 1RF alprazolam [Xanax] 0.5 mg tablet 0.5 mg PO BID PRN (Reason: anxiety) Qty: 30 2RF Follow-up/Referrals: Azael Howard DO [Primary Care Provider] - 1 Week
--- OUTSIDE RECORDS SUMMARY | 2024-07-18 22:25 | XMS_ITS | Referral Summary ---
Author Organization [facility] Address [address] [place] [address] Care Team Providers Care Poultry Farmer Name Role Phone Azael Howard DO Primary Care Provider [phone] Allergies Active Allergy Reactions Criticality Noted Date [...] on file Legal Sex Female 8:49 AM BACK CLOSER Gender Identity Not on file Sexual Orientation Not on file Last Filed Vital Signs Vital Sign Reading Time Taken Comments Blood Pressure 132/90 01/27/2023 3:57 PM BACK CLOSER Pulse 86 01/27/2023 3:57 PM BACK CLOSER Temperature 36.9 C (98.4 F) 01/27/2023 3:57 PM BACK CLOSER Respiratory Rate 18 01/27/2023 3:57 PM BACK CLOSER Oxygen Saturation 98% 01/27/2023 3:57 PM BACK CLOSER Inhaled Oxygen Concentration - - Weight 92.5 kg (204 lb) 01/27/2023 3:57 PM BACK CLOSER Height 154.9 cm (5' 1) 01/27/2023 3:57 PM BACK CLOSER Body Mass Index 38.55 01/27/2023 3:57 PM BACK CLOSER Plan of Treatment Not on file Insurance [facility] Care Teams Poultry Farmer Relationship Specialty Start Date End Date Azael Howard DO PCP - General Internal Medicine 04/13/19
--- OUTSIDE RECORDS SUMMARY | 2024-07-18 22:25 | XMS_ITS | Clinical Summary ---
Author Organization [facility] Address [address] [place] [address] Care Team Providers Care [employer] Worker Name Role Phone Azael Howard DO Primary Care Provider [phone] Source Comments [facility],non-owned Affiliates and Associated Physician Practices is amultiple site organization consisting of ambulatory clinics and hospital sitesin [place], [place], [place] and [place]. This disclosure is being madepursuant to the Care Everywhere program and may not contain all information available regarding this patient. Last updated 17.[facility] Allergies Active Allergy Reactions Criticality Noted [...] patient's age to complete this topic Insurance [facility] MEDICAID - OUT OF STATE Care Teams [employer] Worker Relationship Specialty Start Date End Date Azael Howard DO PCP - General Internal Medicine 09/05/13
--- OUTSIDE RECORDS SUMMARY | 2024-07-18 22:25 | XMS_ITS | Clinical Summary ---
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 Gender Identity Not on file Sexual Orientation Not on file Obstetrics History Last Filed Vital Signs Vital Sign Reading Time Taken Comments Blood Pressure 132/90 01/27/2023 3:57 PM LAUNDRY SUPERVISOR Pulse 86 01/27/2023 3:57 PM LAUNDRY SUPERVISOR Temperature 36.9 C (98.4 F) 01/27/2023 3:57 PM LAUNDRY SUPERVISOR Respiratory Rate 18 01/27/2023 3:57 PM LAUNDRY SUPERVISOR Oxygen Saturation 98% 01/27/2023 3:57 PM LAUNDRY SUPERVISOR Inhaled Oxygen Concentration - - Weight 92.5 kg (204 lb) 01/27/2023 3:57 PM LAUNDRY SUPERVISOR Height 154.9 cm (5' 1) 01/27/2023 3:57 PM LAUNDRY SUPERVISOR Body Mass Index 38.55 01/27/2023 3:57 PM LAUNDRY SUPERVISOR Plan of Treatment Health Maintenance Due Date [...] patient's age to complete this topic Insurance [facility] CHOICE PLUS [facility] H[facility]/PPO Address: [place] [address] [facility] CHOICE PLUS [facility] HMO/PPO Address: [address] [address] [place] [address] Care Teams Butter Liquefier Relationship Specialty Start Date End Date Azael Howard DO PCP - General Internal Medicine 04/13/19
--- OUTSIDE RECORDS SUMMARY | 2024-07-18 22:25 | XMS_ITS | Clinical Summary ---
Author Organization [facility] Address [address] [place] [address] Phone Care Team Providers Care Director Of Emergency Nursing Name Role Phone Azael Howard DO Primary [...] be contacted. Simon Munoz M.D. bs/:09/30/2016 15:18:15 Cnc Specialist: Valentina Ceron (Suki), [facility] letter sent: Additional Imaging Reading location: [facility] BI-RADS: 0 Additional Imaging Evaluation Needed [...] be contacted. Simon Munoz M.D. bs/:09/30/2016 15:18:15 Cnc Specialist: Valentina Ceron (R), [facility] letter sent: Additional Imaging Reading location: [facility] BI-RADS: 0 Additional Imaging Evaluation Needed us Bethany Rachel MD IMG MAMMO ORDERABLES Final Re sult from Last 3 Months or Most Recently Relevant to Health Maintenance Care Teams Director Of Emergency Nursing Relationship Specialty Start Date End Date Azael Howard DO [facility] [place] [address] PCP - General Internal Medicine 12/31/15
[2024-07-18] MEDS: ONDANSETRON HCL ODT 4 MG TABLET PO (22:27)
--- NOTE | 2024-07-18 22:30 | PC.NURSE ---
pharmacy to send dose of jitendraalta
[2024-07-18] MEDS: DULoxetine HCL 60 MG CAPSULE.DR PO (22:54)
[2024-07-18 22:59] VITALS: BP 141/89; PULSE 77; RESP 20; TEMP 36.6; O2SAT 98
== END 2024-07-18 23:00 | disposition home or self-care (01) ==
PROVIDERS: Emergency Provider Emergency Medicine; PCP Internal Medicine
DX: M79.7 Fibromyalgia (principal); Z76.0 Encounter for issue of repeat prescription; K58.9 Irritable bowel syndrome, unspecified; Z90.49 Acquired absence of other specified parts of digestive tract; Z90.710 Acquired absence of both cervix and uterus
CPT/HCPCS: 96374; 99284; A9270

== ENCOUNTER 2024-10-02 09:30 | Outpatient (CLI) | payer OTHER, SELFPAY ==
--- NOTE | ~2024-10-02 | MMUS_ITS ---
EXAMINATION: MM diagnostic sandra RT w [facility], US breast RT limited INDICATION: 44-year old female; 6 month follow up probably benign mass in the right breast, initially evaluated on 04/03/2024. COMPARISON: 04/03/2024 through 08/15/2019. TECHNIQUE: Right breast Digital breast tomosynthesis ML, CC and MLO views were obtained with computer-aided detection to assist in interpretation of the study. MAMMOGRAM FINDINGS: There are scattered areas of fibroglandular density. The previously identified mass of concern in the lower central right breast at middle third is not seen on this examination. No other focal dominant mass, architectural distortion, or suspicious microcalcifications are identified. RIGHT BREAST ULTRASOUND FINDING: Targeted ultrasound at the area of concern was completed. Previously seen mass at 7:00 position have completely resolved in the interval compatible with a benign lesion. IMPRESSION: Benign mammogram. No evidence of malignancy in right breast. RECOMMEND: Routine screening in 6 months. BI-RADS 2, BENIGN Reviewed, dictated and finalized at location B. IMPRESSION: Benign mammogram. No evidence of malignancy in right breast. RECOMMEND: Routine screening in 6 months. BI-RADS 2, BENIGN
== END 2024-10-02 09:31 | disposition home or self-care (01) ==
LOC: MICIMG 09:32
PROVIDERS: PCP Internal Medicine; Visit Provider Clinical Nurse Specialist
DX: N63.10 Unspecified lump in the right breast, unspecified quadrant (principal)
CPT/HCPCS: 76642; 77061; 77065; G0279

== ENCOUNTER 2024-11-12 11:05 | Outpatient (CLI) | payer OTHER, SELFPAY ==
--- NOTE | ~2024-11-12 | XR_ITS ---
XR lumbar spine 2-3V Indication: Low back pain x 1 year, checking for arthritis Comparison: None Findings: The vertebral heights are intact. No fracture or subluxation. The disc heights are intact. Soft tissues unremarkable Impression: No acute abnormality. Reviewed, dictated and finalized at location P. Impression: No acute abnormality.
--- NOTE | ~2024-11-12 | XR_ITS ---
EXAMINATION: XR knee LT 3V, 11/12/2024 11:29 CDT HISTORY: Pain in left knee x 1 year, checking for arthritis COMPARISON: No comparisons available. Findings: No acute fracture or malalignment. No significant degenerative changes. Soft tissues unremarkable. Impression: No acute fracture or malalignment. Reviewed, dictated and finalized at location P. Impression: No acute fracture or malalignment.
== END 2024-11-12 11:06 | disposition home or self-care (01) ==
LOC: GOSHIMG 11:06
PROVIDERS: PCP Internal Medicine; Visit Provider Clinical Nurse Specialist
DX: M25.562 Pain in left knee (principal); M54.50 Low back pain, unspecified
CPT/HCPCS: 72100; 73562

== ENCOUNTER 2024-11-16 09:22 | Outpatient (CLI) | payer OTHER, SELFPAY ==
--- NOTE | ~2024-11-16 | XR_ITS ---
EXAMINATION: XR wrist LT 2V, 11/16/2024 9:50 CDT HISTORY: Pain in joints of right hand, fell of ladder this week COMPARISON: No comparisons available. Findings: No acute fracture or malalignment. No significant degenerative changes. Soft tissues unremarkable. Impression: No acute fracture or malalignment. Reviewed, dictated and finalized at location P. Impression: No acute fracture or malalignment.
--- NOTE | ~2024-11-16 | XR_ITS ---
EXAMINATION: XR hand BI arthritis min 3V, 11/16/2024 9:50 CDT HISTORY: Pain in joints of right hand, fell off ladder this week COMPARISON: No comparisons available. Findings: No acute fracture or malalignment. No significant degenerative changes. Soft tissues unremarkable. Impression: No acute fracture or malalignment. Reviewed, dictated and finalized at location P. Impression: No acute fracture or malalignment.
--- NOTE | ~2024-11-16 | XR_ITS ---
EXAMINATION: XR wrist RT 2V, 11/16/2024 9:50 CDT HISTORY: Pain in joints of right hand, fell off ladder this week COMPARISON: No comparisons available. Findings: No acute fracture or malalignment. No significant degenerative changes. Soft tissues unremarkable. Impression: No acute fracture or malalignment. Reviewed, dictated and finalized at location P. Impression: No acute fracture or malalignment.
== END 2024-11-16 09:23 | disposition home or self-care (01) ==
LOC: GOSHIMG 09:24
PROVIDERS: PCP Internal Medicine; Visit Provider Internal Medicine
DX: M25.541 Pain in joints of right hand (principal); M25.542 Pain in joints of left hand; M25.531 Pain in right wrist; M25.532 Pain in left wrist
CPT/HCPCS: 73100; 73130

== ENCOUNTER 2024-12-05 08:10 | Outpatient (CLI) | payer OTHER, SELFPAY ==
--- OUTSIDE RECORDS SUMMARY | 2024-11-21 10:15 | XMS_ITS ---
Author Organization [facility] Address [address] [place] [address] Care Team Providers Care Spa Consultant Name Role Phone Tracy Rosen Primary Care Provider Unavailabl melissa Layla Han [phone] REASON FOR VISIT abnormal labs Encounters Encounter Location Date Provider Diagnosis [facility] [address] [place] [address] 11/21/2024 Layla Han Plan Of Treatment No Information Progress Notes * Hodan MANaDOB:1980 ( 44 yo F)Acc No.[id number]:11/21/2024 Progress Notes Patient: Jin LOPEZ Appointment Provider: Titus HAN MD :1980 A ge:44 Y S ex:Female Date:11/21/2024 Address:[address] [place], [place] [id number] Pcp:Tracy Rosen Subjective: * Chief Complaints: * 1 . Abnormal labs. * HPI: j oint pain: saw rheum at [place] fo rpositive FERMIN, told flse positive 11/12/24, left knee Xray - normal, lumbar spine - normal 09/07/24, FERMIN 1:80 (homogeneous), SCL 70 1.0 (<1), DNA (-), SM/SUPERVISING LIBRARIAN (-), SSA/SSB (- ), RF (-), ESR 19, CRP 11.6 (<8.0), CBC normal, CMP normal, vit D 29, TSH normal. * Medical History: p ositive FERMIN, fibromyalgia, recurrent otitis media, tympanosclerosis, hearing loss, renal cyst, IBS, anxiety. * Surgical History: h ysterectomy, cholecystectomy, foot surgery . * Family History: diabetes, COPD, heart disease, breast cancer, depression, lung cancer, kidney disease. Objective: * Vitals: Assessment: Plan: * Treatment: * Billing Information: * Visit Code: * Procedure Codes: * Electronic signature of Layla Han MD on 12/05/2024 at 08:21 AM CDT Sign off status: Pending * Appointment Provider: Titus HAN MD Date: Generated for Fiordaliza pennington/Amy/Ashanti on: 08:21 AM CDT History and Physical Notes * HPI (History of Present Illness) Category Sub-Category Detail Notes Category Not es joint pain saw rheum at [place] fo rpositive FERMIN, told flse positive 11/12/24, left knee Xray - normal, lumbar spine - normal 09/07/24, FERMIN 1:80 (homogeneous), SCL 70 1.0 (<1), DNA (-), SM/SUPERVISING LIBRARIAN (-), SSA/SSB (-), RF (-), ESR 19, CRP 11.6 (<8.0), CBC normal, CMP normal, vit D 29, TSH normal
--- OUTSIDE RECORDS SUMMARY | 2024-12-05 08:21 | XMS_ITS | Clinical Summary ---
Author Organization [facility] Address [address] [place] [address] Phone Care Team Providers Care Manager Language Name Role Phone Azael Howard DO Primary [...] of 3 - 19+ 3-dose series) 08/11/1998 Human Papillomavirus (HPV) Immunization (1 - 3-dose SCDM series) 08/11/2006 Cologuard 08/11/2024 Colonoscopy 08/11/2024 11/21/2012 Colorectal Cancer Screening 08/11/2024 Immunochemical Fecal Occult Blood 08/11/2024 Influenza Immunization (#1) 2024 SARS-COV-2 Immunization ( season) 2024 Respiratory Syncytial Virus (RSV) Immunization (Adult) [...] PM CDT Lump or mass in breast HM COLONOSCOPY Routine 11/21/2012 from Last 3 Months or Most Recently [...] be contacted. Simon Munoz M.D. bs/:09/30/2016 15:18:15 Occupational Health Nurse Supervisor: Valentina Ceron (R), [facility] letter sent: Additional Imaging Reading location: [facility] BI-RADS: 0 Additional Imaging Evaluation Needed Procedure [...] be contacted. Simon Munoz M.D. bs/:09/30/2016 15:18:15 Occupational Health Nurse Supervisor: Valentina Ceron (R), [facility] letter sent: Additional Imaging Reading location: [facility] BI-RADS: 0 Additional Imaging Evaluation Needed us Bethany Rachel MD IMG MAMMO ORDERABLES Final Re sult * HM COLONOSCOPY (11/21/2012) us Geovany Villalobos MD PROCEDURE/MINOR SURGICAL ORDERAB LES Final Result from Last 3 Months or Most Recently Relevant to Health Maintenance Care Teams Manager Language Relationship Specialty Start Date End Date Azael Howard DO [address] [facility] [place] [address] PCP - General Internal Medicine 12/31/15
--- OUTSIDE RECORDS SUMMARY | 2024-12-05 08:21 | XMS_ITS | Clinical Summary ---
Author Organization [facility] Address [address] [place] [address] Care Team Providers Care Agri Business Agent Name Role Phone Unavailable Primary Care Provider [...] 30 to 64) Every 3 Years 1979 Colorectal Cancer Screening Colonoscopy (10 Years) 1980 Annual Physical 08/11/1982 Hepatitis C 08/11/1997 DTaP, Tdap and Td Vaccines ( 1 - Tdap) 08/11/1998 Hepatitis B Vaccines (1 of 3 - 19+ 3-dose series) 08/11/1998 HPV Vaccines (1 - 3-dose SCD M series) 08/11/2006 Cervical Cancer Screening Pa p with HPV Testing (Age 30 to 64) Every 5 Years 08/11/2009 Cervical Cancer Screening with HPV 08/11/2009 Mammogram Screening 2019 COVID-19 Vaccine (2024-2 6 season) 2024 Influenza Adult (#1) 2024 Hepatitis A Vaccines Aged Out No long er eligible based on patient's age to complete this topic Meningococcal B Vaccine Aged Out No l onger eligible based on patient's age to complete this topic Meningococcal Vaccine Aged Out No sophia ayan eligible based on patient's age to complete this topic Pneumococcal Vaccine: Pediat rics (0 to 5 Years) and At-Risk Patients (6 to 49 Years) Aged Out No longer eligible b ased on patient's age to complete this topic RSV Immunizations Under 20 Months Aged Out No longer eligible based on patient's age to complete this topic
--- OUTSIDE RECORDS SUMMARY | 2024-12-05 08:21 | XMS_ITS | Clinical Summary ---
Author Organization [facility] Address [address] [place] [address] Care Team Providers Care Data Modeling Specialist Name Role Phone Azael Howard DO Primary Care Provider [phone] Source Comments [facility],non-owned Affiliates and Associated Physician Practices is amultiple site organization consisting of ambulatory clinics and hospital sitesin [place], [place], [place] and [place]. This disclosure is being madepursuant to the Care Everywhere program and may not contain all information available regarding this patient. Last updated 17.[facility] Scaleform Allergies Active Allergy Reactions Criticality Noted Date Comments Ciprofloxacin Rash Low 09/07/2013 vomiting Penicillins Rash Low 09/07/2013 vomiting Medications * Be aware that medications may not be up to date on this document. Alwaysverify current medications with the patient. ondansetron, disintegrating, (Zofran ODT) 4 MG tablet DISSOLVE 1 TABLET ON THE TONGUE EVERY 8 HOURS NEEDED FOR NAUSEA OR VOMITING 5 Active buPROPion XL 24hr (Wellbutrin-XL) 300 MG tablet Take 1 (one) tablet by mouth every morning 5 Active DULoxetine (Cymbalta) 60 MG capsule Take 1 (one) capsule by mouth once daily 5 Active ALPRAZolam (Xanax) 0.5 MG tablet Take 1 (one) tablet by mouth 3 times daily as needed for Anxiety Active amitriptyline (ELAVIL) 25 MG tablet Take 25 mg by mouth at bedtime. 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 homogeneous, with negative anti-DNA antibody 11/06/2024 Assessment & Plan (11/06/2024 4:34 PM CDT): By itself, a positive FERMIN test does not indicate the presence of an autoimmune disease or the need for therapy. Approximately 15% of the normal population will have a positive FERMIN test;and can also be seen in other conditions, such as thyroid diseases, viral infections or caused by some medications. The finding of a positive antinuclear antibody (FERMIN), especially with a low pretest probability for an associated connective tissue disease, is currently considered to be of undetermined clinical significance (often referred to as a false positive result) with her historical elements/symptoms reviewed, current clinical examination findings, and additional available laboratory results reviewed, regarding this result not consistent with a specific diagnosis of a defined systemic connective tissue disease including systemic lupus erythematosus or systemic inflammatory rheumatic disorder by [employer] (ACR) diagnostic classification criteria at this time. Jin lacks features of any systemic autoimmune FERMIN-related connective tissue disease. FERMIN positivity is present in up to 30% of the normal population . Since the prevalence of SLE is only ~0.1%, most positive FERMIN results can be attributed to other etiologies or considered represent f alse-positive results. FERMIN positivity increases in prevalence with female gender, older age, and numerous other conditions. Antinuclear antibody overview: A test for antinuclear antibodies (FERMIN) is common in people who are suspected of having an autoimmune or systemic connective tissue disease disorder. Antibodies are proteins that are made as part of the immune response. The result of an FERMIN test may be used in 1 or more ways: To aid in diagnosis of an autoimmune or connective tissue disease disorder, to rule out autoimmune or connective tissue disease disorders in people presenting only with a few symptoms, to measure disease activity, and order to determine the specific type of disease that affects the patient. Of people with the following disorders or characteristics may have positive FERMIN test results including systemic lupus erythematosus, scleroderma, mixed connective tissue disease, polymyositis/dermatomyositis, rheumatoid arthritis, rheumatoid vasculitis, Sjogren syndrome, drug-induced lupus, discoid lupus, possibly articular juvenile chronic idiopathic arthritis or ANCA related vasculitic syndromes. In addition, some people with autoimmune diseases that affect the gastrointestinal tract, thyroid gland, liver, or lung (including Imtiaz's thyroiditis, Graves disease, autoimmune hepatitis, primary biliary cirrhosis, primary autoimmune cholangitis, inflammatory bowel disease including Crohn's disease or ulcerative colitis, and idiopathic pulmonary arterial hypertension) can have a positive FERMIN test. Additionally, certain chronic infectious diseases, such as mononucleosis/EBV, hepatitis C virus infection, subacute bacterial endocarditis, tuberculosis, lymphoproliferative diseases, and human immunodeficiency virus (HIV) may also produce a positive FERMIN test. As such, a positive FERMIN does not necessarily mean that the person has lupus or another systemic connective tissue disease disorder. As noted earlier, many healthy people may have a positive FERMIN test. The FERMIN test is said to be a f alse positive test result when a person test positive but does not have any other features of autoimmune disease. This situation occurs more often in women and elderly people especially when tested in individuals with a low pretest probability for systemic lupus erythematosus or other systemic rheumatic connective tissue disease. Certain medications also may increase the chance of having a positive FERMIN test which may or may not represent a drug-induced lupus type syndrome. Depending on the symptoms that led to the initial FERMIN screening testing may be necessary and ordered for further evaluation may or may not be recommended for 1 or more of the disorders that can be associated with a positive FERMIN. Fibromyalgia 11/06/2024 Assessment & Plan (11/06/2024 4:19 PM CDT): I discussed the approach to the clinical diagnosis of a fibromyalgia syndrome as a cause for chronic musculoskeletal pain. I do not provide long-term care for the treatment of fibromyalgia and I have suggested that Jin Man follow-up with her primary care provider/physician for any additional needed long-term treatment approach recommendations that may be of benefit for relief of symptoms related to this non-inflammatory hypersensitivity pain disorder. I strongly encourage the avoidance of opiate analgesic medication (narcotics), as well as benzodiazepines, in the treatment of fibromyalgia associated pain given their potential risk for serious side effects and/or dependency issues and opiate induced hyperalgesia (use of group home opiate/narcotic actually causing more pain rather than less) that can be associated with such use. Jin Man might be a good candidate for a trial of gabapentin, amitriptyline, nortriptyline, trazodone, desipramine or cyclobenzaprine taken at low dose taken at bedtime if needed to improve restorative sleep quality and may also help to reduce pain symptoms if not yet tried and not contraindicated. Additionally, the use of gabapentin or other available FDA approved medications for the treatment of fibromyalgia including Cymbalta (duloxetine), Lyrica (pregabalin), or Savella could be considered for future symptomatic pain treatment if not previously tried and without contraindication to use but will defer group home treatment management decisions to her primary care provider/physician for future treatment consideration of this type of a non-inflammatory chronic pain syndrome. I would also strongly encourage non pharmacologic interventions, including working with a pain psychologist trained in cognitive behavioral therapy such is relaxation techniques, biofeedback and visual imagery that can also be helpful, as well as aerobic conditioning exercise in the treatment of this type of non-inflammatory chronic pain condition. Jin Man was provided additional written information regarding fibromyalgia for further educational information. Refer to literature from Migue Waterman MD, [facility], [facility], on the use of compounded low dose naltrexone in the treatment of fibromyalgia related pain ( A state pilot study found that low-dose naltrexone reduced pain more than placebo (29 versus 18 percent). Low-dose naltrexone was also associated with improved general satisfaction with life and with improved mood but was not associated with improved fatigue or sleep). Check with local area compounding pharmacy (chiu per month prescription usually $40-45 and insurance does not cover the cost of most compounded prescriptions. Mail order compounding pharmacies including [facility] in [place] ([phone]) may also be a lower cost service to provide this type of compounded low dose naltrexone (3-6 mg bedtime dosing). Fibromyalgia is a painful condition that is not completely understood by medical experts. The cause of fibromyalgia is not known. A person may feel tired and ache all over. It causes tender spots on the body that hurt only when pressed upon. A patient may have trouble sleeping, as well as other symptoms. These problems can upset work and home life. Symptoms tend to come and go, although they may never go away completely. Fibromyalgia does not harm the muscles, joints or organs or cause any permanent deformity or disability in the body. Fibromyalgia syndrome is characterized by generalized noninflammatory pain and is associated with long-standing pain that may come and go and be variable or at time persistently contant. The pain may be located in the soft tissues including tendons or muscles or joints. The pain can occur in any of the extremities and also be felt along the spine or torso. This is the reason some people feel that they have arthritis. Other unusual symptoms that may suggest an underlying neurologic disorder have also been described in patients with fibromyalgia including numbness and tingling type sensations and shooting pains. Patients often describe fatigue and may awaken with non restorative sleep quality. The condition can occur in men or women in any age but is most common in women routine the ages of 20 in 50. There is no specific test used that can confirm the diagnosis of fibromyalgia and is considered a diagnosis of exclusion where by other conditions need to be excluded and this may or may not require additional test to be performed. The current nature of fibromyalgia seems to suggest that this syndrome represents a disorder of increased sensitivity in pain perception or so-called central pain amplification. Unfortunately, the exact cause of this disorder still remains elusive and unknown and limits the treatment to symptom relief without any known cure at this time. Elevated C-reactive protein (CRP) 11/06/2024 Assessment & Plan (11/06/2024 4:20 PM CDT): CRP levels that are truly normal or clinically innocuous is not known. CRP levels vary somewhat with age, sex, and race and furthermore there is no uniformity in the units and sensitivity that are used to report CRP levels; some laboratories report CRP concentrations as mg/dL while others employ mg/L. Although CRP is a sensitive indicator of inflammation, it is not specific for our traditional concept of inflammation, especially at relatively low levels which may reflect minor degrees of inflammation, such as that seen in periodontitis, but may also reflect low-grade inflammatory states in conditions in which there are minor degrees of metabolic dysfunction, such as obesity and insulin resistance. (Reference: Up-to-date online) Loud snoring 11/06/2024 Assessment & Plan (11/06/2024 4:36 PM CDT): Assessment: - Fatigue, wakes not feeling rested - Family reports loud snoring, occasionally gasps or short periods of not breathing Plan: - Follow up with PCP to discuss referral to sleep medicine, work-up for possible sleep apnea Encounters Date Type Department Care Team Description 11/06/2024 3:20 PM CDT Office Visit [facility] [address], [address] [place] [id number] Rob Sommers DO Fibromyalgia (Primary Dx); Myalgia; Elevated C-reactive protein (CRP); False positive antinuclear antibody (FERMIN) level, 1:80. homogeneous, with negative anti-DNA antibody; Loud snoring 09/27/2024 Transcribe Orders [facility] [address], [address] [place] [id number] Group, [facility] Myalgia ; Elevated C-reactive protein (CRP) from Last 3 Months Social History Tobacco Use Types Packs/Day Years [...] Sign Reading Time Taken Comments Blood Pressure 142/80 11/06/2024 3:10 PM CDT Pulse 93 11/06/2024 3:10 PM CDT Temperature 37 C (98.6 F) 06/16/2017 2:26 PM CDT Respiratory Rate - - Oxygen Saturation 97% 11/06/2024 3:10 PM CDT Inhaled Oxygen Concentration - - Weight 95.3 kg (210 lb) 11/06/2024 3:10 PM CDT Height 160 cm (5' 3) 11/06/2024 3:10 PM CDT Body Mass Index 37.2 11/06/2024 3:10 PM CDT Plan of Treatment Health Maintenance Due Date Last Done Comments COLOGUARD (AGES 45-75) - COL ON CA SCREENING 1979 COLON MONITORING 1979 COLONOSCOPY - COLON CA SCREENING 1979 CT COLONOGRAPHY - COLON CA SCREENING 1979 Colorectal Cancer Screening 1979 FIT - COLON CA SCREENING 1979 FLEX SIG - COLON CA SCREENING 1979 LIPID TESTING 1979 HIV SCREENING 08/11/1994 HEPATITIS C SCREENING 08/07/1997 DTAP/TDAP/TD VACCINES (1 - Tdap) 08/11/1998 HEPATITIS B VACCINE (1 of 3 - 19+ 3-dose series) 08/11/1998 HPV VACCINE (1 - 3-dose SCDM series) 08/11/2006 MAMMOGRAM 09/30/2018 09/30/2016, 09/30/2016 DEPRESSION SCREENING 02/08/2024 COVID-19 VACCINE (1 - 2023-2 5 season) 2024 INFLUENZA VACCINE (#1) 2024 SCREENING FOR DIABETES 11/06/2024 ZOSTER VACCINE (1 of 2) 08/11/2029 HIB VACCINE Aged Out No longer eligi ble based on patient's age to complete this topic MENINGOCOCCAL (Group B) VACCINE SHARED DECISION-MAKING Aged Out No longer eligible based on patient's age to complete this topic MENINGOCOCCAL GROUPS A/C/Y/W VACCINE Aged Out No longer eligible b ased on patient's age to complete this topic PNEUMOCOCCAL VACCINE Aged Out No long er eligible based on patient's age to complete this topic Insurance [facility] MEDICAID - OUT OF STATE Care Teams Data Modeling Specialist Relationship Specialty Start Date End Date Azael Howard DO PCP - General Internal Medicine 09/05/13
--- OUTSIDE RECORDS SUMMARY | 2024-12-05 08:21 | XMS_ITS | Patient Health Record ---
Author Organization [facility] Address [address] [place] [address] Care Team Providers Care Textile Pin Worker Name Role Phone EfremAzael dolan Primary Care Provider Juan Bradley DPM Unavailable [phone] ALLERGIES Allergen (clinical drug ingredient) Drug/Non Drug [...] lower limb (G57.82) 05/23/19 24 Active confirmed [id number] Problem Metatarsalgia, left foot (M77.42) 05/23/19 24 Active confirmed [id number] PLAN OF TREATMENT No Information Insurance Providers Payer Name Payer Address Payer Phone Subscriber Number Group Number Insured Name Patient Relationship to Insured Coverage Start Date Coverage End Date [facility] [address] [address] [place] [phone] [id number] Jin Man Self - patient is the insured MEDICAL (GENERAL) HISTORY Medical History History ICD Code depression irritable bowel syndrome neuropathy Surgical History Surgery Date(Month/Year) hysterectomy 07/2009 left achilles tendon repair 02/2017 gallbladder 2013
--- OUTSIDE RECORDS SUMMARY | 2024-12-05 08:21 | XMS_ITS | Clinical Summary ---
Author Organization [facility] [address] [facility] Address [address] [place] [address] Care Team Providers Care Gang Mower Operator Name Role Phone Azael Howard DO [...] on file Legal Sex Female 8:49 AM ACCOUNT CONTACT ASSOCIATE Gender Identity Not on file Sexual Orientation Not on file Obstetrics History Last Filed Vital Signs Vital Sign Reading Time Taken Comments Blood Pressure 132/90 01/27/2023 3:57 PM ACCOUNT CONTACT ASSOCIATE Pulse 86 01/27/2023 3:57 PM ACCOUNT CONTACT ASSOCIATE Temperature 36.9 C (98.4 F) 01/27/2023 3:57 PM ACCOUNT CONTACT ASSOCIATE Respiratory Rate 18 01/27/2023 3:57 PM ACCOUNT CONTACT ASSOCIATE Oxygen Saturation 98% 01/27/2023 3:57 PM ACCOUNT CONTACT ASSOCIATE Inhaled Oxygen Concentration - - Weight 92.5 kg (204 lb) 01/27/2023 3:57 PM ACCOUNT CONTACT ASSOCIATE Height 154.9 cm (5' 1) 01/27/2023 3:57 PM ACCOUNT CONTACT ASSOCIATE Body Mass Index 38.55 01/27/2023 3:57 PM ACCOUNT CONTACT ASSOCIATE Plan of Treatment Health Maintenance Due Date Last Done Comments Breast Cancer Screening-Mammogram 1979 Colon Cancer Screening-Colonoscopy 1979 Depression Screening 1979 Hepatitis C Screening 1979 DTaP/Tdap/Td Vaccine (1 - Tdap) 08/11/1990 Varicella Vaccines (1 of 2 - 13+ 2-dose series) 08/11/1992 Hepatitis B Screening 08/11/1997 Regular Well Visit/Exam 18-64 08/11/1997 HPV Vaccines (1 - 3-dose SCD M series) 08/11/2006 Influenza Vaccine (#1) 2024 Pneumococcal vaccine <65 Aged Out No longer eligible based on patient's age to complete this topic Insurance [facility] CHO[facility] PLUS [facility] CHO[facility] PL[facility] Care Teams Gang Mower Operator Relationship Specialty Start Date End Date Azael Howard DO PCP - General Internal Medicine 04/13/19
--- OUTSIDE RECORDS SUMMARY | 2024-12-05 08:22 | XMS_ITS | Patient Health Record ---
Author Organization [facility] Address [address] [place] [address] Care Team Providers Care Meat Service Team Member Name Role Phone Tracy Rosen Primary Care Provider Layla Coates [phone] Reason For Referral No Information Encounters Encounter Location Date Provider Diagnosis [facility] [address] [place] [address] 11/12/2024 Layla Francisco Plan Of Treatment No Information Insurance Providers Payer Name Payer Address Payer Phone Subscriber Number Group Number Insured Name Patient Relationship to Insured Coverage Start Date Coverage End Date [facility] [employer] [address] [address] [place] [address] [id number] Jin Man Self - patient is the insured Medical (General) History Medical History History ICD Code positive FERMIN, fibromyalgia, recurrent otitis media, tympanosclerosis, hearing loss, renal cyst, IBS, anxiety Surgical History Surgery Date(Month/Year) hysterectomy, cholecystectomy, foot surg ajay
[2024-12-19 14:22] VITALS: BMI 39.2
--- NOTE | 2024-12-19 14:22 | P.SLEEP_ITS ---
Sleep Study - Home Unattended Date of Study: 12/05/24 Ordering Provider: Tracy Rosen APRN Interpreting Provider: Batool De La Garza, DO Home Sleep Study Type: Watch PAT Height: 1.55 m Weight: 94.347 kg Body Mass Index: 39.2 Neck Circumference (inches): 14 [place]: 11 Reason for Sleep Study Daytime hypersomnia Sleep History The patient is a 44-year-old female that had a sleep study ordered by her primary care for evaluation of sleep apnea. The patient admits to snoring loudly, excessive daytime sleepiness, interruptions in breathing while asleep, trouble falling asleep, trouble staying asleep and unwanted behaviors during sleep. She does have difficulty returning to sleep if she wakes up throughout the night. She denies any hypnotic or sedative use. She does feel anxious about sleep. She does feel tired or sleepy during the day. She does feel tired in the morning. She does have the urge to fall asleep during the day. She does feel drowsy while driving. She does choke or gasp at night. She does have trouble breathing on her back. She does have morning headaches. She does have a dry or sore mouth / throat in the morning. She denies nocturnal heartburn. She urinates more than 3 times throughout the night. She denies sleep paralysis, cataplexy and hypnagogic/ hypnopompic hallucinations. She does clench or grind her teeth. She does kick her jerk her legs excessively. She does have a restless feeling in her legs that causes an urge to move her legs. It is worse with rest and better with activity. It is predominantly in the evening and it does cause a disturbance in her sleep. She goes to bed at 1:00 a.m. on work days and at 2:00 a.m. on her days off. It takes her 1 hour to fall asleep. Her sleep is not restorative on her days off. She denies taking any planned naps. She does act out her dreams. She denies sleep walking. She consumes 1-2 cups of caffeinated beverage per day. She denies tobacco and alcohol use. She does exercise 1-2 nights per week. [facility] Past Medical History Medical History Encounter for screening mammogram for breast cancer Fibromyalgia Myalgia Recurrent otitis media Tympanosclerosis involving tympanic membrane only Healed perforation of tympanic membrane of both ears Mixed hearing loss, bilateral Hemoperitoneum Renal lesion Renal cyst Abnormal mammogram of right breast Adnexal cyst Moderate ankle sprain Bilateral foot pain Right hip pain Right shoulder pain Numbness and tingling Rash Atypical nevi Achilles tendonitis Arthritis of left knee IBS (irritable bowel syndrome) Wears glasses Weight gain Achilles tendinitis, left leg Surgical History Surgical History History of cholecystectomy H/O: hysterectomy History of foot surgery left Family History Family History Mother Diabetes mellitus COPD (chronic obstructive pulmonary disease) Emphysema lung Heart problem Arthritis Kidney disorder Grandparent Breast cancer Other Depression Heart disease High cholesterol Lung cancer Neuropathy Social History Social History Social History: caffeine-soda 12 oz daily Smoking status: Never smoker Alcohol intake: current Alcohol use details: rarely Substance use: never Substance use type: does not use Lack of Transportation: No Lack of Food: Never True Current Housing: I Have Housing Concerned About Future Housing: No Difficulty Paying Gas/Electric Bills: No Difficulty Paying for Meds: No Currently Unemployed: No Education: High School Diploma/GED Difficulty w/ Childcare or Family Care: No Gender identity (if verbalized by the patient): Female Medications Home Medications ?Medication ?Instructions ?Recorded ?Confirmed ?Type ondansetron 4 mg disintegrating 4 mg PO Q8H PRN nausea and 07/18/24 11/12/24 Rx tablet vomiting #30 tabs alprazolam 0.5 mg tablet (Xanax) 0.5 mg PO BID PRN anx iety #30 tabs 09/24/24 11/12/24 Rx duloxetine 30 mg capsule,delayed 30 mg PO DAILY #90 ca ps 11/13/24 Rx release duloxetine 60 mg capsule,delayed 60 mg PO DAILY #90 ca ps 11/13/24 Rx release bupropion HCl 300 mg 24 hr tablet, 300 mg PO QAM #90 t abs 11/19/24 Rx extended release (Wellbutrin XL) gabapentin 300 mg capsule 300 mg PO QHS #30 caps 11/19 Rx Sleep Procedure The sleep study was completed using [employer] a technically adequate device with seven channels: peripheral arterial tone, actigraphy, body position, snore, respiratory movement, pulse oximetry, sleep staging, and heart rate. Prior to using the device, the patient received verbal and written instructions for its application and was provided with the help desk phone number for additional telephonic instruction with 24-hour availability of qualified personnel to answer questions. The study was scored using CMS guidelines. Sleep Architecture The total recording time is 6 hrs, 4 min. The total sleep time is 4 hrs, 50 min. Sleep latency is 6 minutes. REM latency is 173 minutes. The patient had 9 episodes of waking. Sleep architecture shows 29.6% deep sleep, 50.4% light sleep, and (as % Total Sleep Time) showed NREM (Light 50.4%; Deep 29.6%), and a 20.0% stage REM. The patient spent 87.3% of total sleep time in the supine position. Sleep efficiency was 79.67. Respiratory Analysis The overall AHI (pAHI 4%:) is 10.6. The overall AHI (pAHI 3%:) is 14.2. The central AHI is 1.5. The AHI was 14.1 in NREM and 14.5 in REM sleep. The AHI was 14.3 in Supine and 13.6 in Non-supine sleep. Percent of Jordan Graff respirati ons is 0.0. Oximetry Data The oxygen desaturation index (NAVNEET 4%:) is 5.9. The mean saturation is 92%, and the lowest saturation is 85%. Time spent with saturation < 88% is 1.3 minutes. Snoring Profile Snoring average intensity is 42 dB. The patient snored above 45 decibels for 20.4 minutes, 7.0% of sleep time. Cardiac Profile The average pulse rate is 80 beats per minutes. The lowest pulse rate is 61 bpm. The highest pulse rate reported is 110 bpm. Atrial fibrillation was not detected. Premature beats occur <0.1 per minute. Assessment and Plan Assessment and Plan (1) MIA (obstructive sleep apnea): Code(s): G47.33 - Obstructive sleep apnea (adult) (pediatric) Status: Acute Assessment and Plan: The patient had an overall AHI of 10.6 with desaturation down to 85%. This is consistent with mild sleep apnea. Due to the patient's anxiety, she qualifies for treatment. I recommend that the patient be prescribed AutoPAP 5-15 cm H2O, CPAP mask/filters/tubing and heated humidity. A mandibular advancement device is also an acceptable treatment option. This should be used with all episodes of sleep.? Compliance should be reviewed within 31-90 days of starting therapy for usage greater than 4 hours per night greater than 70% of the nights. The patient should be asked about symptoms such as?excessive daytime sleepiness, quality of sleep, decreased nocturia, incr eased?mental functioning such as memory, mood, and concentration. The patient's sleep history is highly suggestive of Restless Leg Syndrome. I recommend that the patient have a serum ferritin drawn for evaluation of iron deficiency anemia. If the patient has a serum ferritin less than 75 ng/mL, I recommend starting a daily iron supplement and a Vitamin C supplement for better absorption. If the serum ferritin is greater than 75 ng/mL, I recommend starting a dopamine agonist and titrating the dose until symptoms resolve. There are nonpharmacological methods to treat limb movements including daily exercise, stretching calf muscles before bed, avoiding excessive amounts of caffeine and alcohol, vitamin B supplementation, magnesium lotion massaged into legs before bed, and use of a weighted blanket. Data The data obtained during this sleep study is adequate for interpretation. Certification This sleep study has been reviewed by a board certified sleep medicine physician.
== END 2024-12-06 13:37 | disposition home or self-care (01) ==
PROVIDERS: PCP Internal Medicine; Visit Provider Clinical Nurse Specialist
DX: G47.10 Hypersomnia, unspecified (principal); G47.33 Obstructive sleep apnea (adult) (pediatric)
CPT/HCPCS: 95800